=== PATIENT | male | born 1955 ===

== ENCOUNTER 2017-03-26 14:10 | Emergency (ER) | payer MEDICAID ==
[2017-03-26 14:12] VITALS: BMI 26.6
[2017-03-26] MEDS ORDERED: Naproxen 550 mg Tab PO STA (14:50)
[2017-03-26] MEDS ORDERED: Naproxen 550 mg Tab PO ONE (15:16)
--- NOTE | 2017-03-26 15:38 | C.PDOC ---
History Of Present Illness 61 year old male presents to the ED with complaints of a swelling to his right buttock for the last 4 days. Patient reports history of abscess to same location a month ago, was treated with abx from dermatology and it returned. . He denies fever, abd pain, vomiting, or other complaints at this time. Time Seen by Provider: 03/26/17 14:29 Chief Complaint (Nursing): Abnormal Skin Integrity History Per: Patient History/Exam Limitations: no limitations Onset/Duration Of Symptoms: Persistent Current Symptoms Are (Timing): Still Present Location Of Injury: Right: Buttock Quality Of Symptoms: Painful, Swollen Recent travel outside of the [place]: No Additional History Per: Prior Records Past Medical History Reviewed: Historical Data, Nursing Documentation, Vital Signs Vital Signs: Last Vital Signs Temp 97.7 F 03/26/17 15:49 Pulse 76 03/26/17 15:49 Resp 20 03/26/17 15:49 BP 173/93 H 03/26/17 15:49 Pulse Ox 98 03/26/17 20:40 - Medical History PMH: Asthma, HTN, Hypercholesterolemia Comment Only: Back Problems (Herniated disc) Surgical History: Cholecystectomy - [facility] Procedures ALCOHOL DETOXIFICATION (06/26/13) CLOSED ENDOSCOPIC BIOPSY OF LARGE INTESTINE (08/30/13) NAIL REMOVAL (02/02/13) Family History: States: Unknown Family Hx - Social History Hx Tobacco Use: Yes Hx Alcohol Use: Yes (former drinker) Hx Substance Use: No - Immunization History Hx Tetanus Toxoid Vaccination: Yes Hx Influenza Vaccination: Yes Hx Pneumococcal Vaccination: Yes Review Of Systems Constitutional: Negative for: Fever, Chills Cardiovascular: Negative for: Chest Pain Respiratory: Negative for: Shortness of Breath Gastrointestinal: Negative for: Nausea Skin: Positive for: Other (Abscess to the right buttock ) Physical Exam - Physical Exam Appears: Non-toxic, No Acute Distress Skin: Warm, Dry, Other (2.5 cm area of fluctuance, erythema, and tenderness with surrounding erythema to right buttock) Head: Atraumatic Eye(s): bilateral: Normal Inspection, EOMI Nose: Normal Oral Mucosa: Moist Neck: Normal ROM, Supple Chest: Symmetrical Respiratory: No Accessory Muscle Use Gastrointestinal/Abdominal: Soft, No Tenderness Male Genital: No Testicular Tenderness, No Testicular Swelling Extremity: Normal ROM Neurological/Psych: Oriented x3, Normal Speech, Normal Motor, Normal Sensation ED Course And Treatment O2 Sat by Pulse Oximetry: 98 (room air ) Progress Note: I & D preformed. Case discussed with Dr. Saunders who saw and evaluated the patient, agreed upon plan and discharge. Discussed woun care and re-evaluation in 2 days for packing removal. - Incision & Drainage Of Abscess Anesthesia: Lidocaine 2%, With Epi Used During Procedure: Continuous Pulse Oximetry, Rodding Anode Worker Prep Used: Sterile Water, Betadine Procedure: Incised W/Scalpel Blade#: (11), Drained Pus, Irrigated Cavity W/ Saline, Probed To Break Up Loculations, Packed W/Gauze, Cultures Obtained And Sent To Lab Disposition - Disposition Disposition: HOME/ ROUTINE Disposition Time: 15:33 Condition: STABLE Additional Instructions: Wound check in 2 days. Return to ER if symptoms persist or worsen. Prescriptions: Clindamycin [Cleocin] 300 mg PO Q6 #28 cap Instructions: Abscess Incision and Drainage (ED) Forms: [employer] (Kinyarwanda) Print Language: SOUTH SUDANESE - Clinical Impression Clinical Impression: Abscess - Scribe Statement The provider has reviewed the documentation as recorded by the Scribpriti Crenshaw All medical record entries made by the Trellibpriti were at my direction and personally dictated by me. I have reviewed the chart and agree that the record accurately reflects my personal performance of the history, physical exam, medical decision making, and the department course for this patient. I have also personally directed, reviewed, and agree with the discharge instructions and disposition.
[2017-03-26 15:50] VITALS: BP 173/93; PULSE 76; RESP 20; TEMP 97.7
[2017-03-26 18:08] VITALS: O2SAT 98
== END 2017-03-26 15:59 | disposition home or self-care (01) ==
LOC: C.ER 14:10
DX: L02.31 Cutaneous abscess of buttock (principal)

== ENCOUNTER 2017-03-28 12:26 | Emergency (ER) | payer MEDICAID ==
[2017-03-28 12:26] VITALS: BMI 26.6
--- NOTE | 2017-03-28 13:42 | C.PDOC ---
History Of Present Illness The patient is a 61yo male, presents to the ED for wound check s/p I&D of an abscess present on his right buttock 2 days ago. Pt reports the packing from his wound fell out on its own when he was changing the bandage. Pt denies any fever, chills, drainage or severe pain. Reports he is feeling better compared to prior the I&D. Pt offers no additional medical complaints. Time Seen by Provider: 03/28/17 12:35 Chief Complaint (Nursing): Wound Check History Per: Patient History/Exam Limitations: no limitations Onset/Duration Of Symptoms: Days Ago (2) Location Of Injury: Right: Buttock Quality Of Symptoms: denies: Painful, Swollen, Draining Past Medical History Reviewed: Historical Data, Nursing Documentation, Vital Signs Vital Signs: Last Vital Signs Temp 97.6 F 03/28/17 13:45 Pulse 68 03/28/17 13:45 Resp 20 03/28/17 13:45 BP 165/84 H 03/28/17 13:45 Pulse Ox 98 03/28/17 14:20 - Medical History PMH: Asthma, HTN, Hypercholesterolemia Comment Only: Back Problems (Herniated disc) Surgical History: Cholecystectomy - [facility] Procedures ALCOHOL DETOXIFICATION (06/26/13) CLOSED ENDOSCOPIC BIOPSY OF LARGE INTESTINE (08/30/13) NAIL REMOVAL (02/02/13) Family History: States: Unknown Family Hx - Social History Hx Tobacco Use: Yes Hx Alcohol Use: Yes (former drinker) Hx Substance Use: No - Immunization History Hx Tetanus Toxoid Vaccination: Yes Hx Influenza Vaccination: Yes Hx Pneumococcal Vaccination: Yes Review Of Systems Constitutional: Negative for: Fever, Chills Musculoskeletal: Positive for: Other (wound on right buttock s/p I&D of abscess) Physical Exam - Physical Exam Appears: Well, No Acute Distress Skin: Normal Color Extremity: Normal ROM, Other (0.5 cm incision site with scant purulent drainage on right buttock. Approximately 2cm diameter area of surrounding induration, no tenderness or warmth. ) ED Course And Treatment O2 Sat by Pulse Oximetry: 98 (RA) Pulse Ox Interpretation: Normal Medical Decision Making Medical Decision Making: Time: 1240 Impression: 61yo male presents for re-evaluation s/p I&D 2 days ago Plan: -- Wound culture checked and clindamycin not sensitive to the bacteria. Patient to be discharged home with tetracycline. 417 pm discussed with pharmacist form pt's pharmacy' tetracycline not covered by patient's insurance; rx changed to doxycycline 100 mg po bid x 7 days. Disposition Counseled Patient/Family Regarding: Diagnosis, Need For Followup, Rx Given - Disposition Referrals: Minor Mancilla MD [Staff Provider] - Disposition: HOME/ ROUTINE Disposition Time: 13:39 Condition: STABLE Additional Instructions: Stop taking Clindamycin; start new antibiotic, tetracycline. Follow up with Dr Mancilla in a few days. Let warm water run over right buttick in shower, wash well wtih soap and water. You may apply warm compresses to that area if needed. Return to ER for nay worsening symptoms. Prescriptions: Tetracycline [Tetracycline Cap] 250 mg PO QID #28 cap Instructions: Abscess (GEN) Forms: [employer] (Tristanian) Print Language: IRISH - Clinical Impression Clinical Impression: Wound check, abscess - Scribe Statement The provider has reviewed the documentation as recorded by the Jeff Olson Provider Attestation: All medical record entries made by the eJff were at my direction and personally dictated by me. I have reviewed the chart and agree that the record accurately reflects my personal performance of the history, physical exam, medical decision making, and the department course for this patient. I have also personally directed, reviewed, and agree with the discharge instructions and disposition.
[2017-03-28 13:45] VITALS: BP 165/84; PULSE 68; RESP 20; TEMP 97.6
[2017-03-28 14:15] VITALS: O2SAT 98
== END 2017-03-28 13:47 | disposition home or self-care (01) ==
LOC: C.ER 12:26
DX: Z48.00 Encounter for change or removal of nonsurgical wound dressing (principal)

== ENCOUNTER 2017-04-22 13:37 | Emergency (ER) | payer MEDICAID ==
[2017-04-22 13:41] VITALS: BMI 37.0
[2017-04-22 13:42] VITALS: PULSE 75; RESP 18; O2SAT 98
--- NOTE | 2017-04-22 14:26 | RAD ---
HISTORY: SOB COMPARISON: Chest x-ray performed 12/16/14 TECHNIQUE: Chest PA and lateral FINDINGS: Examination limited by habitus. LUNGS: No focal consolidation. Please note that chest x-ray has limited sensitivity for the detection of pulmonary masses. PLEURA: No significant pleural effusion identified. No definite pneumothorax . CARDIOVASCULAR: Heart size appears within normal limits. Ectatic aorta. Atherosclerotic calcifications. OSSEOUS STRUCTURES: Degenerative changes. VISUALIZED UPPER ABDOMEN: Unremarkable. OTHER FINDINGS: None. IMPRESSION: No focal consolidation, significant pleural effusion, or definite pneumothorax identified.
[2017-04-22 14:59] LABS: BASO % 0.3 % (0.0-2.0); EOS # 0.5 K/uL (0.0-0.7); EOS % 5.4 % (0.0-4.0); HEMATOCRIT 36.6 % (35.0-51.0); LYMPH # 3.5 K/uL (1.0-4.3); LYMPH % 40.9 % (20.0-40.0); MEAN CORPUSCULAR HGB CONC 34.6 g/dL (33.0-37.0); MEAN PLATELET VOLUME 8.6 fL (7.2-11.7); MONO # 1.2 K/uL (0.0-0.8); MONO % 14.6 % (0.0-10.0); RED CELL DISTRIBUTION WIDTH 13.6 % (11.5-14.5); WHITE BLOOD COUNT 8.5 K/uL (4.8-10.8)
[2017-04-22 15:06] LABS: MEAN CELL VOLUME 98.5 fL (80.0-94.0)
[2017-04-22 15:07] LABS: CHLORIDE 107 mmol/L (98-107)
[2017-04-22 15:08] LABS: POTASSIUM 3.7 mmol/L (3.6-5.2); SODIUM 143 mmol/L (132-148)
--- NOTE | 2017-04-22 15:08 | C.PDOC ---
History Of Present Illness 61 y/o male presents to Emergency Department for evaluation of bilateral leg swelling and chronic back pain. Notes he has history of kidney stones and states he recently had bilateral stones removed at [facility] in [place] but does not recall surgeon's name. Denies any urinary symptoms, n/v/d, abdominal pain, fever, or sensory changes. Time Seen by Provider: 04/22/17 13:46 Chief Complaint (Nursing): Lower Extremity Problem/Injury History Per: Patient History/Exam Limitations: no limitations Onset/Duration Of Symptoms: Days Current Symptoms Are (Timing): Still Present Recent travel outside of the [place]: No Additional History Per: Patient Past Medical History Reviewed: Historical Data, Nursing Documentation, Vital Signs Vital Signs: Last Vital Signs Temp 98.2 F 04/22/17 16:24 Pulse 75 04/22/17 16:24 Resp 18 04/22/17 16:24 BP 152/90 H 04/22/17 16:24 Pulse Ox 98 04/22/17 16:24 - Medical History PMH: Asthma, Back Problems (Herniated disc), HTN, Hypercholesterolemia Surgical History: Cholecystectomy - [facility] Procedures ALCOHOL DETOXIFICATION (06/26/13) CLOSED ENDOSCOPIC BIOPSY OF LARGE INTESTINE (08/30/13) NAIL REMOVAL (02/02/13) Family History: States: Unknown Family Hx - Social History Hx Tobacco Use: Yes Hx Alcohol Use: Yes (former drinker) Hx Substance Use: No - Immunization History Hx Tetanus Toxoid Vaccination: Yes Hx Influenza Vaccination: Yes Hx Pneumococcal Vaccination: Yes Review Of Systems Except As Marked, All Systems Reviewed And Found Negative. Constitutional: Negative for: Fever, Chills Gastrointestinal: Negative for: Nausea, Vomiting, Abdominal Pain Genitourinary: Negative for: Dysuria, Frequency, Incontinence, Hematuria Musculoskeletal: Positive for: Back Pain. Negative for: Leg Pain Skin: Positive for: Other (bilateral leg swelling) Neurological: Negative for: Weakness, Numbness Physical Exam - Physical Exam Appears: Non-toxic, No Acute Distress Skin: Normal Color, Warm, Dry Head: Atraumatic, Normacephalic Eye(s): bilateral: Normal Inspection Chest: Symmetrical Cardiovascular: Rhythm Regular, No Murmur Respiratory: Normal Breath Sounds, No Rales, No Rhonchi, No Wheezing Gastrointestinal/Abdominal: Soft, No Tenderness Back: Normal Inspection, No CVA Tenderness, No Vertebral Tenderness, Paraspinal Tenderness Extremity: Normal ROM, No Tenderness, Pedal Edema (trace edema bilaterally), No Calf Tenderness, Capillary Refill (<2 sec.), No Deformity Extremity: Bilateral: Atraumatic, Normal Color And Temperature, Normal ROM Pulses: Left Dorsalis Pedis: Normal, Right Dorsalis Pedis: Normal Neurological/Psych: Oriented x3, Normal Speech Gait: Steady ED Course And Treatment - Laboratory Results Result Diagrams: 04/22/17 14:56 04/22/17 14:56 Lab Interpretation: Normal ECG: Interpreted By Me ECG Rhythm: Sinus Rhythm ECG Interpretation: Normal Rate From EC O2 Sat by Pulse Oximetry: 98 (on RA) Pulse Ox Interpretation: Normal - Radiology CXR: Interpreted by Me CXR Interpretation: Yes: No Acute Disease Progress Note: Blood work, EKG, CXR, venous duplex scan of bilateral lower extremities ordered and reviewed. Pt was given Toradol. On re-evaluation, patient is resting comfortably, no acute distress. Bilateral LE doppler: (-) DVT as per refrigerator repair technician. Treated with macrobid 100 mg PO. On re-evaluation abdomen soft non-tender Reassessment Condition: Improved Medical Decision Making Medical Decision Making: Patient concerned that he has swelling in both legs Venous doppler US bilateral LE: (-) DVT Disposition - Disposition Referrals: Kyle Mancilla MD [Medical Doctor] - Disposition: HOME/ ROUTINE Disposition Time: 17:00 Condition: GOOD Additional Instructions: Return to ED if any increase symptoms Prescriptions: Nitrofurantoin Macrocrystals [Macrobid] 1 cap PO BID #14 cap Instructions: Urinary Tract Infection in Men (DC), Leg Edema (ED), Back Pain ( ED) Forms: [employer] [employer] (Lithuanian) - POA Present On Arrival: None - Clinical Impression Clinical Impression: Leg swelling, Back pain, UTI (urinary tract infection) - PA / CONTACT LENS CURVE GRINDER / Resident Statement MD/DO has reviewed & agrees with the documentation as recorded. - Scribe Statement The provider has reviewed the documentation as recorded by the Jeff Tam All medical record entries made by the Scribe were at my direction and personally dictated by me. I have reviewed the chart and agree that the record accurately reflects my personal performance of the history, physical exam, medical decision making, and the department course for this patient. I have also personally directed, reviewed, and agree with the discharge instructions and disposition.
[2017-04-22 15:10] LABS: ALKALINE PHOSPHATASE 91 U/L (38-126); AST/SGOT 29 U/L (17-59); BILIRUBIN,TOTAL 0.7 mg/dL (0.2-1.3); CARBON DIOXIDE 27 mmol/L (22-30); GFR AFRICAN-AMERICAN > 60; TOTAL PROTEIN 6.5 g/dL (6.3-8.3)
[2017-04-22 15:11] LABS: ALT/SGPT 27 U/L (21-72); BLOOD UREA NITROGEN 22 mg/dL (9-20); CALCIUM 8.7 mg/dl (8.6-10.4); GLUCOSE,RANDOM 98 mg/dL (75-110)
[2017-04-22 15:24] LABS: RBC URINE 1663 /hpf (0-3); URINE BACTERIA FEW (<OCC); URINE BILIRUBIN NEGATIVE (NEGATIVE); URINE BLOOD 3+ (NEGATIVE); URINE COLOR Yellow (YELLOW); URINE GLUCOSE (UA) NORMAL (Normal); URINE KETONE NEGATIVE (NEGATIVE); URINE LEUKOCYTE ESTERASE 1+ Leu/uL (Negative); URINE PROTEIN 1+ mg/dL (NEGATIVE)
[2017-04-22 15:25] LABS: WBC URINE 15 /hpf (0-5)
[2017-04-22 16:24] VITALS: BP 152/90; TEMP 98.2
--- NOTE | 2017-04-23 10:46 | VASCLAB ---
PROCEDURE: Lower Extremity Venous Duplex Exam. HISTORY: Edema PRIORS: None. TECHNIQUE: Bilateral common femoral, femoral, popliteal and posterior tibial, peroneal and great saphenous veins were evaluated. Flow was assessed with color Doppler, compressibility, assessment of phasic flow and augmentation response. Report prepared by MEGAN Meeks FINDINGS: RIGHT: 1. Common Femoral Vein: 1.1. Compressibility - Fully compressible: Thrombus - None : Flow - Phasic: Augmentation -Normal: Reflux - None. 2. Femoral Vein: 2.1. Compressibility - Fully compressible: Thrombus - None : Flow - Phasic: Augmentation -Normal: Reflux - None. 3. Popliteal Vein: 3.1. Compressibility - Fully compressible: Thrombus - None : Flow - Phasic: Augmentation -Normal: Reflux - None. 4. Posterior Tibial Vein: 4.1. Compressibility - Fully compressible: Thrombus - None: Flow - Phasic: Augmentation -Normal: Reflux - None. 5. Peroneal Vein: 5.1. Compressibility - Fully compressible: Thrombus - None: Flow - Phasic: Augmentation -Normal: Reflux - None. 6. Great Saphenous Vein: 6.1. Compressibility - Fully compressible: Thrombus - None: Flow - Phasic: Augmentation - Normal: Reflux - None. LEFT: 1. Common Femoral Vein: 1.1. Compressibility - Fully compressible: Thrombus - None: Flow - Phasic: Augmentation -Normal: Reflux - None. 2. Femoral Vein: 2.1. Compressibility - Fully compressible: Thrombus - None: Flow - Phasic: Augmentation -Normal: Reflux - None. 3. Popliteal Vein: 3.1. Compressibility - Fully compressible: Thrombus - None : Flow - Phasic: Augmentation -Normal: Reflux - None. 4. Posterior Tibial Vein: 4.1. Compressibility - Fully compressible: Thrombus - None: Flow - Phasic: Augmentation -Normal: Reflux - None. 5. Peroneal Vein: 5.1. Compressibility - Fully compressible: Thrombus - None: Flow - Phasic: Augmentation -Normal: Reflux - None. 6. Great Saphenous Vein: 6.1. Compressibility - Fully compressible: Thrombus - None: Flow - Phasic: Augmentation - Normal: Reflux - None. OTHER FINDINGS: Right: None significant. Left: None significant. IMPRESSION: Right: No evidence of deep or superficial vein thrombosis of the right lower extremity. Normal valve function noted of the right side. Left: No evidence of deep or superficial vein thrombosis of the left lower extremity. Normal valve function noted of the left side.
--- NOTE | 2017-04-23 17:14 | CARD ---
APPROVED REPORT EKG Measurement Heart [id number] <Conclusion> Normal sinus rhythm Normal ECG
== END 2017-04-22 16:25 | disposition home or self-care (01) ==
LOC: C.ER 13:37
DX: N39.0 Urinary tract infection, site not specified (principal); M79.89 Other specified soft tissue disorders; M54.9 Dorsalgia, unspecified
CPT/HCPCS: 71020; 80053; 81001; 83880; 85025; 93005; 93970; 96374; 99285; J1885

== ENCOUNTER 2017-06-04 18:33 | Inpatient (IN) | payer MEDICAID ==
[2017-06-04 18:33] VITALS: BMI 37.0
--- NOTE | 2017-06-04 19:26 | C.PDOC ---
History Of Present Illness 61 year old male, whose past medical history includes asthma and social history includes smoking, presents to the ED for evaluation of subjective fever, shortness of breath and cough which began around 5 days ago. Patient is s/p 1500cc of normal saline. Patient denies chest pain, leg swelling or history of CHF. PMD KERON RIOS Time Seen by Provider: 06/04/17 19:18 Chief Complaint (Nursing): Weakness/Neurological Deficit History Per: Patient History/Exam Limitations: no limitations Onset/Duration Of Symptoms: Days (5) Current Symptoms Are (Timing): Still Present Additional History Per: Patient Past Medical History Reviewed: Historical Data, Nursing Documentation, Vital Signs Vital Signs: Last Vital Signs Temp 97.8 F 06/04/17 22:09 Pulse 101 H 06/04/17 22:09 Resp 30 H 06/04/17 22:09 BP 106/55 L 06/04/17 22:09 Pulse Ox 98 06/04/17 22:16 - Medical History PMH: Asthma, HTN, Hypercholesterolemia Comment Only: Back Problems (Herniated disc) Surgical History: Cholecystectomy - [facility] Procedures ALCOHOL DETOXIFICATION (06/26/13) CLOSED ENDOSCOPIC BIOPSY OF LARGE INTESTINE (08/30/13) NAIL REMOVAL (02/02/13) Family History: States: Unknown Family Hx - Social History Hx Tobacco Use: Yes Hx Alcohol Use: Yes (former drinker) Hx Substance Use: No - Immunization History Hx Tetanus Toxoid Vaccination: Yes Hx Influenza Vaccination: Yes Hx Pneumococcal Vaccination: Yes Review Of Systems Constitutional: Positive for: Fever Cardiovascular: Negative for: Chest Pain Respiratory: Positive for: Cough, Shortness of Breath Musculoskeletal: Negative for: Other (leg swelling ) Physical Exam - Physical Exam Appears: No Acute Distress, Other (mild toxicity SBP 70) Skin: Normal Color, Warm, Dry Head: Atraumatic, Normacephalic Eye(s): bilateral: Normal Inspection Oral Mucosa: Moist Neck: Supple Chest: Symmetrical, No Deformity, No Tenderness Cardiovascular: Rhythm Regular, No Murmur Respiratory: No Rales, Rhonchi (bilaterally ), No Wheezing, Other (tachypneic, speaking in full sentences) Extremity: Normal ROM, Capillary Refill (less than 2 seconds ) Neurological/Psych: Oriented x3, Normal Speech, Normal Cognition Gait: Steady ED Course And Treatment - Laboratory Results Result Diagrams: 06/04/17 19:34 06/04/17 19:34 ECG: Interpreted By Me ECG Rhythm: Sinus Rhythm ECG Interpretation: Normal Rate From EC O2 Sat by Pulse Oximetry: 98 Pulse Ox Interpretation: Normal Progress Note: labs, EKG, CXR ordered and reviewed. Maxipime IV and IV Fluids administered. Progress - Re-Evaluation Re-evaluation Note: 06/04/17 19:57 IVF IN PROGRESS 107/68 06/04/17 20:20 APPEARS COMFORTABLE NAD. CODE SEPSIS ACTIVATED. NO UO SINCE INITIAL EVAL. CONT IVF 06/04/17 20:45 ICU CONSULT PENDING 06/04/17 20:53 D/W DR VALDEZ C/F ICU. AWARE OF ER FINDINGS, WILL CONSULT. 06/04/17 21:20 d/w dr RIOS C/F PMD WILL ADMIT 06/04/17 22:16 CO SOB, WHEEZING. VSS. B/L EXP WHEEZE NO RALES. 06/04/17 22:18 ACCEPTED FOR ICU - Data Reviewed Data Reviewed: Lab, Diagnostic imaging, EKG, Old records - Critical Care Citical Care: Excluding Proc Time Critical Care Time: 120 minutes - Continuity of Care Discussed patient case with:: Patient, Family-HIPPA compliant, On-call PMD-pt unassigned Discussed pt. case with [employer] product consultant/specialty: Pulmonary/Crit. Care Disposition Counseled Patient/Family Regarding: Studies Performed, Diagnosis - Disposition Disposition: HOSPITALIZED Disposition Time: 21:20 Condition: SERIOUS Forms: [facility] (Brazilian) - POA Present On Arrival: None Core Measure Indicators: Code Sepsis - Clinical Impression Clinical Impression: Sepsis due to urinary tract infection, Hypotension, Acute renal insufficiency, Hypokalemia - Scribe Statement The provider has reviewed the documentation as recorded by the Scribe (Joy Tam) Provider Attestation: All medical record entries made by the Scribe were at my direction and personally dictated by me. I have reviewed the chart and agree that the record accurately reflects my personal performance of the history, physical exam, medical decision making, and the department course for this patient. I have also personally directed, reviewed, and agree with the discharge instructions and disposition. Decision To Admit - Pt Status Changed To: Hospital Disposition Of: Inpatient - Admit Certification Admit to Inpatient:: After my assessment, the patient will require hospitalization for at least two midnights. This is because of the severity of symptoms shown, intensity of services needed, and/or the medical risk in this patient being treated as an outpatient. - InPatient: Physician Admission Certification: I certify that this patient requires 2 or more midnights of care for the following reason:: SEE NOTE - . Bed Request Type: ICU Admitting Physician: Minor Rios Patient Diagnosis: Sepsis due to urinary tract infection, Hypotension, Acute renal insufficiency, Hypokalemia
[2017-06-04] MEDS ORDERED: Cefepime IV 2 gm in Dextrose 2 GM/100 ML BAG IVPB STA (19:28)
[2017-06-04 19:40] LABS: EOS # 0.1 K/uL (0.0-0.7); EOS % 0.4 % (0.0-4.0); HEMATOCRIT 29.8 % (35.0-51.0); LYMPH # 0.4 K/uL (1.0-4.3); LYMPH % 1.8 % (20.0-40.0); MEAN CELL VOLUME 97.6 fL (80.0-94.0); MEAN CORPUSCULAR HEMOGLOBIN 33.2 pg (27.0-31.0); MEAN PLATELET VOLUME 9.2 fL (7.2-11.7); MONO # 0.2 K/uL (0.0-0.8); MONO % 0.7 % (0.0-10.0); PLATELET COUNT 123 K/uL (130-400); RED CELL DISTRIBUTION WIDTH 14.3 % (11.5-14.5)
[2017-06-04 19:44] LABS: WHITE BLOOD COUNT 21.2 K/uL (4.8-10.8)
[2017-06-04 19:49] LABS: CHLORIDE 99 mmol/L (98-107); INR 1.7; POTASSIUM 2.8 mmol/L (3.6-5.2); SODIUM 131 mmol/L (132-148)
[2017-06-04 19:49] LABS: ABG ALLEN TEST POS; DRAW SITE RRA
[2017-06-04 19:51] LABS: ALB/GLOB RATIO 0.6 (1.0-2.1); ALKALINE PHOSPHATASE 180 U/L (38-126); AST/SGOT 49 U/L (17-59); BILIRUBIN,TOTAL 3.7 mg/dL (0.2-1.3); CARBON DIOXIDE 19 mmol/L (22-30); GFR AFRICAN-AMERICAN 39
[2017-06-04 19:52] LABS: ALT/SGPT 30 U/L (21-72); BLOOD UREA NITROGEN 28 mg/dL (9-20); CALCIUM 7.5 mg/dl (8.6-10.4); GLUCOSE,RANDOM 89 mg/dL (75-110); MAGNESIUM 1.7 mg/dL (1.6-2.3)
[2017-06-04] MEDS ORDERED: Potassium Chloride 20 mEq/15 ml LIQ UD PO STA (20:09)
[2017-06-04 20:14] LABS: NEUTROPHIL 55 % (50-75); TOTAL CELLS COUNTED 100
[2017-06-04] MEDS ORDERED: Potassium Chloride 20 mEq/15 ml LIQ UD ONE (20:18)
[2017-06-04 21:04] LABS: RBC URINE 17 /hpf (0-3); URINE BACTERIA MOD (<OCC); URINE BILIRUBIN NEGATIVE (NEGATIVE); URINE BLOOD 2+ (NEGATIVE); URINE COLOR Amber (YELLOW); URINE GLUCOSE (UA) NORMAL (Normal); URINE KETONE NEGATIVE (NEGATIVE); URINE PROTEIN 2+ mg/dL (NEGATIVE); WBC CLUMPS MANY /hpf; WBC URINE 3035 /hpf (0-5)
[2017-06-04 21:17] LABS: URINE LEUKOCYTE ESTERASE 3+ Leu/uL (Negative)
[2017-06-04] MEDS ORDERED: Albuterol-Ipratrop 3 mg / 0.5 (3 ml) UD ONE ×2 (22:12→22:26)
[2017-06-04 22:13] LABS: VENOUS BLOOD GAS BASE EXCESS -9.9 mmol/L (0.0-2.0); VENOUS BLOOD GAS PCO2 35 mmHg (40-60); VENOUS BLOOD PH 7.27 (7.32-7.43)
[2017-06-04] MEDS ORDERED: Potassium Phosphate 15 MMOLE in Sodium Chloride 0.9% 250 ML IVPB ONE (22:19)
[2017-06-04] MEDS: Albuterol 0.083% Inhal Sol (2.5 mg/3 mL) UD INH SCH (22:33)
[2017-06-04] MEDS ORDERED: Potassium Phosphate 15 MMOLE in Dextrose 5% In Water 250 ML IVPB ONE (23:00)
[2017-06-04] MEDS ORDERED: Lactated Ringer's 1,000 ML IV ONE (23:24)
--- NOTE | 2017-06-04 23:43 | CP.PCM.CON ---
History of Present Illness - History of Present Illness History of Present Illness: 61 M with h/l HTN, asthma, ureteric calculi with h/o lithotripsy, BPH, tobacco abuse, ex alcohol abuse, chronic low back pain came to ER with c/o being sick x1 wk with fever, weakness, dizzy today, progressively getting worse. In ER was found hypotensive, needed about 5 lit of ivf, low in electrolytes K, mg, phos, JD noticed with creat 2.1, initial CXR fine, maintained spo2, hr in 100s, BP 100/60 range, c/o some chronic low back pain. Patient did c/o worsening asthma, fonud to be wheezing but maintaining spo2 in 97 on 2 lit nc. PMH as above PSH litho tirpsy Allergy moxifoxacin noticed in chart, but patient denied any allergies Meds noticed coreg,flomax, neb, chlolesterol meds Family history not contributory Social smokes 1PPD, drinks small amount few days a wk 1-2 drinks, denied any drugs Review of Systems - Review of Systems All systems: reviewed and no additional remarkable complaints except (HPI) Past Patient History - Infectious Disease Hx of Infectious Diseases: None - Past Social History Smoking Status: Heavy Smoker > 10 Cigarettes Daily Alcohol: < 2 Drinks/Day Drugs: Denies Home Situation {Lives}: With Family - CARDIAC Hx Hypercholesterolemia: Yes Hx Hypertension: Yes - PULMONARY Hx Asthma: Yes - NEUROLOGICAL HX Cerebrovascular Accident: No - ENDOCRINE/METABOLIC Hx Endocrine Disorders: Yes Hx Diabetes Mellitus Type 1: Yes - HEMATOLOGICAL/ONCOLOGICAL Hx Cancer: No - MUSCULOSKELETAL/RHEUMATOLOGICAL Hx Musculoskeletal Disorders: Yes Hx Herniated Disk: Yes - PSYCHIATRIC Hx Substance Use: No - SURGICAL HISTORY Hx Cholecystectomy: Yes - ANESTHESIA Hx Anesthesia: Yes Hx Anesthesia Reactions: No Meds Allergies/Adverse Reactions: Allergies Allergy/AdvReac Type Severity Reaction Status Date / Time moxifloxacin HCl Allergy Intermediate RASH Verified 06/04/17 18:50 [From Avelox] - Medications Medications: Current Medications Heparin Sodium (Porcine) (Heparin) 5,000 units SC Q8 PAM Potassium Phosphate 15 mmole/ (Dextrose) 255 mls @ 42.5 mls/hr IVPB ONCE ONE Stop: 06/05/17 04:59 Last Admin: 06/04/17 23:00 Dose: 42.5 mls/hr Lactated Ringer's (Lactated Ringer's) 1,000 mls @ 1,000 mls/hr IV .Q1H ONE Stop: 06/05/17 00:23 Last Admin: 06/04/17 23:26 Dose: 1,000 mls/hr Meropenem 1 gm/ Sodium (Chloride) 100 mls @ 200 mls/hr IVPB Q12H PAM Pantoprazole Sodium (Protonix Ec Tab) 40 mg PO DAILY PAM Physical Exam - Additional Findings Additional findings: * HEENT VALERIE * Neck supple * Chest Wheezing exp, diffuse * PA soft, nt bs present, no CVA tenderness * Ext no edema * [employer] awake oriented x3, moving all ext * skin normal turgor euvoliemic after 4 lit of fluid. Results - Vital Signs Recent Vital Signs: Last Vital Signs Temp 97 F L 06/04/17 23:24 Pulse 99 H 06/04/17 23:24 Resp 20 06/04/17 23:24 BP 91/49 L 06/04/17 23:24 Pulse Ox 95 06/04/17 23:24 - Labs Result Diagrams: 06/04/17 19:34 06/04/17 19:34 Labs: Laboratory Results - last 24 hr 06/04/17 06/04/17 06/04/17 19:26 19:34 19:34 WBC 21.2 H D RBC 3.05 L Hgb 10.1 L D Hct 29.8 L MCV 97.6 H MCH 33.2 H MCHC 34.0 RDW 14.3 Plt Count 123 L MPV 9.2 Neut % (Auto) 97.1 H Lymph % (Auto) 1.8 L [place] % (Auto) 0.7 Eos % (Auto) 0.4 Baso % (Auto) 0.0 Neut # 20.6 H Lymph # 0.4 L [place] # 0.2 Eos # 0.1 Baso # 0.0 Neutrophils % (Manual) 55 Band Neutrophils % 43 H* Lymphocytes % (Manual) 1 L Monocytes % (Manual) 1 Platelet Estimate Slightly decreased L Hypochromasia (manual) Slight Poikilocytosis (manual Slight Anisocytosis (manual) Slight Microcytosis (manual) Slight PT 19.8 H INR 1.7 APTT 30 Puncture Site pCO2 pO2 HCO3 ABG pH ABG Total CO2 ABG O2 Saturation ABG Base Excess Tenzin Test ABG Potassium VBG pH VBG pCO2 VBG HCO3 VBG Total CO2 VBG O2 Sat (Calc) VBG Base Excess VBG Potassium Glucose Lactate Liter Flow Blood Gas Comments Crit Value Called To Crit Value Called By Crit Value Read Back Blood Gas Notified Time Sodium Potassium Chloride Carbon Dioxide Anion Gap BUN Creatinine Est GFR ( Amer) Est GFR (Non-Af Amer) POC Glucose (mg/dL) 95 Random Glucose Calcium Phosphorus Magnesium Total Bilirubin AST ALT Alkaline Phosphatase Troponin I NT-Pro-B Natriuret Pep Total Protein Albumin Globulin Albumin/Globulin Ratio Arterial Blood Potassium Venous Blood Potassium Urine Color Urine Clarity Urine pH Ur Specific [place] Urine Protein Urine Glucose (UA) Urine Ketones Urine Blood Urine Nitrate Urine Bilirubin Urine Urobilinogen Ur Leukocyte Esterase Urine WBC (Auto) Urine RBC (Auto) Urine WBC Clumps (Auto) Ur Squamous Epith Cells Urine Bacteria Influenza Typ A,B (EIA) 06/04/17 06/04/17 06/04/17 19:34 19:40 20:54 WBC RBC Hgb Hct MCV MCH MCHC RDW Plt Count MPV Neut % (Auto) Lymph % (Auto) [place] % (Auto) Eos % (Auto) Baso % (Auto) Neut # Lymph # [place] # Eos # Baso # Neutrophils % (Manual) Band Neutrophils % Lymphocytes % (Manual) Monocytes % (Manual) Platelet Estimate Hypochromasia (manual) Poikilocytosis (manual Anisocytosis (manual) Microcytosis (manual) PT INR APTT Puncture Site Rra pCO2 33 L pO2 42 L* HCO3 19.7 L ABG pH 7.36 ABG Total CO2 19.6 L ABG O2 Saturation 82.5 L ABG Base Excess -5.9 L Tenzin Test Pos ABG Potassium 2.4 L* VBG pH VBG pCO2 VBG HCO3 VBG Total CO2 VBG O2 Sat (Calc) VBG Base Excess VBG Potassium Glucose 81 Lactate 2.8 H Liter Flow 2.0 Blood Gas Comments Mixed abg Crit Value Called To Dr britton Crit Value Called By Juanito bolivar Crit Value Read Back Y Blood Gas Notified Time 1950 Sodium 131 L 138.0 Potassium 2.8 L Chloride 99 109.0 H Carbon Dioxide 19 L Anion Gap 16 BUN 28 H Creatinine 2.1 H Est GFR ( Amer) 39 Est GFR (Non-Af Amer) 32 POC Glucose (mg/dL) Random Glucose 89 Calcium 7.5 L Phosphorus 1.0 L* Magnesium 1.7 Total Bilirubin 3.7 H AST 49 ALT 30 Alkaline Phosphatase 180 H D Troponin I < 0.0120 NT-Pro-B Natriuret Pep 352 Total Protein 6.0 L Albumin 2.3 L D Globulin 3.7 Albumin/Globulin Ratio 0.6 L Arterial Blood Potassium 2.4 L* Venous Blood Potassium Urine Color [place] Urine Clarity Turbid Urine pH 5.0 Ur Specific [place] 1.016 Urine Protein 2+ H Urine Glucose (UA) Normal Urine Ketones Negative Urine Blood 2+ H Urine Nitrate Negative Urine Bilirubin Negative Urine Urobilinogen 4.0 Ur Leukocyte Esterase 3+ H Urine WBC (Auto) 3035 H Urine RBC (Auto) 17 H Urine WBC Clumps (Auto) Many H Ur Squamous Epith Cells 4 Urine Bacteria Mod H Influenza Typ A,B (EIA) 06/04/17 06/04/17 22:10 Unknown WBC RBC Hgb Hct MCV MCH MCHC RDW Plt Count MPV Neut % (Auto) Lymph % (Auto) [place] % (Auto) Eos % (Auto) Baso % (Auto) Neut # Lymph # [place] # Eos # Baso # Neutrophils % (Manual) Band Neutrophils % Lymphocytes % (Manual) Monocytes % (Manual) Platelet Estimate Hypochromasia (manual) Poikilocytosis (manual Anisocytosis (manual) Microcytosis (manual) PT INR APTT Puncture Site pCO2 pO2 49 HCO3 ABG pH ABG Total CO2 ABG O2 Saturation ABG Base Excess Tenzin Test ABG Potassium VBG pH 7.27 L VBG pCO2 35 L VBG HCO3 16.7 VBG Total CO2 17.2 L VBG O2 Sat (Calc) 86.8 H VBG Base Excess -9.9 L VBG Potassium 3.1 L Glucose 73 L Lactate 2.4 H Liter Flow Blood Gas Comments Crit Value Called To Crit Value Called By Crit Value Read Back Blood Gas Notified Time Sodium 141.0 Potassium Chloride 116.0 H Carbon Dioxide Anion Gap BUN Creatinine Est GFR ( Amer) Est GFR (Non-Af Amer) POC Glucose (mg/dL) Random Glucose Calcium Phosphorus Magnesium Total Bilirubin AST ALT Alkaline Phosphatase Troponin I NT-Pro-B Natriuret Pep Total Protein Albumin Globulin Albumin/Globulin Ratio Arterial Blood Potassium Venous Blood Potassium 3.1 L Urine Color Urine Clarity Urine pH Ur Specific [place] Urine Protein Urine Glucose (UA) Urine Ketones Urine Blood Urine Nitrate Urine Bilirubin Urine Urobilinogen Ur Leukocyte Esterase Urine WBC (Auto) Urine RBC (Auto) Urine WBC Clumps (Auto) Ur Squamous Epith Cells Urine Bacteria Influenza Typ A,B (EIA) Negative for flu a/b Assessment & Plan - Assessment and Plan (Free Text) Assessment: * Sepsis, early shock, source unclear suspected urine/Calculi * H/o ureteric caluli * BPH * HTN history * Tobacco abuse counselled * Plan: * Meropenem added due to shock * CT chest abd pelvis to look for surce, urine * Louie * GI/DVT prophylaxis * Echo * Nebs, inhaled steroids * Vasopressor, central line if persistent hypotension, possibility of steroids * See orders for detail.
[2017-06-05] MEDS: Meropenem 1 GM in Sodium Chloride 0.9% 100 ML IVPB SCH ×2 (00:20→10:51)
--- NOTE | 2017-06-05 01:02 | CT ---
EXAM: CT Abdomen and Pelvis Without Intravenous Contrast CLINICAL HISTORY: 61 years old, male; Pain; Abdominal pain; Chest pain; Additional info: Sepsis, hypotension TECHNIQUE: Axial computed tomography images of the abdomen and pelvis without intravenous contrast. All CT scans at this facility use one or more dose reduction techniques, viz.: automated exposure control; ma/kV adjustment per patient size (including targeted exams where dose is matched to indication; i.e. head); or iterative reconstruction technique. Coronal and sagittal reformatted images were created and reviewed. COMPARISON: No relevant prior studies available. FINDINGS: ABDOMEN: Liver: No acute findings Gallbladder and bile ducts: The gallbladder is surgically absent. No intra-extrahepatic biliary ductal dilation. Pancreas: Limited evaluation secondary to the lack of intravenous contrast. Spleen: No acute findings. Adrenals: No acute findings. Kidneys and ureters: Moderate right-sided hydroureteronephrosis extending to the proximal right ureter where a 9 mm stone is identified. The left kidney and ureter are unremarkable. PELVIS: Bladder: The bladder is decompressed, and otherwise unremarkable. Reproductive: No acute findings. Appendix: The appendix is of normal-caliber (series 6, image 134). ABDOMEN and PELVIS: Stomach and bowel: Diffuse mural thickening within the colon, a nonspecific finding. Colonic diverticulosis, without inflammation. Peritoneum: No acute findings. Lymph nodes: Limited evaluation without intravenous contrast. Vasculature: No aortic aneurysm. Calcified atherosclerotic disease. Bones: No acute fracture. IMPRESSION: Moderate right-sided hydroureteronephrosis secondary to a 9 mm stone in the proximal right ureter. Multiple nonacute findings, as detailed above. EXAM: CT Chest Without Intravenous Contrast CLINICAL HISTORY: 61 years old, male; Pain; Abdominal pain; Chest pain; Additional info: Sepsis, hypotension TECHNIQUE: Axial computed tomography images of the chest without intravenous contrast. All CT scans at this facility use one or more dose reduction techniques, viz.: automated exposure control; ma/kV adjustment per patient size (including targeted exams where dose is matched to indication; i.e. head); or iterative reconstruction technique. Coronal and sagittal reformatted images were created and reviewed. COMPARISON: No relevant prior studies available. FINDINGS: Lungs: No mass. No consolidation. Bibasilar atelectasis. Pleural spaces: No significant effusion. No pneumothorax. Heart: No cardiomegaly. No significant pericardial effusion. Vasculature: No aortic aneurysm. Calcified atherosclerotic disease. Lymph nodes: Moderate mediastinal lymphadenopathy. The largest lymph node is within the right paratracheal position measuring 15 mm in short axis dimension. Bones: No acute fracture. Decreased attenuation within the left lobe of the thyroid gland. IMPRESSION: Bibasilar atelectasis with mediastinal lymphadenopathy.
[2017-06-05] MEDS ORDERED: Lactated Ringer's 1,000 ML IV ONE (02:34)
[2017-06-05] MEDS: Sodium Chloride 0.9% 1,000 ML IV SCH ×3 (04:06→19:01)
--- NOTE | 2017-06-05 08:03 | RAD ---
HISTORY: Sepsis Patient COMPARISON: No prior. FINDINGS: LUNGS: Diminished history effort however there is no acute infiltrate appreciated bilaterally. PLEURA: No significant pleural effusion identified, no pneumothorax apparent. CARDIOVASCULAR: Likely technical magnification of the cardiac silhouette. No pulmonary derangement identified. OSSEOUS STRUCTURES: No significant abnormalities. VISUALIZED UPPER ABDOMEN: Normal. OTHER FINDINGS: None. IMPRESSION: No acute infiltrate bilaterally. Diminished history volume.
[2017-06-05 08:24] LABS: POTASSIUM 4.3 mmol/L (3.6-5.2)
[2017-06-05 08:28] LABS: BILIRUBIN,TOTAL 4.2 mg/dL (0.2-1.3)
[2017-06-05 08:29] LABS: ALB/GLOB RATIO 0.6 (1.0-2.1); TOTAL PROTEIN 5.8 g/dL (6.3-8.3)
[2017-06-05 08:30] LABS: CALCIUM 6.9 mg/dl (8.6-10.4); MAGNESIUM 1.4 mg/dL (1.6-2.3); PHOSPHOROUS 4.5 mg/dL (2.5-4.5)
[2017-06-05] MEDS: Budesonide 0.5 mg/2 ml Inhal Susp UD INH SCH ×2 (08:36→18:44)
[2017-06-05] MEDS: Albuterol-Ipratrop 3 mg / 0.5 (3 ml) UD INH SCH ×4 (08:36→18:44)
[2017-06-05] MEDS ORDERED: Midazolam 2 MG/2 ML VIAL ONE (10:40)
[2017-06-05] MEDS ORDERED: Propofol 10 mg/ml Inj (20 ML) ONE (10:41)
[2017-06-05] MEDS ORDERED: Phenylephrine 10 mg/ml Inj ONE (10:43)
[2017-06-05] MEDS: Pantoprazole 40 mg EC Tab PO SCH ×2 (10:52→16:11)
--- NOTE | 2017-06-05 11:07 | RAD ---
PROCEDURE: CHEST RADIOGRAPH, 1 VIEW HISTORY: new [facility] COMPARISON: Portable chest 06/04/2017. FINDINGS: Interval left central venous line in place by an apparent internal jugular approach with tip terminating at the superior vena cava. LUNGS: Clear. PLEURA: No pneumothorax or pleural fluid seen. CARDIOVASCULAR: Prominent cardiac silhouette is again appreciated with accentuated pulmonary vascular suspicious for CHF. Clinically correlate further. OSSEOUS STRUCTURES: No significant abnormalities. VISUALIZED UPPER ABDOMEN: Normal. OTHER FINDINGS: None. IMPRESSION: Findings suspicious for early CHF. No acute infiltrate bilaterally or pleural effusion. Patient rotated toward the right limiting interpretation. Further clinical correlation is advised.
--- NOTE | 2017-06-05 11:57 | CARD ---
APPROVED REPORT EKG Measurement Heart [id number] <Conclusion> Normal sinus rhythm Septal infarct, age undetermined Abnormal ECG
--- NOTE | 2017-06-05 12:43 | CP.CCUPN ---
<Neri Serna E - Last Filed: 06/05/17 19:03> CCU Subjective - Physician Review Subjective (Free Text): Patient was seen and examined at bedside s/p Cytoscopy with R stent insertion. Patient reports that he is doing well, tolerating tolerating. Patient denies chest pain, SOB, palpitations, fever, chills, nausea and vomiting but admits to back pain, that is chronic. CCU Objective - Vital Signs / Intake & Output Vital Signs (Last 4 hours): Vital Signs Temp Pulse Resp BP Pulse Ox 06/05/17 12:00 96 H 20 144/70 99 06/05/17 11:00 98.2 F 95 H 20 148/80 98 06/05/17 10:00 98.1 F 90 20 152/64 H 98 Intake and Output (Last 8hrs): Intake & Output 06/04/17 06/05/17 06/05/17 22:59 06:59 14:59 Intake Total 2791.5 1100 Output Total 600 800 Balance 2191.5 300 Weight 190 lb 262 lb 5.601 oz Intake: Intake, IV Amount 2311.5 1100 Left Proximal Port 450 Internal Jugular Left Wrist 2099 450 Right Hand 212.5 200 Oral 480 Output: Urine 600 800 Urethral (Louie) 500 800 Urine, Voided 100 Other: # Bowel Movements 1 1 - Physical Exam Head: Positive for: Atraumatic, Normocephalic Conjunctiva: Positive for: Normal Mouth: Positive for: Moist Mucous Membranes Respiratory/Chest: Positive for: Good Air Exchange. Negative for: Respiratory Distress, Accessory Muscle Use Cardiovascular: Positive for: Regular Rate and Rhythm, Normal S1, S2 Abdomen: Positive for: Normal Bowel Sounds. Negative for: Tenderness, Peritoneal Signs Upper Extremity: Positive for: Normal Inspection. Negative for: Edema Lower Extremity: Positive for: Normal Inspection. Negative for: Edema Neurological: Positive for: GCS=15, Speech Normal Skin: Positive for: Normal Color Psychiatric: Positive for: Alert, Oriented x 3 - Medications Active Medications: Active Medications Generic Name Dose Route Start Last Admin Trade Name Freq PRN Reason Stop Dose Admin Albuterol/Ipratropium 3 ml 06/05/17 02:00 06/05/17 08:36 Duoneb 3 Mg/0.5 Mg (3 Ml) Ud INH 3 ml RQ6 PAM Administration Budesonide 0.5 mg 06/05/17 08:00 06/05/17 08:36 Pulmicort Respules INH 0.5 mg RQ12 PAM Administration Heparin Sodium (Porcine) 5,000 units 06/05/17 06:00 06/05/17 06:37 Heparin SC 5,000 units Q8 PAM Administration Meropenem 1 gm/ Sodium 100 mls @ 200 mls/hr 06/04/17 23:30 06/05/17 10:51 Chloride IVPB 200 mls/hr Q12H PAM Administration Sodium Chloride 1,000 mls @ 150 mls/hr 06/05/17 04:00 06/05/17 10:50 Sodium Chloride 0.9% IV Not Given .[id number] PAM Pantoprazole Sodium 40 mg 06/05/17 10:00 06/05/17 10:52 Protonix Ec Tab PO Not Given DAILY PAM - Patient Studies Lab Studies: Microbiology Studies 06/04/17 Unknown Urine Culture - Preliminary Urine Gram Negative Gabino Lab Studies 06/05/17 06/05/17 06/04/17 Range/Units 07:41 06:50 Unknown WBC (4.8-10.8) K/uL RBC (4.40-5.90) Mil/uL Hgb (12.0-18.0) g/dL Hct (35.0-51.0) % MCV (80.0-94.0) fL MCH (27.0-31.0) pg MCHC (33.0-37.0) g/dL RDW (11.5-14.5) % Plt Count (130-400) K/uL MPV (7.2-11.7) fL Neut % (Auto) (50.0-75.0) % Lymph % (Auto) (20.0-40.0) % [place] % (Auto) (0.0-10.0) % Eos % (Auto) (0.0-4.0) % Baso % (Auto) (0.0-2.0) % Neut # (1.8-7.0) K/uL Lymph # (1.0-4.3) K/uL [place] # (0.0-0.8) K/uL Eos # (0.0-0.7) K/uL Baso # (0.0-0.2) K/uL Neutrophils % (Manual) (50-75) % Band Neutrophils % (0-2) % Lymphocytes % (Manual) (20-40) % Monocytes % (Manual) (0-10) % Platelet Estimate (NORMAL) Hypochromasia (manual) Poikilocytosis (manual Anisocytosis (manual) Microcytosis (manual) PT (9.7-12.2) SECONDS INR APTT (21-34) SECONDS Puncture Site pCO2 (35-45) mm/Hg pO2 (80-100) mm/Hg HCO3 (21-28) mmol/L ABG pH (7.35-7.45) ABG Total CO2 (22-28) mmol/L ABG O2 Saturation (95-98) % ABG Base Excess (-2.0-3.0) mmol/L Tenz[place] Test ABG Potassium (3.6-5.2) mmol/L VBG pH (7.32-7.43) VBG pCO2 (40-60) mmHg VBG HCO3 mmol/L VBG Total CO2 (22-28) mmol/L VBG O2 Sat (Calc) (40-65) % VBG Base Excess (0.0-2.0) mmol/L VBG Potassium (3.6-5.2) mmol/L Glucose (75-110) mg/dl Lactate (0.7-2.1) mmol/L Liter Flow Blood Gas Comments Crit Value Called To Crit Value Called By Crit Value Read Back Blood Gas Notified Time Sodium 132 (132-148) mmol/L Potassium 4.3 (3.6-5.2) mmol/L Chloride 104 (98-107) mmol/L Carbon Dioxide 20 L (22-30) mmol/L Anion Gap 12 (10-20) BUN 26 H (9-20) mg/dL Creatinine 1.8 H (0.8-1.5) mg/dL Est GFR ( Amer) 47 Est GFR (Non-Af Amer) 39 POC Glucose (mg/dL) (65-110) mg/dL Random Glucose 90 (75-110) mg/dL Calcium 6.9 L (8.6-10.4) mg/dl Phosphorus 4.5 (2.5-4.5) mg/dL Magnesium 1.4 L (1.6-2.3) mg/dL Total Bilirubin 4.2 H (0.2-1.3) mg/dL AST 74 H D (17-59) U/L ALT 39 (21-72) U/L Alkaline Phosphatase 125 (38-126) U/L Troponin I (0.00-0.120) ng/mL NT-Pro-B Natriuret Pep (0-900) pg/mL Total Protein 5.8 L (6.3-8.3) g/dL Albumin 2.2 L (3.5-5.0) g/dL Globulin 3.6 (2.2-3.9) gm/dL Albumin/Globulin Ratio 0.6 L (1.0-2.1) Procalcitonin 32.79 H (0.19-0.49) NG/ML Arterial Blood Potassium (3.6-5.2) mmol/L Venous Blood Potassium (3.6-5.2) mmol/L Urine Color (YELLOW) Urine Clarity (Clear) Urine pH (5.0-8.0) Ur Specific [place] (1.003-1.030) Urine Protein (NEGATIVE) mg/dL Urine Glucose (UA) (Normal) mg/dL Urine Ketones (NEGATIVE) mg/dL Urine Blood (NEGATIVE) Urine Nitrate (NEGATIVE) Urine Bilirubin (NEGATIVE) Urine Urobilinogen (0.2-1.0) mg/dL Ur Leukocyte Esterase (Negative) Juan/uL Urine WBC (Auto) (0-5) /hpf Urine RBC (Auto) (0-3) /hpf Urine WBC Clumps (Auto) (NONE) /hpf Ur Squamous Epith Cells (0-5) /hpf Urine Bacteria (<OCC) Influenza Typ A,B (EIA) Negative for flu a/b (NEGATIVE) 06/04/17 06/04/17 06/04/17 Range/Units 22:10 20:54 19:40 WBC (4.8-10.8) K/uL RBC (4.40-5.90) Mil/uL Hgb (12.0-18.0) g/dL Hct (35.0-51.0) % MCV (80.0-94.0) fL MCH (27.0-31.0) pg MCHC (33.0-37.0) g/dL RDW (11.5-14.5) % Plt Count (130-400) K/uL MPV (7.2-11.7) fL Neut % (Auto) (50.0-75.0) % Lymph % (Auto) (20.0-40.0) % [place] % (Auto) (0.0-10.0) % Eos % (Auto) (0.0-4.0) % Baso % (Auto) (0.0-2.0) % Neut # (1.8-7.0) K/uL Lymph # (1.0-4.3) K/uL [place] # (0.0-0.8) K/uL Eos # (0.0-0.7) K/uL Baso # (0.0-0.2) K/uL Neutrophils % (Manual) (50-75) % Band Neutrophils % (0-2) % Lymphocytes % (Manual) (20-40) % Monocytes % (Manual) (0-10) % Platelet Estimate (NORMAL) Hypochromasia (manual) Poikilocytosis (manual Anisocytosis (manual) Microcytosis (manual) PT (9.7-12.2) SECONDS INR APTT (21-34) SECONDS Puncture Site Rra pCO2 33 L (35-45) mm/Hg pO2 49 42 L* (80-100) mm/Hg HCO3 19.7 L (21-28) mmol/L ABG pH 7.36 (7.35-7.45) ABG Total CO2 19.6 L (22-28) mmol/L ABG O2 Saturation 82.5 L (95-98) % ABG Base Excess -5.9 L (-2.0-3.0) mmol/L Tenzin Test Pos ABG Potassium 2.4 L* (3.6-5.2) mmol/L VBG pH 7.27 L (7.32-7.43) VBG pCO2 35 L (40-60) mmHg VBG HCO3 16.7 mmol/L VBG Total CO2 17.2 L (22-28) mmol/L VBG O2 Sat (Calc) 86.8 H (40-65) % VBG Base Excess -9.9 L (0.0-2.0) mmol/L VBG Potassium 3.1 L (3.6-5.2) mmol/L Glucose 73 L 81 (75-110) mg/dl Lactate 2.4 H 2.8 H (0.7-2.1) mmol/L Liter Flow 2.0 Blood Gas Comments Mixed abg Crit Value Called To Dr britton Crit Value Called By Juanito bolivar Crit Value Read Back Y Blood Gas Notified Time 1949 Sodium 141.0 138.0 (132-148) mmol/L Potassium (3.6-5.2) mmol/L Chloride 116.0 H 109.0 H (98-107) mmol/L Carbon Dioxide (22-30) mmol/L Anion Gap (10-20) BUN (9-20) mg/dL Creatinine (0.8-1.5) mg/dL Est GFR ( Amer) Est GFR (Non-Af Amer) POC Glucose (mg/dL) (65-110) mg/dL Random Glucose (75-110) mg/dL Calcium (8.6-10.4) mg/dl Phosphorus (2.5-4.5) mg/dL Magnesium (1.6-2.3) mg/dL Total Bilirubin (0.2-1.3) mg/dL AST (17-59) U/L ALT (21-72) U/L Alkaline Phosphatase (38-126) U/L Troponin I (0.00-0.120) ng/mL NT-Pro-B Natriuret Pep (0-900) pg/mL Total Protein (6.3-8.3) g/dL Albumin (3.5-5.0) g/dL Globulin (2.2-3.9) gm/dL Albumin/Globulin Ratio (1.0-2.1) Procalcitonin (0.19-0.49) NG/ML Arterial Blood Potassium 2.4 L* (3.6-5.2) mmol/L Venous Blood Potassium 3.1 L (3.6-5.2) mmol/L Urine Color [place] (YELLOW) Urine Clarity Turbid (Clear) Urine pH 5.0 (5.0-8.0) Ur Specific [place] 1.016 (1.003-1.030) Urine Protein 2+ H (NEGATIVE) mg/dL Urine Glucose (UA) Normal (Normal) mg/dL Urine Ketones Negative (NEGATIVE) mg/dL Urine Blood 2+ H (NEGATIVE) Urine Nitrate Negative (NEGATIVE) Urine Bilirubin Negative (NEGATIVE) Urine Urobilinogen 4.0 (0.2-1.0) mg/dL Ur Leukocyte Esterase 3+ H (Negative) Juan/uL Urine WBC (Auto) 3035 H (0-5) /hpf Urine RBC (Auto) 17 H (0-3) /hpf Urine WBC Clumps (Auto) Many H (NONE) /hpf Ur Squamous Epith Cells 4 (0-5) /hpf Urine Bacteria Mod H (<OCC) Influenza Typ A,B (EIA) (NEGATIVE) 06/04/17 06/04/17 06/04/17 Range/Units 19:34 19:34 19:34 WBC 21.2 H D (4.8-10.8) K/uL RBC 3.05 L (4.40-5.90) Mil/uL Hgb 10.1 L D (12.0-18.0) g/dL Hct 29.8 L (35.0-51.0) % MCV 97.6 H (80.0-94.0) fL MCH 33.2 H (27.0-31.0) pg MCHC 34.0 (33.0-37.0) g/dL RDW 14.3 (11.5-14.5) % Plt Count 123 L (130-400) K/uL MPV 9.2 (7.2-11.7) fL Neut % (Auto) 97.1 H (50.0-75.0) % Lymph % (Auto) 1.8 L (20.0-40.0) % [place] % (Auto) 0.7 (0.0-10.0) % Eos % (Auto) 0.4 (0.0-4.0) % Baso % (Auto) 0.0 (0.0-2.0) % Neut # 20.6 H (1.8-7.0) K/uL Lymph # 0.4 L (1.0-4.3) K/uL [place] # 0.2 (0.0-0.8) K/uL Eos # 0.1 (0.0-0.7) K/uL Baso # 0.0 (0.0-0.2) K/uL Neutrophils % (Manual) 55 (50-75) % Band Neutrophils % 43 H* (0-2) % Lymphocytes % (Manual) 1 L (20-40) % Monocytes % (Manual) 1 (0-10) % Platelet Estimate Slightly decreased L (NORMAL) Hypochromasia (manual) Slight Poikilocytosis (manual Slight Anisocytosis (manual) Slight Microcytosis (manual) Slight PT 19.8 H (9.7-12.2) SECONDS INR 1.7 APTT 30 (21-34) SECONDS Puncture Site pCO2 (35-45) mm/Hg pO2 (80-100) mm/Hg HCO3 (21-28) mmol/L ABG pH (7.35-7.45) ABG Total CO2 (22-28) mmol/L ABG O2 Saturation (95-98) % ABG Base Excess (-2.0-3.0) mmol/L Tenz[place] Test ABG Potassium (3.6-5.2) mmol/L VBG pH (7.32-7.43) VBG pCO2 (40-60) mmHg VBG HCO3 mmol/L VBG Total CO2 (22-28) mmol/L VBG O2 Sat (Calc) (40-65) % VBG Base Excess (0.0-2.0) mmol/L VBG Potassium (3.6-5.2) mmol/L Glucose (75-110) mg/dl Lactate (0.7-2.1) mmol/L Liter Flow Blood Gas Comments Crit Value Called To Crit Value Called By Crit Value Read Back Blood Gas Notified Time Sodium 131 L (132-148) mmol/L Potassium 2.8 L (3.6-5.2) mmol/L Chloride 99 (98-107) mmol/L Carbon Dioxide 19 L (22-30) mmol/L Anion Gap 16 (10-20) BUN 28 H (9-20) mg/dL Creatinine 2.1 H (0.8-1.5) mg/dL Est GFR ( Amer) 39 Est GFR (Non-Af Amer) 32 POC Glucose (mg/dL) (65-110) mg/dL Random Glucose 89 (75-110) mg/dL Calcium 7.5 L (8.6-10.4) mg/dl Phosphorus 1.0 L* (2.5-4.5) mg/dL Magnesium 1.7 (1.6-2.3) mg/dL Total Bilirubin 3.7 H (0.2-1.3) mg/dL AST 49 (17-59) U/L ALT 30 (21-72) U/L Alkaline Phosphatase 180 H D (38-126) U/L Troponin I < 0.0120 (0.00-0.120) ng/mL NT-Pro-B Natriuret Pep 352 (0-900) pg/mL Total Protein 6.0 L (6.3-8.3) g/dL Albumin 2.3 L D (3.5-5.0) g/dL Globulin 3.7 (2.2-3.9) gm/dL Albumin/Globulin Ratio 0.6 L (1.0-2.1) Procalcitonin (0.19-0.49) NG/ML Arterial Blood Potassium (3.6-5.2) mmol/L Venous Blood Potassium (3.6-5.2) mmol/L Urine Color (YELLOW) Urine Clarity (Clear) Urine pH (5.0-8.0) Ur Specific [place] (1.003-1.030) Urine Protein (NEGATIVE) mg/dL Urine Glucose (UA) (Normal) mg/dL Urine Ketones (NEGATIVE) mg/dL Urine Blood (NEGATIVE) Urine Nitrate (NEGATIVE) Urine Bilirubin (NEGATIVE) Urine Urobilinogen (0.2-1.0) mg/dL Ur Leukocyte Esterase (Negative) Juan/uL Urine WBC (Auto) (0-5) /hpf Urine RBC (Auto) (0-3) /hpf Urine WBC Clumps (Auto) (NONE) /hpf Ur Squamous Epith Cells (0-5) /hpf Urine Bacteria (<OCC) Influenza Typ A,B (EIA) (NEGATIVE) 06/04/17 Range/Units 19:26 WBC (4.8-10.8) K/uL RBC (4.40-5.90) Mil/uL Hgb (12.0-18.0) g/dL Hct (35.0-51.0) % MCV (80.0-94.0) fL MCH (27.0-31.0) pg MCHC (33.0-37.0) g/dL RDW (11.5-14.5) % Plt Count (130-400) K/uL MPV (7.2-11.7) fL Neut % (Auto) (50.0-75.0) % Lymph % (Auto) (20.0-40.0) % [place] % (Auto) (0.0-10.0) % Eos % (Auto) (0.0-4.0) % Baso % (Auto) (0.0-2.0) % Neut # (1.8-7.0) K/uL Lymph # (1.0-4.3) K/uL [place] # (0.0-0.8) K/uL Eos # (0.0-0.7) K/uL Baso # (0.0-0.2) K/uL Neutrophils % (Manual) (50-75) % Band Neutrophils % (0-2) % Lymphocytes % (Manual) (20-40) % Monocytes % (Manual) (0-10) % Platelet Estimate (NORMAL) Hypochromasia (manual) Poikilocytosis (manual Anisocytosis (manual) Microcytosis (manual) PT (9.7-12.2) SECONDS INR APTT (21-34) SECONDS Puncture Site pCO2 (35-45) mm/Hg pO2 (80-100) mm/Hg HCO3 (21-28) mmol/L ABG pH (7.35-7.45) ABG Total CO2 (22-28) mmol/L ABG O2 Saturation (95-98) % ABG Base Excess (-2.0-3.0) mmol/L Tenz[place] Test ABG Potassium (3.6-5.2) mmol/L VBG pH (7.32-7.43) VBG pCO2 (40-60) mmHg VBG HCO3 mmol/L VBG Total CO2 (22-28) mmol/L VBG O2 Sat (Calc) (40-65) % VBG Base Excess (0.0-2.0) mmol/L VBG Potassium (3.6-5.2) mmol/L Glucose (75-110) mg/dl Lactate (0.7-2.1) mmol/L Liter Flow Blood Gas Comments Crit Value Called To Crit Value Called By Crit Value Read Back Blood Gas Notified Time Sodium (132-148) mmol/L Potassium (3.6-5.2) mmol/L Chloride (98-107) mmol/L Carbon Dioxide (22-30) mmol/L Anion Gap (10-20) BUN (9-20) mg/dL Creatinine (0.8-1.5) mg/dL Est GFR ( Amer) Est GFR (Non-Af Amer) POC Glucose (mg/dL) 95 (65-110) mg/dL Random Glucose (75-110) mg/dL Calcium (8.6-10.4) mg/dl Phosphorus (2.5-4.5) mg/dL Magnesium (1.6-2.3) mg/dL Total Bilirubin (0.2-1.3) mg/dL AST (17-59) U/L ALT (21-72) U/L Alkaline Phosphatase (38-126) U/L Troponin I (0.00-0.120) ng/mL NT-Pro-B Natriuret Pep (0-900) pg/mL Total Protein (6.3-8.3) g/dL Albumin (3.5-5.0) g/dL Globulin (2.2-3.9) gm/dL Albumin/Globulin Ratio (1.0-2.1) Procalcitonin (0.19-0.49) NG/ML Arterial Blood Potassium (3.6-5.2) mmol/L Venous Blood Potassium (3.6-5.2) mmol/L Urine Color (YELLOW) Urine Clarity (Clear) Urine pH (5.0-8.0) Ur Specific [place] (1.003-1.030) Urine Protein (NEGATIVE) mg/dL Urine Glucose (UA) (Normal) mg/dL Urine Ketones (NEGATIVE) mg/dL Urine Blood (NEGATIVE) Urine Nitrate (NEGATIVE) Urine Bilirubin (NEGATIVE) Urine Urobilinogen (0.2-1.0) mg/dL Ur Leukocyte Esterase (Negative) Juan/uL Urine WBC (Auto) (0-5) /hpf Urine RBC (Auto) (0-3) /hpf Urine WBC Clumps (Auto) (NONE) /hpf Ur Squamous Epith Cells (0-5) /hpf Urine Bacteria (<OCC) Influenza Typ A,B (EIA) (NEGATIVE) Laboratory Results - last 24 hr 06/04/17 06/04/17 06/04/17 19:26 19:34 19:34 WBC 21.2 H D RBC 3.05 L Hgb 10.1 L D Hct 29.8 L MCV 97.6 H MCH 33.2 H MCHC 34.0 RDW 14.3 Plt Count 123 L MPV 9.2 Neut % (Auto) 97.1 H Lymph % (Auto) 1.8 L [place] % (Auto) 0.7 Eos % (Auto) 0.4 Baso % (Auto) 0.0 Neut # 20.6 H Lymph # 0.4 L [place] # 0.2 Eos # 0.1 Baso # 0.0 Neutrophils % (Manual) 55 Band Neutrophils % 43 H* Lymphocytes % (Manual) 1 L Monocytes % (Manual) 1 Platelet Estimate Slightly decreased L Hypochromasia (manual) Slight Poikilocytosis (manual Slight Anisocytosis (manual) Slight Microcytosis (manual) Slight PT 19.8 H INR 1.7 APTT 30 Puncture Site pCO2 pO2 HCO3 ABG pH ABG Total CO2 ABG O2 Saturation ABG Base Excess Tenzin Test ABG Potassium VBG pH VBG pCO2 VBG HCO3 VBG Total CO2 VBG O2 Sat (Calc) VBG Base Excess VBG Potassium Glucose Lactate Liter Flow Blood Gas Comments Crit Value Called To Crit Value Called By Crit Value Read Back Blood Gas Notified Time Sodium Potassium Chloride Carbon Dioxide Anion Gap BUN Creatinine Est GFR ( Amer) Est GFR (Non-Af Amer) POC Glucose (mg/dL) 95 Random Glucose Calcium Phosphorus Magnesium Total Bilirubin AST ALT Alkaline Phosphatase Troponin I NT-Pro-B Natriuret Pep Total Protein Albumin Globulin Albumin/Globulin Ratio Procalcitonin Arterial Blood Potassium Venous Blood Potassium Urine Color Urine Clarity Urine pH Ur Specific [place] Urine Protein Urine Glucose (UA) Urine Ketones Urine Blood Urine Nitrate Urine Bilirubin Urine Urobilinogen Ur Leukocyte Esterase Urine WBC (Auto) Urine RBC (Auto) Urine WBC Clumps (Auto) Ur Squamous Epith Cells Urine Bacteria Influenza Typ A,B (EIA) 06/04/17 06/04/17 06/04/17 19:34 19:40 20:54 WBC RBC Hgb Hct MCV MCH MCHC RDW Plt Count MPV Neut % (Auto) Lymph % (Auto) [place] % (Auto) Eos % (Auto) Baso % (Auto) Neut # Lymph # [place] # Eos # Baso # Neutrophils % (Manual) Band Neutrophils % Lymphocytes % (Manual) Monocytes % (Manual) Platelet Estimate Hypochromasia (manual) Poikilocytosis (manual Anisocytosis (manual) Microcytosis (manual) PT INR APTT Puncture Site Rra pCO2 33 L pO2 42 L* HCO3 19.7 L ABG pH 7.36 ABG Total CO2 19.6 L ABG O2 Saturation 82.5 L ABG Base Excess -5.9 L Tenz[place] Test Pos ABG Potassium 2.4 L* VBG pH VBG pCO2 VBG HCO3 VBG Total CO2 VBG O2 Sat (Calc) VBG Base Excess VBG Potassium Glucose 81 Lactate 2.8 H Liter Flow 2.0 Blood Gas Comments Mixed abg Crit Value Called To Dr britton Crit Value Called By Juanito bolivar Crit Value Read Back Y Blood Gas Notified Time 1950 Sodium 131 L 138.0 Potassium 2.8 L Chloride 99 109.0 H Carbon Dioxide 19 L Anion Gap 16 BUN 28 H Creatinine 2.1 H Est GFR ( Amer) 39 Est GFR (Non-Af Amer) 32 POC Glucose (mg/dL) Random Glucose 89 Calcium 7.5 L Phosphorus 1.0 L* Magnesium 1.7 Total Bilirubin 3.7 H AST 49 ALT 30 Alkaline Phosphatase 180 H D Troponin I < 0.0120 NT-Pro-B Natriuret Pep 352 Total Protein 6.0 L Albumin 2.3 L D Globulin 3.7 Albumin/Globulin Ratio 0.6 L Procalcitonin Arterial Blood Potassium 2.4 L* Venous Blood Potassium Urine Color [place] Urine Clarity Turbid Urine pH 5.0 Ur Specific [place] 1.016 Urine Protein 2+ H Urine Glucose (UA) Normal Urine Ketones Negative Urine Blood 2+ H Urine Nitrate Negative Urine Bilirubin Negative Urine Urobilinogen 4.0 Ur Leukocyte Esterase 3+ H Urine WBC (Auto) 3035 H Urine RBC (Auto) 17 H Urine WBC Clumps (Auto) Many H Ur Squamous Epith Cells 4 Urine Bacteria Mod H Influenza Typ A,B (EIA) 06/04/17 06/04/17 06/05/17 22:10 Unknown 06:50 WBC RBC Hgb Hct MCV MCH MCHC RDW Plt Count MPV Neut % (Auto) Lymph % (Auto) [place] % (Auto) Eos % (Auto) Baso % (Auto) Neut # Lymph # [place] # Eos # Baso # Neutrophils % (Manual) Band Neutrophils % Lymphocytes % (Manual) Monocytes % (Manual) Platelet Estimate Hypochromasia (manual) Poikilocytosis (manual Anisocytosis (manual) Microcytosis (manual) PT INR APTT Puncture Site pCO2 pO2 49 HCO3 ABG pH ABG Total CO2 ABG O2 Saturation ABG Base Excess Tenz[place] Test ABG Potassium VBG pH 7.27 L VBG pCO2 35 L VBG HCO3 16.7 VBG Total CO2 17.2 L VBG O2 Sat (Calc) 86.8 H VBG Base Excess -9.9 L VBG Potassium 3.1 L Glucose 73 L Lactate 2.4 H Liter Flow Blood Gas Comments Crit Value Called To Crit Value Called By Crit Value Read Back Blood Gas Notified Time Sodium 141.0 Potassium Chloride 116.0 H Carbon Dioxide Anion Gap BUN Creatinine Est GFR ( Amer) Est GFR (Non-Af Amer) POC Glucose (mg/dL) Random Glucose Calcium Phosphorus Magnesium Total Bilirubin AST ALT Alkaline Phosphatase Troponin I NT-Pro-B Natriuret Pep Total Protein Albumin Globulin Albumin/Globulin Ratio Procalcitonin 32.79 H Arterial Blood Potassium Venous Blood Potassium 3.1 L Urine Color Urine Clarity Urine pH Ur Specific [place] Urine Protein Urine Glucose (UA) Urine Ketones Urine Blood Urine Nitrate Urine Bilirubin Urine Urobilinogen Ur Leukocyte Esterase Urine WBC (Auto) Urine RBC (Auto) Urine WBC Clumps (Auto) Ur Squamous Epith Cells Urine Bacteria Influenza Typ A,B (EIA) Negative for flu a/b 06/05/17 07:41 WBC RBC Hgb Hct MCV MCH MCHC RDW Plt Count MPV Neut % (Auto) Lymph % (Auto) [place] % (Auto) Eos % (Auto) Baso % (Auto) Neut # Lymph # [place] # Eos # Baso # Neutrophils % (Manual) Band Neutrophils % Lymphocytes % (Manual) Monocytes % (Manual) Platelet Estimate Hypochromasia (manual) Poikilocytosis (manual Anisocytosis (manual) Microcytosis (manual) PT INR APTT Puncture Site pCO2 pO2 HCO3 ABG pH ABG Total CO2 ABG O2 Saturation ABG Base Excess T[place] Test ABG Potassium VBG pH VBG pCO2 VBG HCO3 VBG Total CO2 VBG O2 Sat (Calc) VBG Base Excess VBG Potassium Glucose Lactate Liter Flow Blood Gas Comments Crit Value Called To Crit Value Called By Crit Value Read Back Blood Gas Notified Time Sodium 132 Potassium 4.3 Chloride 104 Carbon Dioxide 20 L Anion Gap 12 BUN 26 H Creatinine 1.8 H Est GFR ( Amer) 47 Est GFR (Non-Af Amer) 39 POC Glucose (mg/dL) Random Glucose 90 Calcium 6.9 L Phosphorus 4.5 Magnesium 1.4 L Total Bilirubin 4.2 H AST 74 H D ALT 39 Alkaline Phosphatase 125 Troponin I NT-Pro-B Natriuret Pep Total Protein 5.8 L Albumin 2.2 L Globulin 3.6 Albumin/Globulin Ratio 0.6 L Procalcitonin Arterial Blood Potassium Venous Blood Potassium Urine Color Urine Clarity Urine pH Ur Specific Golden Urine Protein Urine Glucose (UA) Urine Ketones Urine Blood Urine Nitrate Urine Bilirubin Urine Urobilinogen Ur Leukocyte Esterase Urine WBC (Auto) Urine RBC (Auto) Urine WBC Clumps (Auto) Ur Squamous Epith Cells Urine Bacteria Influenza Typ A,B (EIA) EKG/Cardiology Studies: Cardiology / EKG Studies 06/04/17 19:28 ELECTROCARDIOGRAM Stat Comment: Mode Of Transportation: Reason For Exam: Sepsis Patient Review of Systems - Constitutional Constitutional: absent: Fever, Chills, Weakness - EENT Eyes: absent: Blurred Vision, Change in Vision Ears: absent: Dizziness - Cardiovascular Cardiovascular: absent: Chest Pain, Lightheadedness, Palpitations - Respiratory Respiratory: Cough. absent: As Per HPI, Dyspnea, Dyspnea on Exertion - Gastrointestinal Gastrointestinal: absent: Abdominal Pain, Cramping, Nausea, Vomiting - Musculoskeletal Musculoskeletal: Back Pain - Neurological Neurological: absent: Dizziness, Headaches, Paresthesias - Psychiatric Psychiatric: Anxiety - Endocrine Endocrine: absent: Fatigue, Palpitations Critical Care Progress Note - Ventilator Checklist Head of Bed 30 Degrees: No Daily Sedation Vacation: No Daily Assessment of Readiness to Wean: No Daily Spontaneous Breathing Trial: No PUD Prophalyxis: Yes DVT Prophylaxis: Yes Assessment/Plan - Assessment and Plan (Free Text) Assessment: Patient is a 61 year old male with past medical history of HTN, asthma, ureteric calculi with h/o lithotripsy, BPH, tobacco abuse, ex alcohol abuse, chronic low back pain, who presented to the ED with fever, weakness, dizzy. Patient was found to be hypotensive and was given 5 liter IVF. Patient was found to be in early septic shock on admission, TLC was placed in anticipation for the need of vasopressors. Patient was admitted to the ICU. Today: Plan: Cytoscopy and Right stent insertion by Dr. Herman Plan: Neuro: Alert, awake and oriented. Cardio: Hx of HTN Pulm: Hx of Asthma Medication and management: * Pulmicort 0.5 mg INH RQ12H * Duonebs 3ml INH RQ6H GI: No acute issues Endo: No acute issues Renal: JD Management: * NS @ 150MLS/HR : Ureter calculi, Hx of ureter calculi and BPH Urologist, Dr. Herman---> Help appreciated CT chest/abdomen/pelvis (06/04/17): Moderate right-sided hydroureteronephrosis secondary to a 9 mm stone in the proximal right ureter. Management: * s/p cytoscopy and right ureter stent placement pod #0 ID: Sepsis; UTI leukocytosis and bandemia Urine culture: Gram negative gabino Management: * Meropenem 1gm IVPB Q12H * NS @ 150MLS/HR Prophylaxis measures: DVT: Heparin 5,000 units SC Q8H GI: Protonix 40mg PO daily <Armen Min - Last Filed: 06/05/17 20:48> CCU Objective - Vital Signs / Intake & Output Vital Signs (Last 4 hours): Vital Signs Temp Pulse Resp BP Pulse Ox 06/05/17 19:00 98 F 99 H 20 129/60 99 06/05/17 18:00 95 H 22 124/69 99 06/05/17 17:00 98.6 F 89 21 107/62 97 Intake and Output (Last 8hrs): Intake & Output 06/05/17 06/05/17 06/05/17 06:59 14:59 22:59 Intake Total 2791.5 1500 750 Output Total 600 1450 980 Balance 2191.5 50 -230 Weight 262 lb 5.601 oz Intake: IV 50 Intake, IV Amount 2311.5 1450 750 Left Proximal Port 750 750 Internal Jugular Left Wrist 2099 450 Right Hand 212.5 250 Oral 480 Output: Urine 600 1450 980 Urethral (Louie) 500 1450 980 Urine, Voided 100 Other: # Bowel Movements 1 1 - Medications Active Medications: Active Medications Generic Name Dose Route Start Last Admin Trade Name Freq PRN Reason Stop Dose Admin Albuterol/Ipratropium 3 ml 06/05/17 02:00 06/05/17 18:44 Duoneb 3 Mg/0.5 Mg (3 Ml) Ud INH 3 ml RQ6 PAM Administration Budesonide 0.5 mg 06/05/17 08:00 06/05/17 18:44 Pulmicort Respules INH 0.5 mg RQ12 PAM Administration Heparin Sodium (Porcine) 5,000 units 06/05/17 06:00 06/05/17 14:00 Heparin SC 5,000 units Q8 PAM Administration Meropenem 1 gm/ Sodium 100 mls @ 200 mls/hr 06/04/17 23:30 06/05/17 10:51 Chloride IVPB 200 mls/hr Q12H PAM Administration Sodium Chloride 1,000 mls @ 150 mls/hr 06/05/17 04:00 06/05/17 19:01 Sodium Chloride 0.9% IV 150 mls/hr .Q6H40M PAM Administration Pantoprazole Sodium 40 mg 06/05/17 10:00 06/05/17 16:11 Protonix Ec Tab PO 40 mg DAILY PAM Administration - Patient Studies Lab Studies: Microbiology Studies 06/04/17 Unknown Urine Culture - Preliminary Urine Gram Negative [place] Lab Studies 06/05/17 06/05/17 06/04/17 Range/Units 07:41 06:50 22:10 pO2 49 (30-55) mm/Hg VBG pH 7.27 L (7.32-7.43) VBG pCO2 35 L (40-60) mmHg VBG HCO3 16.7 mmol/L VBG Total CO2 17.2 L (22-28) mmol/L VBG O2 Sat (Calc) 86.8 H (40-65) % VBG Base Excess -9.9 L (0.0-2.0) mmol/L VBG Potassium 3.1 L (3.6-5.2) mmol/L Sodium 132 141.0 (132-148) mmol/l Chloride 104 116.0 H (98-107) mmol/L Glucose 73 L (75-110) mg/dl Lactate 2.4 H (0.7-2.1) mmol/L Potassium 4.3 (3.6-5.2) mmol/L Carbon Dioxide 20 L (22-30) mmol/L Anion Gap 12 (10-20) BUN 26 H (9-20) mg/dL Creatinine 1.8 H (0.8-1.5) mg/dL Est GFR ( Amer) 47 Est GFR (Non-Af Amer) 39 Random Glucose 90 (75-110) mg/dL Calcium 6.9 L (8.6-10.4) mg/dl Phosphorus 4.5 (2.5-4.5) mg/dL Magnesium 1.4 L (1.6-2.3) mg/dL Total Bilirubin 4.2 H (0.2-1.3) mg/dL AST 74 H D (17-59) U/L ALT 39 (21-72) U/L Alkaline Phosphatase 125 (38-126) U/L Total Protein 5.8 L (6.3-8.3) g/dL Albumin 2.2 L (3.5-5.0) g/dL Globulin 3.6 (2.2-3.9) gm/dL Albumin/Globulin Ratio 0.6 L (1.0-2.1) Procalcitonin 32.79 H (0.19-0.49) NG/ML Venous Blood Potassium 3.1 L (3.6-5.2) mmol/L Urine Color (YELLOW) Urine Clarity (Clear) Urine pH (5.0-8.0) Ur Specific Golden (1.003-1.030) Urine Protein (NEGATIVE) mg/dL Urine Glucose (UA) (Normal) mg/dL Urine Ketones (NEGATIVE) mg/dL Urine Blood (NEGATIVE) Urine Nitrate (NEGATIVE) Urine Bilirubin (NEGATIVE) Urine Urobilinogen (0.2-1.0) mg/dL Ur Leukocyte Esterase (Negative) Juan/uL Urine WBC (Auto) (0-5) /hpf Urine RBC (Auto) (0-3) /hpf Urine WBC Clumps (Auto) (NONE) /hpf Ur Squamous Epith Cells (0-5) /hpf Urine Bacteria (<OCC) 06/04/17 Range/Units 20:54 pO2 (30-55) mm/Hg VBG pH (7.32-7.43) VBG pCO2 (40-60) mmHg VBG HCO3 mmol/L VBG Total CO2 (22-28) mmol/L VBG O2 Sat (Calc) (40-65) % VBG Base Excess (0.0-2.0) mmol/L VBG Potassium (3.6-5.2) mmol/L Sodium (132-148) mmol/l Chloride (98-107) mmol/L Glucose (75-110) mg/dl Lactate (0.7-2.1) mmol/L Potassium (3.6-5.2) mmol/L Carbon Dioxide (22-30) mmol/L Anion Gap (10-20) BUN (9-20) mg/dL Creatinine (0.8-1.5) mg/dL Est GFR ( Amer) Est GFR (Non-Af Amer) Random Glucose (75-110) mg/dL Calcium (8.6-10.4) mg/dl Phosphorus (2.5-4.5) mg/dL Magnesium (1.6-2.3) mg/dL Total Bilirubin (0.2-1.3) mg/dL AST (17-59) U/L ALT (21-72) U/L Alkaline Phosphatase (38-126) U/L Total Protein (6.3-8.3) g/dL Albumin (3.5-5.0) g/dL Globulin (2.2-3.9) gm/dL Albumin/Globulin Ratio (1.0-2.1) Procalcitonin (0.19-0.49) NG/ML Venous Blood Potassium (3.6-5.2) mmol/L Urine Color Santa (YELLOW) Urine Clarity Turbid (Clear) Urine pH 5.0 (5.0-8.0) Ur Specific Golden 1.016 (1.003-1.030) Urine Protein 2+ H (NEGATIVE) mg/dL Urine Glucose (UA) Normal (Normal) mg/dL Urine Ketones Negative (NEGATIVE) mg/dL Urine Blood 2+ H (NEGATIVE) Urine Nitrate Negative (NEGATIVE) Urine Bilirubin Negative (NEGATIVE) Urine Urobilinogen 4.0 (0.2-1.0) mg/dL Ur Leukocyte Esterase 3+ H (Negative) Juan/uL Urine WBC (Auto) 3035 H (0-5) /hpf Urine RBC (Auto) 17 H (0-3) /hpf Urine WBC Clumps (Auto) Many H (NONE) /hpf Ur Squamous Epith Cells 4 (0-5) /hpf Urine Bacteria Mod H (<OCC) Laboratory Results - last 24 hr 06/04/17 06/04/17 06/05/17 20:54 22:10 06:50 pO2 49 VBG pH 7.27 L VBG pCO2 35 L VBG HCO3 16.7 VBG Total CO2 17.2 L VBG O2 Sat (Calc) 86.8 H VBG Base Excess -9.9 L VBG Potassium 3.1 L Sodium 141.0 Chloride 116.0 H Glucose 73 L Lactate 2.4 H Potassium Carbon Dioxide Anion Gap BUN Creatinine Est GFR ( Amer) Est GFR (Non-Af Amer) Random Glucose Calcium Phosphorus Magnesium Total Bilirubin AST ALT Alkaline Phosphatase Total Protein Albumin Globulin Albumin/Globulin Ratio Procalcitonin 32.79 H Venous Blood Potassium 3.1 L Urine Color Santa Urine Clarity Turbid Urine pH 5.0 Ur Specific Golden 1.016 Urine Protein 2+ H Urine Glucose (UA) Normal Urine Ketones Negative Urine Blood 2+ H Urine Nitrate Negative Urine Bilirubin Negative Urine Urobilinogen 4.0 Ur Leukocyte Esterase 3+ H Urine WBC (Auto) 3035 H Urine RBC (Auto) 17 H Urine WBC Clumps (Auto) Many H Ur Squamous Epith Cells 4 Urine Bacteria Mod H 06/05/17 07:41 pO2 VBG pH VBG pCO2 VBG HCO3 VBG Total CO2 VBG O2 Sat (Calc) VBG Base Excess VBG Potassium Sodium 132 Chloride 104 Glucose Lactate Potassium 4.3 Carbon Dioxide 20 L Anion Gap 12 BUN 26 H Creatinine 1.8 H Est GFR ( Amer) 47 Est GFR (Non-Af Amer) 39 Random Glucose 90 Calcium 6.9 L Phosphorus 4.5 Magnesium 1.4 L Total Bilirubin 4.2 H AST 74 H D ALT 39 Alkaline Phosphatase 125 Total Protein 5.8 L Albumin 2.2 L Globulin 3.6 Albumin/Globulin Ratio 0.6 L Procalcitonin Venous Blood Potassium Urine Color Urine Clarity Urine pH Ur Specific Golden Urine Protein Urine Glucose (UA) Urine Ketones Urine Blood Urine Nitrate Urine Bilirubin Urine Urobilinogen Ur Leukocyte Esterase Urine WBC (Auto) Urine RBC (Auto) Urine WBC Clumps (Auto) Ur Squamous Epith Cells Urine Bacteria Critical Care Progress Note - Nutrition Nutrition: Nutrition Category Date Time Status Regular Diet [DIET] Diets 06/05/17 Lunch Active Attending/Attestation - Attestation I have personally seen and examined this patient.: Yes I have fully participated in the care of the patient.: Yes I have reviewed all pertinent clinical information: Yes Notes (Text): 06/05/17 20:47 I have seen and examined the patient. Medical records, lab studies, and imaging were reviewed by me and a management plan was formulated on multidisciplinary rounds with resident Dr. Serna. I agree with their above documented assessment and plan. Patient underwent ureteral stent placement, with relief of obstruction. Sepsis improving, blood pressure improving. Continue current abx regimen. Critical Care Time 35 minutes. Multi-disciplinary rounds were performed with house staff, nursing, speech therapy, respiratory therapy, pharmacy and nutrition with integrated input from the primary team/attending and other consulting services. The documented time is cumulative and includes review of patient data/exams/labs/chart review and examination of the patient on rounds and throughout the day; time is exclusive of any procedures or teaching time.
[2017-06-05] MEDS ORDERED: Iohexol 240 (50 ml) ONE (13:43)
[2017-06-05] MEDS ORDERED: Lidocaine 2% Jelly (Uro-Jet) ONE (13:43)
--- NOTE | 2017-06-05 14:26 | RAD ---
PROCEDURE: Intraoperative Fluoroscopy. HISTORY: RIGHT KIDNEY STONE FINDINGS: Fluoroscopic assistance was provided for right nephroureteral stent insertion. Please refer to the operative report from
[2017-06-05] MEDS: Oxycodone/Acetaminophen 5/325 mg Tab PO PRN (20:59)
[2017-06-06] MEDS: Sodium Chloride 0.9% 1,000 ML IV SCH ×4 (01:00→21:00)
[2017-06-06] MEDS: Albuterol-Ipratrop 3 mg / 0.5 (3 ml) UD INH SCH ×4 (01:15→19:38)
[2017-06-06] MEDS: Oxycodone/Acetaminophen 5/325 mg Tab PO PRN ×3 (03:52→21:38)
[2017-06-06 06:37] LABS: BASO # 0.1 K/uL (0.0-0.2); BASO % 0.2 % (0.0-2.0); EOS # 0.3 K/uL (0.0-0.7); EOS % 1.1 % (0.0-4.0); HEMATOCRIT 31.1 % (35.0-51.0); LYMPH # 2.3 K/uL (1.0-4.3); LYMPH % 7.7 % (20.0-40.0); MEAN CELL VOLUME 99.2 fL (80.0-94.0); MEAN CORPUSCULAR HEMOGLOBIN 33.2 pg (27.0-31.0); MEAN CORPUSCULAR HGB CONC 33.4 g/dL (33.0-37.0); MEAN PLATELET VOLUME 9.2 fL (7.2-11.7); MONO # 1.4 K/uL (0.0-0.8); MONO % 4.8 % (0.0-10.0); PLATELET COUNT 127 K/uL (130-400); RED CELL DISTRIBUTION WIDTH 15.4 % (11.5-14.5); WHITE BLOOD COUNT 29.9 K/uL (4.8-10.8)
[2017-06-06 06:51] LABS: CHLORIDE 107 mmol/L (98-107); POTASSIUM 3.9 mmol/L (3.6-5.2); SODIUM 136 mmol/L (132-148)
[2017-06-06 06:53] LABS: ALB/GLOB RATIO 0.6 (1.0-2.1); AST/SGOT 63 U/L (17-59); BILIRUBIN,TOTAL 4.4 mg/dL (0.2-1.3); CARBON DIOXIDE 21 mmol/L (22-30); GFR AFRICAN-AMERICAN > 60; TOTAL PROTEIN 6.6 g/dL (6.3-8.3)
[2017-06-06 06:54] LABS: ALKALINE PHOSPHATASE 153 U/L (38-126); ALT/SGPT 47 U/L (21-72); BLOOD UREA NITROGEN 25 mg/dL (9-20); CALCIUM 7.6 mg/dl (8.6-10.4); GLUCOSE,RANDOM 78 mg/dL (75-110); MAGNESIUM 1.7 mg/dL (1.6-2.3); PHOSPHOROUS 4.5 mg/dL (2.5-4.5)
[2017-06-06] MEDS: Budesonide 0.5 mg/2 ml Inhal Susp UD INH SCH ×2 (07:43→19:37)
[2017-06-06 09:15] LABS: EOSINOPHIL 2 % (0-4); NEUTROPHIL 67 % (50-75); TOTAL CELLS COUNTED 100
[2017-06-06 09:17] LABS: LARGE PLATELETS PRESENT
[2017-06-06] MEDS: Pantoprazole 40 mg EC Tab PO SCH (09:31)
[2017-06-06] MEDS: Meropenem 1 GM in Sodium Chloride 0.9% 100 ML IVPB SCH ×2 (11:20)
[2017-06-06 12:47] LABS: ARTERIAL BLOOD HGB O2 SAT 92.6 % (95.0-98.0); CARBOXYHEMOGLOBIN 2.4 % (0.5-1.5); DRAW SITE L/B; HHB 4.3 % (0.0-5.0); METHEMOGLOBIN 0.6 % (0.0-3.0)
--- NOTE | 2017-06-06 19:43 | PCM.PROC ---
Procedures Attestation:: I certify that I have explained the specified Operation(s) or Procedure(s), risks, benefits and reasonable alternatives to the Patient and/or other person responsible. The opportunity was given to ask questions and all questions answered - Central Line Placement Left Internal Jugular Aseptic technique was employed throughout the procedure: Hand Hygiene done prior to procedure, Full sterile barriers (mask, hair cover, sterile gown, sterile gloves), Full body sterile drape, Chloraprep Antiseptic: 30 second prep for IJ or SC sites CVP Time Out Performed: Yes Pt. Placed on Pulse Ox Monitor: Yes Central Line Prep: Chlorhexidine-Alcohol Combination Local Anesthesia Used: Lidocaine 1% (2.5 ml) Ultrasound Used for Placement: Yes Central Line Lumen Inserted: triple Central Line Length: 16 cm Post Procedure: Sutured in Place, Good Blood Return, All Ports Aspirated, Flushed, Capped, Sterile Dressing Applied Secured by: Suture Post procedure dressing: Clear vapor permeable, Chlorhexidine disc (Biopatch) Post Procedure X-Ray: Yes Patient Tolerated Procedure: Well Immediate Complications: None Additional Comments: Consent taken from patient and daughter present, on CXR tip of the line noticed in SVC, procedure as patient was in shock form sepsis form obstructing right ureteric calculus.
--- NOTE | 2017-06-06 20:35 | CARD ---
APPROVED REPORT EXAM: Two-dimensional and M-mode echocardiogram with Doppler and color Doppler. Other Information Quality : Rhythm : NSR INDICATION TDS, ALCOHOL INTOXICATION, SEPSIS HYPOTENSION, WHEEZING, HYPOKALEMIA, ABCESS M-Mode DIMENSIONS RVDd1.56 (2.1-3.2cm)Left Atrium (MM)5.12 (2.5-4.0cm) IVSd0.86 (0.7-1.1cm)Aortic Root3.12 (2.2-3.7cm) LVDd5.97 (4.0-5.6cm)Aortic Cusp Exc.1.34 (1.5-2.0cm) PWd1.13 (0.7-1.1cm)FS (%) 41 % LVDs3.51 (2.0-3.8cm)LVEF (%)71 (>50%) Mitral Valve MV E Xwabqrdk12.4cm/sMV A Whoxsehb999.0cm/sE/A ratio0.8 TDI E/Lateral E'0.0E/Medial E'0.0 Tricuspid Valve TR Peak Swvvmwna246kb/sTR Peak Gr.[id number] <Conclusion> SUBOPTIMAL STUDY VLAVES ARE NOT WELL VISUALIZED , OBTAIN DAVID IF CLINICALLY REQUIRED NORMAL LV EF
[2017-06-07] MEDS: Oxycodone/Acetaminophen 5/325 mg Tab PO PRN ×3 (01:38→21:24)
[2017-06-07] MEDS: Sodium Chloride 0.9% 1,000 ML IV SCH ×4 (02:00→22:37)
[2017-06-07] MEDS: Albuterol-Ipratrop 3 mg / 0.5 (3 ml) UD INH SCH ×4 (02:39→19:19)
[2017-06-07 07:00] LABS: BASO # 0.1 K/uL (0.0-0.2); BASO % 0.8 % (0.0-2.0); EOS # 0.4 K/uL (0.0-0.7); EOS % 2.3 % (0.0-4.0); HEMATOCRIT 31.6 % (35.0-51.0); LYMPH # 2.4 K/uL (1.0-4.3); LYMPH % 14.1 % (20.0-40.0); MEAN CELL VOLUME 99.7 fL (80.0-94.0); MEAN CORPUSCULAR HEMOGLOBIN 33.2 pg (27.0-31.0); MEAN CORPUSCULAR HGB CONC 33.3 g/dL (33.0-37.0); MONO # 1.3 K/uL (0.0-0.8); MONO % 7.5 % (0.0-10.0); NRBC % 0.1 % (0.0-2.0); RED CELL DISTRIBUTION WIDTH 15.8 % (11.5-14.5)
[2017-06-07 07:10] LABS: CHLORIDE 108 mmol/L (98-107); POTASSIUM 4.3 mmol/L (3.6-5.2); SODIUM 135 mmol/L (132-148)
[2017-06-07 07:12] LABS: CARBON DIOXIDE 20 mmol/L (22-30); GFR AFRICAN-AMERICAN > 60
[2017-06-07 07:13] LABS: ALB/GLOB RATIO 0.5 (1.0-2.1); ALKALINE PHOSPHATASE 161 U/L (38-126); ALT/SGPT 44 U/L (21-72); AST/SGOT 59 U/L (17-59); BLOOD UREA NITROGEN 23 mg/dL (9-20); CALCIUM 8.4 mg/dl (8.6-10.4); GLUCOSE,RANDOM 66 mg/dL (75-110); PHOSPHOROUS 4.4 mg/dL (2.5-4.5); TOTAL PROTEIN 6.6 g/dL (6.3-8.3)
[2017-06-07 07:14] LABS: MAGNESIUM 1.7 mg/dL (1.6-2.3)
[2017-06-07] MEDS: Budesonide 0.5 mg/2 ml Inhal Susp UD INH SCH ×2 (09:04→19:19)
[2017-06-07] MEDS: Meropenem 1 GM in Sodium Chloride 0.9% 100 ML IVPB SCH ×3 (10:41→22:31)
[2017-06-07] MEDS: Pantoprazole 40 mg EC Tab PO SCH (10:44)
[2017-06-08] MEDS: Albuterol-Ipratrop 3 mg / 0.5 (3 ml) UD INH SCH ×4 (01:56→19:33)
[2017-06-08] MEDS: Oxycodone/Acetaminophen 5/325 mg Tab PO PRN (02:38)
[2017-06-08] MEDS: Budesonide 0.5 mg/2 ml Inhal Susp UD INH SCH ×2 (08:23→19:33)
[2017-06-08 08:41] VITALS: RESP 20
--- NOTE | 2017-06-08 08:58 | HP ---
HISTORY OF PRESENT ILLNESS: Mr. Harley is a 61-year-old male admitted to the hospital with weakness, fatigue, tiredness, fever, renal obstruction. Patient came to the ER, ____ advised admission. PHYSICAL EXAMINATION: GENERAL: The patient is awake, alert and oriented. VITAL SIGNS: Temperature 98, pulse 97. HEENT: Within normal limits. NECK: Supple. CHEST: Symmetrical. HEART: Regular. ABDOMEN: Soft. EXTREMITIES: No edema. IMPRESSION AND PLAN: The patient with urosepsis, urinary obstruction. The patient on bed rest, supportive care and antibiotic. Urology consult. Minor Mancilla MD
[2017-06-08 11:06] LABS: BASO # 0.1 K/uL (0.0-0.2); EOS # 0.3 K/uL (0.0-0.7); EOS % 2.7 % (0.0-4.0); HEMATOCRIT 32.1 % (35.0-51.0); LYMPH # 2.1 K/uL (1.0-4.3); LYMPH % 19.7 % (20.0-40.0); MEAN CELL VOLUME 98.4 fL (80.0-94.0); MEAN CORPUSCULAR HEMOGLOBIN 33.9 pg (27.0-31.0); MEAN CORPUSCULAR HGB CONC 34.5 g/dL (33.0-37.0); MEAN PLATELET VOLUME 9.3 fL (7.2-11.7); MONO # 1.1 K/uL (0.0-0.8); MONO % 10.2 % (0.0-10.0); RED CELL DISTRIBUTION WIDTH 15.6 % (11.5-14.5); WHITE BLOOD COUNT 10.5 K/uL (4.8-10.8)
[2017-06-08 11:14] LABS: CHLORIDE 106 mmol/L (98-107); POTASSIUM 4.2 mmol/L (3.6-5.2); SODIUM 136 mmol/L (132-148)
[2017-06-08 11:16] LABS: GFR AFRICAN-AMERICAN > 60
[2017-06-08 11:17] LABS: ALB/GLOB RATIO 0.7 (1.0-2.1); ALKALINE PHOSPHATASE 210 U/L (38-126); ALT/SGPT 39 U/L (21-72); AST/SGOT 67 U/L (17-59); BILIRUBIN,TOTAL 3.6 mg/dL (0.2-1.3); BLOOD UREA NITROGEN 19 mg/dL (9-20); CALCIUM 8.4 mg/dl (8.6-10.4); CARBON DIOXIDE 23 mmol/L (22-30); GLUCOSE,RANDOM 84 mg/dL (75-110); MAGNESIUM 1.5 mg/dL (1.6-2.3); TOTAL PROTEIN 6.4 g/dL (6.3-8.3)
--- NOTE | 2017-06-08 11:20 | CP.PCM.CON ---
History of Present Illness - History of Present Illness History of Present Illness: 1 M with h/l HTN, asthma, ureteric calculi with h/o lithotripsy, BPH, tobacco abuse, ex alcohol abuse, chronic low back pain came to ER with c/o being sick x1 wk with fever, weakness, dizzy today, progressively getting worse. In ER was found hypotensive, needed about 5 lit of ivf, low in electrolytes K, mg, phos, JD noticed with creat 2.1, initial CXR fine, maintained spo2, hr in 100s, BP 100/60 range, c/o some chronic low back pain. Patient did c/o worsening asthma, fonud to be wheezing but maintaining spo2 in 97 on 2 lit nc. S/P cysto and stent Growing enterobacter in urine PMH as above PSH litho tirpsy Allergy moxifoxacin noticed in chart, but patient denied any allergies Meds noticed coreg,flomax, neb, chlolesterol meds Family history not contributory Social smokes 1PPD, drinks small amount few days a wk 1-2 drinks, denied any drugs Review of Systems - Review of Systems All systems: reviewed and no additional remarkable complaints except - Constitutional Constitutional: As Per HPI - EENT Eyes: absent: As Per HPI, Blind Spots, Blurred Vision, Change in Vision, Decreased Night Vision, Diplopia, Discharge, Dry Eye, Exophthalmos, Floaters, Irritation, Itchy Eyes, Loss of Peripheral Vision, Pain, Photophobia, Requires Corrective Lenses, Sees Flashes, Spots in Vision, Tunnel Vision, Other Visual Disturbances, Loss of Vision, Other Ears: absent: As Per HPI, Decreased Hearing, Ear Discharge, Ear Pain, Tinnitus, Abnormal Hearing, Disequilibrium, Dizziness, Other Nose/Mouth/Throat: absent: As Per HPI, Epistaxis, Nasal Congestion, Nasal Discharge, Nasal Obstruction, Nasal Trauma, Nose Pain, Post Nasal Drip, Sinus Pain, Sinus Pressure, Bleeding Gums, Change in Voice, Dental Pain, Dry Mouth, Dysphagia, Halitosis, Hoarsness, Lip Swelling, Mouth Lesions, Mouth Pain, Odynophagia, Sore Throat, Throat Swelling, Tongue Swelling, Facial Pain, Neck Pain, Neck Mass, Other - Cardiovascular Cardiovascular: absent: As Per HPI, Acrocyanosis, Chest Pain, Chest Pain at Rest , Chest Pain with Activity, Claudication, Diaphoresis, Dyspnea, Dyspnea on Exertion, Edema, Irregular Heart Rhythm, Pain Radiating to Arm/Neck/Jaw, Leg Edema, Leg Ulcers, Lightheadedness, Orthopnea, Palpitations, Paroxysmal Nocturnal Dyspnea, Pedal Edema, Radiating Pain, Rapid Heart Rate, Slow Heart Rate, Syncope, Other - Respiratory Respiratory: absent: As Per HPI, Cough, Dyspnea, Hemoptysis, Dyspnea on Exertion , Wheezing, Snoring, Stridor, Pain on Inspiration, Chest Congestion, Excessive Mucous Production, Change in Mucous Color, Pain with Coughing, Other - Gastrointestinal Gastrointestinal: absent: As Per HPI, Abdominal Pain, Belching, Bloating, Change in Bowel Habits, Change in Stool Character, Coffee Ground Emesis, Constipation, Cramping, Diarrhea, Dyspepsia, Dysphagia, Early Satiety, Excessive Flatus, Fecal Incontinence, Heartburn, Hematemesis, Hematochezia, Loose Stools, Melena, Nausea, Odynophagia, Temesmus, Vomiting, Other - Genitourinary Genitourinary: As Per HPI - Musculoskeletal Musculoskeletal: absent: As Per HPI, Abnormal Gait, Arthralgias, Atrophy, Back Pain, Deformity, Joint Swelling, Limited Range of Motion, Loss of Height, Muscle Cramps, Muscle Weakness, Myalgias, Neck Pain, Numbness, Radiating Pain into Limb, Stiffness, Tingling, Other - Integumentary Integumentary: absent: As Per HPI, Acne, Alopecia, Bleeding Lesions, Change in Hair, Change in Nails, Change in Pigmentation, Changing Lesions, Dry Skin, Erythema, Furuncle, Hirsutism, Lesions, New Lesions, Non-Healing Lesions, Photosensitivity, Pruritus, Rash, Skin Pain, Skin Ulcer, Sores, Striae, Swelling , Unusual Bruising, Wounds, Jaundice, Other - Neurological Neurological: absent: As Per HPI, Abnormal Gait, Abnormal Hearing, Abnormal Movements, Abnormal Speech, Behavioral Changes, Burning Sensations, Confusion, Convulsions, Disequilibrium, Dizziness, Numbness, Focal Weakness, Frequent Falls , Headaches, Lack of Coordination, Loss of Vision, Memory Loss, Paresthesias, Radicular Pain, Restless Legs, Sensory Deficit, Syncope, Tingling, Tremor, Vertigo, Weakness, Other Visual Disturbances, Other - Psychiatric Psychiatric: absent: As Per HPI, Abnormal Sleep Pattern, Anhedonia, Anxiety, Auditory Hallucinations, Behavioral Changes, Change in Appetite, Change in Libido, Confusion, Depression, Difficulty Concentrating, Hallucinations, Homicidal Ideation, Hopelessness, Irritability, Memory Loss, Mood Swings, Panic Attacks, Paranoia, Suicidal Ideation, Visual Hallucinations, Tactile Hallucinations, Other - Endocrine Endocrine: absent: As Per HPI, Change in Body Appearance, Change in Libido, Cold Intolorance, Deepening of Voice, Excessive Sweating, Fatigue, Flushing, Heat Intolorance, Increase in Ring/Shoe/Hat Size, Palpitations, Polydipsia, Polyphagia, Polyuria, Other Past Patient History - Infectious Disease Hx of Infectious Diseases: None - Past Medical History & Family History Past Medical History?: Yes - Past Social History Smoking Status: Heavy Smoker > 10 Cigarettes Daily Alcohol: < 2 Drinks/Day Drugs: Denies Home Situation {Lives}: With Family - CARDIAC Hx Hypercholesterolemia: Yes Hx Hypertension: Yes - PULMONARY Hx Asthma: Yes - NEUROLOGICAL HX Cerebrovascular Accident: No - HEENT Hx HEENT Problems: No - RENAL Hx Chronic Kidney Disease: No Hx Kidney Stones: Yes - ENDOCRINE/METABOLIC Hx Diabetes Mellitus Type 1: Yes - HEMATOLOGICAL/ONCOLOGICAL Hx Cancer: No - INTEGUMENTARY Hx Dermatological Problems: No Other/Comment: buttock abcess - MUSCULOSKELETAL/RHEUMATOLOGICAL Hx Musculoskeletal Disorders: Yes Hx Herniated Disk: Yes - GASTROINTESTINAL HX Swallowing Problems: No - GENITOURINARY/GYNECOLOGICAL Hx Prostate Problems: Yes - PSYCHIATRIC Hx Substance Use: No - SURGICAL HISTORY Hx Cholecystectomy: Yes - ANESTHESIA Hx Anesthesia: Yes Hx Anesthesia Reactions: No Meds Allergies/Adverse Reactions: Allergies Allergy/AdvReac Type Severity Reaction Status Date / Time moxifloxacin HCl Allergy Intermediate RASH Verified 06/04/17 18:50 [From Avelox] - Medications Medications: Current Medications Albuterol/Ipratropium (Duoneb 3 Mg/0.5 Mg (3 Ml) Ud) 3 ml INH RQ6 PAM Last Admin: 06/08/17 08:23 Dose: 3 ml Budesonide (Pulmicort Respules) 0.5 mg INH RQ12 PAM Last Admin: 06/08/17 08:23 Dose: 0.5 mg Heparin Sodium (Porcine) (Heparin) 5,000 units SC Q8 PAM Last Admin: 06/08/17 07:03 Dose: 5,000 units Meropenem 1 gm/ Sodium (Chloride) 100 mls @ 200 mls/hr IVPB Q12H PAM Last Admin: 06/07/17 22:31 Dose: 200 mls/hr Oxycodone/Acetaminophen (Percocet 5/325 Mg Tab) 1 tab PO Q4H PRN PRN Reason: Pain, moderate (4-7) Stop: 06/08/17 20:46 Last Admin: 06/08/17 02:38 Dose: 1 tab Pantoprazole Sodium (Protonix Ec Tab) 40 mg PO DAILY [facility] Last Admin: 06/07/17 10:44 Dose: 40 mg Physical Exam - Constitutional Appears: Non-toxic, Chronically Ill - Head Exam Head Exam: ATRAUMATIC, NORMAL INSPECTION, NORMOCEPHALIC - Eye Exam Eye Exam: PERRL. absent: Scleral icterus - ENT Exam ENT Exam: Mucous Membranes Dry, Normal External Ear Exam - Neck Exam Neck exam: Negative for: Lymphadenopathy, Thyromegaly - Respiratory Exam Respiratory Exam: Decreased Breath Sounds, Rhonchi - Cardiovascular Exam Cardiovascular Exam: REGULAR RHYTHM, +S1, +S2 - GI/Abdominal Exam GI & Abdominal Exam: Diminished Bowel Sounds, Soft. absent: Tenderness - Rectal Exam Rectal Exam: Deferred - Exam Exam: NORMAL INSPECTION - Extremities Exam Extremities exam: Positive for: pedal edema, pedal pulses present. Negative for : calf tenderness, tenderness - Back Exam Back exam: absent: CVA tenderness (L), CVA tenderness (R), paraspinal tenderness - Neurological Exam Neurological exam: Alert, CN II-XII Intact, Oriented x3, Reflexes Normal - Psychiatric Exam Psychiatric exam: Depressed - Skin Skin Exam: Dry Results - Vital Signs Recent Vital Signs: Last Vital Signs Temp 98.3 F 06/08/17 08:39 Pulse 78 06/08/17 08:39 Resp 20 06/08/17 08:39 BP 163/90 H 06/08/17 08:39 Pulse Ox 100 06/08/17 08:39 - Labs Result Diagrams: 06/08/17 10:53 06/07/17 06:57 Labs: Laboratory Results - last 24 hr 06/08/17 10:53 WBC 10.5 RBC 3.26 L Hgb 11.1 L Hct 32.1 L MCV 98.4 H MCH 33.9 H MCHC 34.5 RDW 15.6 H Plt Count 141 MPV 9.3 Neut % (Auto) 66.4 Lymph % (Auto) 19.7 L Sully % (Auto) 10.2 H Eos % (Auto) 2.7 Baso % (Auto) 1.0 Neut # 6.9 Lymph # 2.1 Sully # 1.1 H Eos # 0.3 Baso # 0.1 Assessment & Plan (1) Acute renal insufficiency Status: Acute (2) Hypokalemia Status: Acute (3) Hypotension Status: Acute (4) Sepsis due to urinary tract infection Status: Acute - Assessment and Plan (Free Text) Assessment: ? allergy to Cipro will restart Merrem ask lab for Tygacil sens
[2017-06-08] MEDS: Pantoprazole 40 mg EC Tab PO SCH (11:24)
[2017-06-08] MEDS ORDERED: Gentamicin 160 MG in Sodium Chloride 0.9% 100 ML IVPB ONE (12:30)
--- NOTE | 2017-06-08 12:46 | PCM.URO ---
Urology Progress Note - General General: Tolerating Diet - Subjective Abdominal Pain: No Flank Pain: No Hematuria: No Chest Pain: No Fever & Chills: No - Objective Lab Results Last 24 Hours: Laboratory Results - last 24 hr 06/08/17 06/08/17 10:53 10:53 WBC 10.5 RBC 3.26 L Hgb 11.1 L Hct 32.1 L MCV 98.4 H MCH 33.9 H MCHC 34.5 RDW 15.6 H Plt Count 141 MPV 9.3 Neut % (Auto) 66.4 Lymph % (Auto) 19.7 L [place] % (Auto) 10.2 H Eos % (Auto) 2.7 Baso % (Auto) 1.0 Neut # 6.9 Lymph # 2.1 [place] # 1.1 H Eos # 0.3 Baso # 0.1 Sodium 136 Potassium 4.2 Chloride 106 Carbon Dioxide 23 Anion Gap 12 BUN 19 Creatinine 1.1 Est GFR ( Amer) > 60 Est GFR (Non-Af Amer) > 60 Random Glucose 84 Calcium 8.4 L Phosphorus 3.0 Magnesium 1.5 L Total Bilirubin 3.6 H AST 67 H ALT 39 Alkaline Phosphatase 210 H D Total Protein 6.4 Albumin 2.7 L Globulin 3.7 Albumin/Globulin Ratio 0.7 L Intake & Output: Intake & Output 06/07/17 06/08/17 06/08/17 18:59 06:59 18:59 Intake Total 2300 1560 Output Total 1600 1400 Balance 700 160 Intake: Intake, IV Amount 1800 1200 Right Hand 1800 1200 Oral 500 360 Output: Urine 1600 1400 Urethral (Louie) 1600 1400 Stool 0 Other: # Bowel Movements 1 Vital Signs: Vital Signs - 24 hr 06/07/17 06/07/17 06/07/17 13:40 13:46 13:50 Temperature Pulse Rate 84 94 H 81 Respiratory 12 12 14 Rate Blood Pressure 140/81 O2 Sat by Pulse 100 100 99 Oximetry 06/07/17 06/07/17 06/07/17 14:00 14:02 14:10 Temperature Pulse Rate 80 104 H 83 Respiratory 14 13 11 L Rate Blood Pressure 142/90 O2 Sat by Pulse 98 91 L 100 Oximetry 06/07/17 06/07/17 06/07/17 14:17 14:20 14:30 Temperature Pulse Rate 77 79 84 Respiratory 11 L 12 18 Rate Blood Pressure 132/80 O2 Sat by Pulse 100 100 100 Oximetry 06/07/17 06/07/17 06/07/17 14:31 14:40 14:46 Temperature Pulse Rate 84 85 86 Respiratory 13 13 13 Rate Blood Pressure 127/76 115/69 O2 Sat by Pulse 100 100 100 Oximetry 06/07/17 06/07/17 06/07/17 14:50 15:00 15:02 Temperature Pulse Rate 88 85 89 Respiratory 12 12 13 Rate Blood Pressure 129/90 O2 Sat by Pulse 100 100 100 Oximetry 06/07/17 06/07/17 06/07/17 15:10 15:20 15:30 Temperature Pulse Rate 93 H 82 88 Respiratory 11 L 17 20 Rate Blood Pressure O2 Sat by Pulse 97 99 Oximetry 06/07/17 06/07/17 06/07/17 15:32 15:40 15:46 Temperature Pulse Rate 91 H 84 80 Respiratory 16 13 13 Rate Blood Pressure 144/87 149/87 O2 Sat by Pulse 98 100 98 Oximetry 06/07/17 06/07/17 06/07/17 15:50 16:00 16:01 Temperature 97.6 F Pulse Rate 89 87 75 Respiratory 16 15 12 Rate Blood Pressure 141/81 O2 Sat by Pulse 98 99 100 Oximetry 06/07/17 06/07/17 06/07/17 16:10 16:16 16:20 Temperature Pulse Rate 83 84 84 Respiratory 14 11 L 13 Rate Blood Pressure 161/83 H O2 Sat by Pulse 100 100 99 Oximetry 06/07/17 06/07/17 06/07/17 16:30 16:31 16:40 Temperature Pulse Rate 83 86 83 Respiratory 13 15 9 L Rate Blood Pressure 154/82 H O2 Sat by Pulse 100 99 98 Oximetry 06/07/17 06/07/17 06/07/17 16:46 16:50 17:00 Temperature Pulse Rate 92 H 92 H 88 Respiratory 14 18 13 Rate Blood Pressure 156/81 H O2 Sat by Pulse 98 98 99 Oximetry 06/07/17 06/07/17 06/07/17 17:01 17:10 17:16 Temperature Pulse Rate 89 86 88 Respiratory 15 15 12 Rate Blood Pressure 174/134 H 168/98 H O2 Sat by Pulse 99 98 97 Oximetry 06/07/17 06/07/17 06/07/17 17:17 17:50 18:00 Temperature Pulse Rate 89 89 Respiratory 13 Rate Blood Pressure O2 Sat by Pulse 98 98 Oximetry 06/07/17 06/07/17 06/07/17 18:01 18:10 18:16 Temperature Pulse Rate 85 79 85 Respiratory 15 17 14 Rate Blood Pressure 158/86 H 166/79 H O2 Sat by Pulse 96 100 100 Oximetry 06/07/17 06/07/17 06/07/17 18:20 18:30 18:31 Temperature Pulse Rate 92 H 90 86 Respiratory 18 18 16 Rate Blood Pressure 176/97 H O2 Sat by Pulse 100 100 100 Oximetry 06/07/17 06/07/17 06/07/17 18:40 18:46 18:50 Temperature Pulse Rate 83 89 87 Respiratory 16 20 15 Rate Blood Pressure 172/91 H O2 Sat by Pulse 100 100 100 Oximetry 06/07/17 06/07/17 06/07/17 18:51 19:00 19:01 Temperature Pulse Rate 83 90 91 H Respiratory 16 23 14 Rate Blood Pressure 176/91 H 158/83 H O2 Sat by Pulse 100 98 100 Oximetry 06/07/17 06/07/17 06/07/17 19:10 19:17 19:20 Temperature Pulse Rate 87 88 96 H Respiratory 18 12 14 Rate Blood Pressure 138/71 O2 Sat by Pulse 100 100 100 Oximetry 06/07/17 06/07/17 06/07/17 19:30 19:31 19:40 Temperature Pulse Rate 93 H 94 H 85 Respiratory 12 13 15 Rate Blood Pressure 137/69 O2 Sat by Pulse 100 100 99 Oximetry 06/07/17 06/07/17 06/07/17 19:46 19:50 20:00 Temperature 98.2 F Pulse Rate 94 H 83 84 Respiratory 14 13 15 Rate Blood Pressure 139/75 O2 Sat by Pulse 99 99 99 Oximetry 06/07/17 06/07/17 06/07/17 20:01 20:10 20:17 Temperature Pulse Rate 84 78 85 Respiratory 18 17 19 Rate Blood Pressure 139/76 170/81 H O2 Sat by Pulse 100 98 95 Oximetry 06/07/17 06/07/17 06/07/17 20:20 20:29 20:30 Temperature Pulse Rate 83 85 86 Respiratory 18 12 15 Rate Blood Pressure 172/142 H O2 Sat by Pulse 96 95 98 Oximetry 06/07/17 06/07/17 06/07/17 20:32 20:40 20:47 Temperature Pulse Rate 81 80 89 Respiratory 18 12 14 Rate Blood Pressure 168/89 H 190/68 H O2 Sat by Pulse 98 96 96 Oximetry 06/07/17 06/07/17 06/07/17 20:50 21:00 21:10 Temperature Pulse Rate 99 H 88 93 H Respiratory Rate Blood Pressure O2 Sat by Pulse 96 99 99 Oximetry 06/07/17 06/07/17 06/08/17 21:20 23:58 08:39 Temperature 99 F 98.3 F Pulse Rate 92 H 80 78 Respiratory 16 20 Rate Blood Pressure 124/67 163/90 H O2 Sat by Pulse 98 100 100 Oximetry - Physical Exam Abdominal Exam: Soft, Non-Tender. absent: Non-Distended Back: No CVA Tenderness Genitalia: Without Inflammation Urinary Catheter Draining Well: Yes Urine Color: Yellow - Male Phallus: Normal Scrotum: Normal - Plan Catheter Care: Yes Intake & Output: Yes Additional Information: Imp: stabe p cysto, stent insertion. P: Antibiotic rx. Add flomax. Trial of voiding t/f - Date & Time of Note Date: 06/08/17 Time: 12:46
--- NOTE | 2017-06-08 13:52 | OP ---
UROLOGY OPERATIVE REPORT PROCEDURE DATE: 06/05/2017 PREOPERATIVE DIAGNOSES: Voiding dysfunction, renal colic, sepsis, hydronephrosis, obstructing renal stone, hematuria and possible urinary retention. POSTOPERATIVE DIAGNOSES: Voiding dysfunction, renal colic, sepsis, hydronephrosis, obstructing renal stone, hematuria, possible urinary retention and hydronephrotic right kidney with obstruction from a right ureteral stone. PROCEDURE: Cystoscopy, retrograde pyelogram, and insertion of a right double J stent. COMPLICATIONS: There were no complications. BLOOD LOSS: Less than 10 mL. At the termination of the procedure, there was a double J stent. INDICATIONS FOR PROCEDURE: : See the history and physical and consultation, but in brief, this is a very pleasant gentleman who I know quite well. I had treated previously for stone disease, I have to check all my reports. We had treated him initially at [facility]. This was all left sided. He is now here for the right side. He presents with sepsis. He is in the Intensive Care Unit for management of his blood pressure. We discussed various options with the patient and the family and with the various physicians. The patient is in the ICU. We discussed with the market intelligence consultant as well as discussed with the Interventional Radiologist. Our recommendation was the above procedure. We will do some discussion about the percutaneous nephrostomy tube insertion, but after discussing options, risks, benefits of each procedure, he is now here for the above procedure. After discussing options, our recommendation is for a right double-J stent insertion, if this is unsuccessful, then we will consider percutaneous nephrostomy tube drainage. DESCRIPTION OF PROCEDURE: After obtaining informed consent, the patient was placed on the table, routine monitors were placed. The patient was brought to the OR, placed on the table carefully, monitors were very closely monitored given his ICU status. Our team transferred the patient from the stretcher to the bed, gently carefully. Monitors were placed, time-out was called. We confirmed the patient positioning. The patient is already on antibiotics. We now began the procedure as follows. The patient was in lithotomy position, positioning, time-out etc. Boat Puller film was performed. We introduced the cystoscope via the urethra. Anterior urethra, no strictures is visually occlusive. It is about 3 cm in length. Ureter was identified. Pictures were taken and saved. Retrograde pyelogram was then performed,quickly gently. Once we outlined the contrast to the kidney, we then inserted a central wire up to the kidney and then we inserted the double-J stent. The entire procedure was done with the camera and fluoroscopy imaging. We then inserted a Louie catheter via the urethra. Rectal exam shows a normal prostate, not boggy. Overall, the patient tolerated without complication. ADDENDUM: The patient tolerated this procedure well. We will continue ICU monitoring, but we will leave the obstruction. We will see how the patient does clinically. Further plans to follow. ADDENDUM #2: I had a chance to speak to his daughter, who has apparently her own house issues. I spoke to her before the procedure and I spoke to her after the procedure just to advise her all our intraoperative findings. Adams Herman MD
[2017-06-08] MEDS: Meropenem 1 GM in Sodium Chloride 0.9% 100 ML IVPB SCH ×2 (14:33→21:23)
--- NOTE | 2017-06-08 15:27 | CP.PCM.PN ---
Subjective - Date & Time of Evaluation Date of Evaluation: 06/08/17 Time of Evaluation: 15:20 - Subjective Subjective: Progress note. Service for Dr. Mancilla Pt seen and examined at bedside. No acute distress. Feeling much better. No fevers, chills, vomiting, diarrhea. ID consulted. Objective - Vital Signs/Intake and Output Vital Signs (last 24 hours): Temp Pulse Resp BP Pulse Ox 98.3 F 78 20 163/90 H 100 06/08/17 08:39 06/08/17 08:39 06/08/17 08:39 06/08/17 08:39 06/08/17 08:39 Intake and Output: 06/08/17 06/08/17 06:59 18:59 Intake Total 1560 Output Total 1400 Balance 160 - Medications Medications: Current Medications Albuterol/Ipratropium (Duoneb 3 Mg/0.5 Mg (3 Ml) Ud) 3 ml INH RQ6 [facility] Last Admin: 06/08/17 14:17 Dose: Not Given Budesonide (Pulmicort Respules) 0.5 mg INH RQ12 PAM Last Admin: 06/08/17 08:23 Dose: 0.5 mg Heparin Sodium (Porcine) (Heparin) 5,000 units SC Q8 [facility] Last Admin: 06/08/17 14:33 Dose: 5,000 units Meropenem 1 gm/ Sodium (Chloride) 100 mls @ 100 mls/hr IVPB Q8 [facility] Last Admin: 06/08/17 14:33 Dose: 100 mls/hr Oxycodone/Acetaminophen (Percocet 5/325 Mg Tab) 1 tab PO Q4H PRN PRN Reason: Pain, moderate (4-7) Stop: 06/08/17 20:46 Last Admin: 06/08/17 02:38 Dose: 1 tab Pantoprazole Sodium (Protonix Ec Tab) 40 mg PO DAILY [facility] Last Admin: 06/08/17 11:24 Dose: 40 mg Tamsulosin HCl (Flomax) 0.4 mg PO DAILY [facility] Last Admin: 06/08/17 14:32 Dose: 0.4 mg - Labs Labs: 06/08/17 10:53 06/08/17 10:53 PT 19.8 SECONDS (9.7-12.2) H 06/04/17 19:34 INR 1.7 06/04/17 19:34 APTT 30 SECONDS (21-34) 06/04/17 19:34 - Constitutional Appears: Non-toxic, No Acute Distress - Head Exam Head Exam: ATRAUMATIC, NORMAL INSPECTION, NORMOCEPHALIC - Eye Exam Eye Exam: EOMI - ENT Exam ENT Exam: Mucous Membranes Moist - Neck Exam Neck Exam: Full ROM - Respiratory Exam Respiratory Exam: NORMAL BREATHING PATTERN. absent: Respiratory Distress - Cardiovascular Exam Cardiovascular Exam: +S1, +S2 - GI/Abdominal Exam GI & Abdominal Exam: Soft, Normal Bowel Sounds. absent: Tenderness - Extremities Exam Extremities Exam: Full ROM, Normal Inspection - Neurological Exam Neurological Exam: Alert, Awake, Oriented x3 - Psychiatric Exam Psychiatric exam: Normal Affect, Normal Mood - Skin Skin Exam: Dry, Intact, Normal Color, Warm Assessment and Plan - Assessment and Plan (Free Text) Assessment: This is a 61 yo male with past medical hx of htn and asthma and BPH presenting with fever, weakness, dizziness 1. Urosepsis -s/p cystoscopy with stent -hydronephrosis improving -Virgil consulted. recs appreciated. -ID consulted. -on IV meropenem -urine growing enterobacter -percocet for pain -improving 2. hx of asthma -continue duonebs -continue pulmicort 3. hx of BPH -continue to monitor 4. hx of HTN -continue to monitor -echo shows normal EF of 71 percent 5 GI/DVT ppx -heparin 5000 q 8 -protonix [address] Mancilla
--- NOTE | 2017-06-08 16:02 | CON ---
UROLOGY CONSULTATION DATE: 06/05/2017 REASON FOR CONSULTATION: For management of urolithiasis. HISTORY OF PRESENT ILLNESS: Mr. Anurag Harley is a very pleasant gentleman who in retrospect I know. I recently received the phone call at about 2:[address] Montoya. Regarding recommendations to discuss with the patient options. The patient is in the ICU with difficulty managing his blood pressure. We discussed options by phone and the emergency of the situation. The patient was then subsequently resuscitated with fluids and ICU monitoring. He is not on any form of pressors and was started on antibiotic therapy. I had seen the patient for treatment of left-sided stones. The patient now presented with right ureteral stone with right hydronephrosis with an obstructing right side. The patient has also been apparently by his history not been feeling well for the last few days. Prior to presentation, not been eating well and feeling well. Now the patient is in the ICU. He currently have an indwelling Louie catheter. Says his urinary habits have not been much different. He is in baseline, irritative and obstructive complaints. After reviewing the CT scan, see below, the patient is seem to have hydronephrosis and see our recommendations and plans below. PAST MEDICAL AND SURGICAL HISTORY: Listed on the chart. The patient is under the care of Dr. Montoya currently. His medical doctor outpatient is Dr. Minor Mancilla. MEDICATIONS: See chart. Significantly, the patient is now on meropenem. SOCIAL HISTORY: Essentially otherwise unremarkable. No other history, but I have seen the patient previously. REVIEW OF SYSTEMS: As mentioned again, I had previously seen the patient quite sometime ago for treatment of stones. I have not seen him quite distant. PHYSICAL EXAMINATION GENERAL: Well developed, well nourished male. He is in some distress here. In the ICU, the monitoring are noted. VITAL SIGNS: Noted. The remainder of physical exam is difficult to evaluate secondary to body habitus. True CVA tenderness and she has Louie catheter indwelling. Rectal exam is deferred for now. LABORATORY DATA: See chart. White count, BUN and creatinine, etc. CT scan of the chest was reviewed. DIAGNOSES: Urolithiasis, hematuria, hydronephrosis, urosepsis, right ureteral stone with right hydronephrosis. At this point, we discussed options. I discussed them previously with Dr. Montoya. I also discussed them with the International Accountant today. I also discussed with Dr. Wakefield, Interventional Radiologist. I discussed with the daughter. I discussed risks, benefits, treatment and alternatives including percutaneous nephrostomy tube drainage including ureteral stenting and his recommendation is that the patient has stenting. We have tried to make arrangements as quickly as possible. As I spoke to the daughter again, canceling the office just to get here and explained that this is a lot most important, the patient now been resuscitated adequately. His blood pressure is back up and he is doing much better and he is currently off antibiotics. PLAN: 1. The patient in the OR now for cystoscopy and stent insertion. 2. Continue antibiotic prophylaxis. 3. Consider Infectious Disease consultation. 4. We will discuss further treatment of the stone once the patient no longer accept this, whether we do ESWL or ureteroscopy, laser lithotripsy. We discussed all his options (also further stone management will make a difference). Thank you for the urology consultation. Adams Herman MD
[2017-06-09] MEDS: Albuterol-Ipratrop 3 mg / 0.5 (3 ml) UD INH SCH ×4 (01:58→19:39)
[2017-06-09] MEDS: Meropenem 1 GM in Sodium Chloride 0.9% 100 ML IVPB SCH ×3 (05:45→22:18)
[2017-06-09] MEDS: Budesonide 0.5 mg/2 ml Inhal Susp UD INH SCH ×2 (08:06→19:39)
[2017-06-09] MEDS: Pantoprazole 40 mg EC Tab PO SCH (09:43)
--- NOTE | 2017-06-09 10:18 | CP.PCM.PN ---
Subjective - Date & Time of Evaluation Date of Evaluation: 06/09/17 Time of Evaluation: 07:45 - Subjective Subjective: PGY 2 Med Note- Dr. Mancilla's service Pt seen and examined in no acute distress. Patient was completely naked sitting at the edge of the bed. When asked why he was naked, patient said that he was having discomfort with his lua catheter interfering with his clothes. Patient wants lua removed. Patient lucid and able to answer questions. He denied chest pain, dyspnea, nausea, vomiting , subjective fevers or chills at this time. Objective - Vital Signs/Intake and Output Vital Signs (last 24 hours): Temp Pulse Resp BP Pulse Ox 97.8 F 86 20 174/83 H 97 06/09/17 08:00 06/09/17 08:00 06/09/17 08:00 06/09/17 08:00 06/09/17 08:00 Intake and Output: 06/09/17 06/09/17 06:59 18:59 Intake Total 890 Output Total 6100 Balance -5210 - Medications Medications: Current Medications Albuterol/Ipratropium (Duoneb 3 Mg/0.5 Mg (3 Ml) Ud) 3 ml INH RQ6 [facility] Last Admin: 06/09/17 08:06 Dose: 3 ml Amlodipine Besylate (Norvasc) 5 mg PO DAILY [facility]AM Last Admin: 06/09/17 09:43 Dose: 5 mg Budesonide (Pulmicort Respules) 0.5 mg INH RQ12 [facility] Last Admin: 06/09/17 08:06 Dose: 0.5 mg Heparin Sodium (Porcine) (Heparin) 5,000 units SC Q8 [facility] Last Admin: 06/09/17 05:43 Dose: 5,000 units Meropenem 1 gm/ Sodium (Chloride) 100 mls @ 100 mls/hr IVPB Q8 [facility] Last Admin: 06/09/17 05:45 Dose: 100 mls/hr Pantoprazole Sodium (Protonix Ec Tab) 40 mg PO DAILY [facility]AM Last Admin: 06/09/17 09:43 Dose: 40 mg Tamsulosin HCl (Flomax) 0.4 mg PO DAILY [facility]AM Last Admin: 06/09/17 09:43 Dose: 0.4 mg - Labs Labs: 06/08/17 10:53 06/08/17 10:53 PT 19.8 SECONDS (9.7-12.2) H 06/04/17 19:34 INR 1.7 06/04/17 19:34 APTT 30 SECONDS (21-34) 06/04/17 19:34 - Constitutional Appears: Non-toxic, No Acute Distress - Head Exam Head Exam: ATRAUMATIC - Eye Exam Eye Exam: EOMI, Normal appearance - ENT Exam ENT Exam: Mucous Membranes Moist - Neck Exam Neck Exam: Full ROM - Respiratory Exam Respiratory Exam: NORMAL BREATHING PATTERN. absent: Wheezes - Cardiovascular Exam Cardiovascular Exam: +S1, +S2 - GI/Abdominal Exam GI & Abdominal Exam: Soft, Normal Bowel Sounds - Exam Additional comments: lua in place - Extremities Exam Extremities Exam: Full ROM - Back Exam Back Exam: Full ROM - Skin Skin Exam: Normal Color, Warm Assessment and Plan - Assessment and Plan (Free Text) Assessment: Urosepsis -s/p cystoscopy with stent -hydronephrosis improving -Virgil consulted. Recommendations appreciated. Will need to discuss whether lua can be removed. reached out. Will have to contact again. -ID consulted. -on IV meropenem -percocet for pain -improving Hx of asthma -continue duonebs -continue pulmicort -on nc Hx of BPH -On Flomax daily -Continue to monitor Transaminitis -Mildly elevated. -Avoid tylenol or any other medications that may raise LFTs -Cont to monitor Hx of HTN -Echo shows normal EF of 71 percent. Refer to complete report -Continue to monitor Hypomagnesemia -Repleted. Cont to monitor GI/DVT ppx -Heparin 5000U q8 -Protonix 40 daily Discussed with attending. Management and planning per Dr. Mancilla
[2017-06-09] MEDS ORDERED: Magnesium Sulfate 1 gm in D5W 1 GM/100 ML BAG IVPB ONE (10:25)
[2017-06-09 10:47] LABS: BASO # 0.1 K/uL (0.0-0.2); BASO % 0.7 % (0.0-2.0); EOS # 0.2 K/uL (0.0-0.7); EOS % 2.2 % (0.0-4.0); HEMATOCRIT 31.5 % (35.0-51.0); LYMPH # 1.9 K/uL (1.0-4.3); LYMPH % 22.9 % (20.0-40.0); MEAN CORPUSCULAR HEMOGLOBIN 33.4 pg (27.0-31.0); MEAN CORPUSCULAR HGB CONC 34.7 g/dL (33.0-37.0); MEAN PLATELET VOLUME 9.1 fL (7.2-11.7); MONO % 11.5 % (0.0-10.0); NRBC % 0.1 % (0.0-2.0); RED CELL DISTRIBUTION WIDTH 15.1 % (11.5-14.5); WHITE BLOOD COUNT 8.3 K/uL (4.8-10.8)
[2017-06-09 10:55] LABS: CHLORIDE 101 mmol/L (98-107)
[2017-06-09 10:56] LABS: MEAN CELL VOLUME 96.4 fL (80.0-94.0); POTASSIUM 3.5 mmol/L (3.6-5.2); SODIUM 136 mmol/L (132-148)
[2017-06-09 10:58] LABS: ALB/GLOB RATIO 0.6 (1.0-2.1); ALKALINE PHOSPHATASE 194 U/L (38-126); ALT/SGPT 41 U/L (21-72); AST/SGOT 65 U/L (17-59); BILIRUBIN,TOTAL 3.5 mg/dL (0.2-1.3); BLOOD UREA NITROGEN 16 mg/dL (9-20); CARBON DIOXIDE 28 mmol/L (22-30); GFR AFRICAN-AMERICAN > 60
[2017-06-09 10:59] LABS: CALCIUM 8.6 mg/dl (8.6-10.4); GLUCOSE,RANDOM 120 mg/dL (75-110)
--- NOTE | 2017-06-09 11:37 | CP.PCM.PN ---
Subjective - Date & Time of Evaluation Date of Evaluation: 06/09/17 Time of Evaluation: 08:00 - Subjective Subjective: afeb wbc trending down no good PO alternative cont IV rx Objective - Vital Signs/Intake and Output Vital Signs (last 24 hours): Temp Pulse Resp BP Pulse Ox 97.8 F 86 20 174/83 H 97 06/09/17 08:00 06/09/17 08:00 06/09/17 08:00 06/09/17 08:00 06/09/17 08:00 Intake and Output: 06/09/17 06/09/17 06:59 18:59 Intake Total 890 Output Total 6100 Balance -5210 - Medications Medications: Current Medications Albuterol/Ipratropium (Duoneb 3 Mg/0.5 Mg (3 Ml) Ud) 3 ml INH RQ6 PAM Last Admin: 06/09/17 08:06 Dose: 3 ml Amlodipine Besylate (Norvasc) 5 mg PO DAILY [facility] Last Admin: 06/09/17 09:43 Dose: 5 mg Budesonide (Pulmicort Respules) 0.5 mg INH RQ12 PAM Last Admin: 06/09/17 08:06 Dose: 0.5 mg Heparin Sodium (Porcine) (Heparin) 5,000 units SC Q8 PAM Last Admin: 06/09/17 05:43 Dose: 5,000 units Meropenem 1 gm/ Sodium (Chloride) 100 mls @ 100 mls/hr IVPB Q8 PAM Last Admin: 06/09/17 05:45 Dose: 100 mls/hr Pantoprazole Sodium (Protonix Ec Tab) 40 mg PO DAILY [facility] Last Admin: 06/09/17 09:43 Dose: 40 mg Tamsulosin HCl (Flomax) 0.4 mg PO DAILY [facility]AM Last Admin: 06/09/17 09:43 Dose: 0.4 mg - Labs Labs: 06/09/17 10:35 06/09/17 10:35 PT 19.8 SECONDS (9.7-12.2) H 06/04/17 19:34 INR 1.7 06/04/17 19:34 APTT 30 SECONDS (21-34) 06/04/17 19:34 - Constitutional Appears: Chronically Ill - Head Exam Head Exam: NORMOCEPHALIC - Eye Exam Eye Exam: PERRL - ENT Exam ENT Exam: Mucous Membranes Dry - Neck Exam Neck Exam: absent: Lymphadenopathy - Respiratory Exam Respiratory Exam: Decreased Breath Sounds - Cardiovascular Exam Cardiovascular Exam: REGULAR RHYTHM - GI/Abdominal Exam GI & Abdominal Exam: Distended, Soft - Rectal Exam Rectal Exam: Deferred - Exam Exam: NORMAL INSPECTION - Extremities Exam Extremities Exam: absent: Pedal Edema - Back Exam Back Exam: absent: CVA tenderness (L), CVA tenderness (R) Assessment and Plan (1) Acute renal insufficiency Status: Acute (2) Hypokalemia Status: Acute (3) Hypotension Status: Acute (4) Sepsis due to urinary tract infection Status: Acute
--- NOTE | 2017-06-09 15:04 | PCM.URO ---
Urology Progress Note - Objective Lab Results Last 24 Hours: Laboratory Results - last 24 hr 06/09/17 06/09/17 10:35 10:35 WBC 8.3 RBC 3.27 L Hgb 10.9 L Hct 31.5 L MCV 96.4 H D MCH 33.4 H MCHC 34.7 RDW 15.1 H Plt Count 145 MPV 9.1 Neut % (Auto) 62.7 Lymph % (Auto) 22.9 [place] % (Auto) 11.5 H Eos % (Auto) 2.2 Baso % (Auto) 0.7 Neut # 5.2 Lymph # 1.9 [place] # 1.0 H Eos # 0.2 Baso # 0.1 Sodium 136 Potassium 3.5 L Chloride 101 Carbon Dioxide 28 Anion Gap 11 BUN 16 Creatinine 0.9 Est GFR ( Amer) > 60 Est GFR (Non-Af Amer) > 60 Random Glucose 120 H Calcium 8.6 Total Bilirubin 3.5 H AST 65 H ALT 41 Alkaline Phosphatase 194 H Total Protein 7.0 Albumin 2.5 L Globulin 4.5 H Albumin/Globulin Ratio 0.6 L Intake & Output: Intake & Output 06/08/17 06/09/17 06/09/17 18:59 06:59 18:59 Intake Total 600 890 700 Output Total 1800 6100 3200 Balance -2068 -0822 -2500 Intake: Intake, IV Amount 200 350 200 Right Hand 200 350 200 Oral 400 540 500 Output: Urine 1800 6100 3200 Urethral (Louie) 1800 6100 3200 Other: # Bowel Movements 0 1 2 Vital Signs: Vital Signs - 24 hr 06/08/17 06/08/17 06/08/17 16:40 22:26 23:22 Temperature 98.2 F Pulse Rate 84 81 Respiratory 20 Rate Blood Pressure 184/91 H 139/69 O2 Sat by Pulse 95 Oximetry 06/09/17 08:00 Temperature 97.8 F Pulse Rate 86 Respiratory 20 Rate Blood Pressure 174/83 H O2 Sat by Pulse 97 Oximetry
[2017-06-10] MEDS: Albuterol-Ipratrop 3 mg / 0.5 (3 ml) UD INH SCH ×4 (01:19→20:06)
[2017-06-10] MEDS: Meropenem 1 GM in Sodium Chloride 0.9% 100 ML IVPB SCH ×3 (05:21→22:00)
[2017-06-10 07:20] LABS: BASO # 0.1 K/uL (0.0-0.2); BASO % 0.6 % (0.0-2.0); EOS # 0.2 K/uL (0.0-0.7); EOS % 2.1 % (0.0-4.0); HEMATOCRIT 28.5 % (35.0-51.0); LYMPH # 2.6 K/uL (1.0-4.3); LYMPH % 24.3 % (20.0-40.0); MEAN CELL VOLUME 95.7 fL (80.0-94.0); MEAN CORPUSCULAR HEMOGLOBIN 33.8 pg (27.0-31.0); MEAN CORPUSCULAR HGB CONC 35.3 g/dL (33.0-37.0); MONO # 1.2 K/uL (0.0-0.8); MONO % 11.5 % (0.0-10.0); RED CELL DISTRIBUTION WIDTH 15.1 % (11.5-14.5); WHITE BLOOD COUNT 10.5 K/uL (4.8-10.8)
[2017-06-10] MEDS: Budesonide 0.5 mg/2 ml Inhal Susp UD INH SCH ×2 (07:29→20:06)
[2017-06-10 07:58] LABS: CHLORIDE 100 mmol/L (98-107)
[2017-06-10 07:59] LABS: POTASSIUM 3.2 mmol/L (3.6-5.2); SODIUM 136 mmol/L (132-148)
[2017-06-10 08:01] LABS: ALB/GLOB RATIO 0.5 (1.0-2.1); ALKALINE PHOSPHATASE 204 U/L (38-126); ALT/SGPT 40 U/L (21-72); AST/SGOT 74 U/L (17-59); BILIRUBIN,TOTAL 2.7 mg/dL (0.2-1.3); BLOOD UREA NITROGEN 14 mg/dL (9-20); CARBON DIOXIDE 29 mmol/L (22-30); GFR AFRICAN-AMERICAN > 60; TOTAL PROTEIN 6.7 g/dL (6.3-8.3)
[2017-06-10 08:02] LABS: CALCIUM 8.4 mg/dl (8.6-10.4); GLUCOSE,RANDOM 83 mg/dL (75-110); MAGNESIUM 1.4 mg/dL (1.6-2.3); PHOSPHOROUS 2.6 mg/dL (2.5-4.5)
[2017-06-10] MEDS: Pantoprazole 40 mg EC Tab PO SCH (09:48)
[2017-06-10] MEDS ORDERED: Potassium Chloride 20 mEq/15 ml LIQ UD PO ONE (11:15)
[2017-06-10] MEDS: Magnesium Sulfate 1 gm in D5W 1 GM/100 ML BAG IVPB SCH ×2 (11:17→12:15)
--- NOTE | 2017-06-10 13:15 | PN ---
DATE: 06/09/2017 See history and physical, consultation, and operative reports all previously dictated. SUBJECTIVE: The patient is now recovering well. He is currently resting with his daughter. He is requesting his Louie catheter to be removed. See the plans below. PAST MEDICAL AND SURGICAL HISTORY: No other changes. PHYSICAL EXAMINATION GENERAL: He is a well-developed, well-nourished male. He is awake, alert and oriented. GENITOURINARY: The Louie catheter is in place and draining clear urine. DIAGNOSES: Urolithiasis and sepsis, now getting resolved. Hydronephrosis, hematuria and voiding dysfunction. PLAN: The plan is as follows; from Urology standpoint, the patient is cleared for discharge. We are going to remove the Louie catheter now. Maintain the Flomax. Antibiotics will be as per ID. When he is cleared for surgery, we are going to plan for a shockwave lithotripsy for his stone or cystoscopy, ureteroscopy, laser lithotripsy. This will be done all as an outpatient. From Urology standpoint, he is cleared. Then, further plans to follow. No further treatments to clear medically and infectious disease islas. Further plans will follow. Discharge plans as per Dr. Mancilla. The patient is requesting with his daughter here about discharge in terms of taking care of his sickly . So, I will make further plans as follows and the timing of such, but explained in great detail that he has a stent in place and needs followup and we will try to do most of all work as outpatient, come and go same day surgery. Adams Herman MD
--- NOTE | 2017-06-10 15:55 | CP.PCM.PN ---
Subjective - Date & Time of Evaluation Date of Evaluation: 06/10/17 Time of Evaluation: 09:44 - Subjective Subjective: PGY 2 Med Note- Dr. Mancilla's service Pt seen and examined in no acute distress. Patient states that daughter was present earlier and had her questions addressed by Urologist Dr. Herman. Patient denies chest pain, subjective fevers or chills, nausea, vomiting or palpitations at this time. Objective - Vital Signs/Intake and Output Vital Signs (last 24 hours): Temp Pulse Resp BP Pulse Ox 98.1 F 87 20 162/77 H 96 06/10/17 15:53 06/10/17 15:53 06/10/17 15:53 06/10/17 15:53 06/10/17 15:53 Intake and Output: 06/10/17 06/10/17 06:59 18:59 Intake Total 300 Output Total 500 Balance 300 -500 - Medications Medications: Current Medications Albuterol/Ipratropium (Duoneb 3 Mg/0.5 Mg (3 Ml) Ud) 3 ml INH RQ6 PAM Last Admin: 06/10/17 13:35 Dose: 3 ml Amlodipine Besylate (Norvasc) 5 mg PO DAILY [facility] Last Admin: 06/10/17 09:48 Dose: 5 mg Budesonide (Pulmicort Respules) 0.5 mg INH RQ12 [facility] Last Admin: 06/10/17 07:29 Dose: 0.5 mg Heparin Sodium (Porcine) (Heparin) 5,000 units SC Q8 [facility] Last Admin: 06/10/17 14:06 Dose: 5,000 units Meropenem 1 gm/ Sodium (Chloride) 100 mls @ 100 mls/hr IVPB Q8 [facility] Last Admin: 06/10/17 14:03 Dose: 100 mls/hr Pantoprazole Sodium (Protonix Ec Tab) 40 mg PO DAILY [facility]AM Last Admin: 06/10/17 09:48 Dose: 40 mg Tamsulosin HCl (Flomax) 0.4 mg PO DAILY [facility] Last Admin: 06/10/17 09:48 Dose: 0.4 mg - Labs Labs: 06/10/17 07:06 06/10/17 07:06 PT 19.8 SECONDS (9.7-12.2) H 06/04/17 19:34 INR 1.7 06/04/17 19:34 APTT 30 SECONDS (21-34) 06/04/17 19:34 - Constitutional Appears: Non-toxic, No Acute Distress - Head Exam Head Exam: ATRAUMATIC, NORMAL INSPECTION, NORMOCEPHALIC - Eye Exam Eye Exam: EOMI, Normal appearance - ENT Exam ENT Exam: Mucous Membranes Moist - Neck Exam Neck Exam: Full ROM - Respiratory Exam Respiratory Exam: NORMAL BREATHING PATTERN. absent: Wheezes - Cardiovascular Exam Cardiovascular Exam: +S1, +S2, Murmur - GI/Abdominal Exam GI & Abdominal Exam: Soft, Normal Bowel Sounds - Extremities Exam Extremities Exam: Pedal Edema - Back Exam Back Exam: Full ROM - Neurological Exam Neurological Exam: Alert, Awake, Oriented x3 - Psychiatric Exam Psychiatric exam: Normal Affect, Normal Mood - Skin Skin Exam: Normal Color, Warm Assessment and Plan - Assessment and Plan (Free Text) Assessment: Sepsis secondary to UTI -s/p cystoscopy with stent -hydronephrosis improving -Virgil consulted. Recommendations appreciated. Louie removed. -ID consulted. -on IV meropenem for one more day tmrw. -percocet for pain -improving Hx of asthma -continue duonebs -continue pulmicort -on nc Hx of BPH -On Flomax daily -Continue to monitor Transaminitis -Mildly elevated. Stable -Avoid tylenol or any other medications that may raise LFTs -Cont to monitor Hx of HTN -Echo shows normal EF of 71 percent. Refer to complete report -Continue to monitor Hypomagnesemia -Repleted. Cont to monitor GI/DVT ppx -Heparin 5000U q8 -Protonix 40 daily Dispo: Will likely discharge tomorrow. Discharge instructions per Urology are in the physical chart. Discussed with attending. Management and planning per Dr. Mancilla
--- NOTE | 2017-06-10 17:08 | PCM.URO ---
Urology Progress Note - General General: No Complaints - Subjective Abdominal Pain: No Flank Pain: No Nausea: No Vomiting: No Voiding Well: Yes Hematuria: No Chest Pain: No Fever & Chills: No - Objective Lab Results Last 24 Hours: Laboratory Results - last 24 hr 06/10/17 06/10/17 07:06 07:06 WBC 10.5 RBC 2.98 L Hgb 10.1 L Hct 28.5 L MCV 95.7 H MCH 33.8 H MCHC 35.3 RDW 15.1 H Plt Count 157 MPV 9.0 Neut % (Auto) 61.5 Lymph % (Auto) 24.3 [place] % (Auto) 11.5 H Eos % (Auto) 2.1 Baso % (Auto) 0.6 Neut # 6.5 Lymph # 2.6 [place] # 1.2 H Eos # 0.2 Baso # 0.1 Sodium 136 Potassium 3.2 L Chloride 100 Carbon Dioxide 29 Anion Gap 10 BUN 14 Creatinine 0.8 Est GFR ( Amer) > 60 Est GFR (Non-Af Amer) > 60 Random Glucose 83 Calcium 8.4 L Phosphorus 2.6 Magnesium 1.4 L Total Bilirubin 2.7 H AST 74 H ALT 40 Alkaline Phosphatase 204 H Total Protein 6.7 Albumin 2.3 L Globulin 4.4 H Albumin/Globulin Ratio 0.5 L Intake & Output: Intake & Output 06/09/17 06/10/17 06/10/17 18:59 06:59 18:59 Intake Total 1350 300 660 Output Total 4000 500 Balance -2650 300 160 Intake: Intake, IV Amount 300 100 300 Right Hand 300 100 300 Oral 1050 200 360 Output: Urine 4000 500 Urethral (Louie) 4000 Urine, Voided 500 Other: # Voids Urine, Voided 1 3 # Bowel Movements 0 2 Vital Signs: Vital Signs - 24 hr 06/09/17 06/10/17 06/10/17 22:14 00:00 07:33 Temperature 98.0 F 98.2 F Pulse Rate 83 84 84 Respiratory 20 20 Rate Blood Pressure 143/69 139/69 O2 Sat by Pulse 96 95 Oximetry 06/10/17 06/10/17 12:00 15:53 Temperature 98.1 F Pulse Rate 90 87 Respiratory 20 Rate Blood Pressure 162/77 H O2 Sat by Pulse 95 96 Oximetry - Physical Exam Abdominal Exam: Soft, Non-Tender, Non-Distended Back: No CVA Tenderness Genitalia: Without Inflammation - Plan Additional Information: IMP: progressing well. Stable p catheter removal. Indwelling ureteral stent, to be managed after discharge. Discussed w pt. - Date & Time of Note Date: 06/10/17 Time: 17:08
--- NOTE | 2017-06-10 18:02 | CP.PCM.PN ---
Subjective - Date & Time of Evaluation Date of Evaluation: 06/10/17 Time of Evaluation: 10:00 - Subjective Subjective: stable on iv antibiotics w/o fever or pain stent in situ therefor hi risk for recurrence lua out will need careful follow up Objective - Vital Signs/Intake and Output Vital Signs (last 24 hours): Temp Pulse Resp BP Pulse Ox 98.1 F 87 20 162/77 H 96 06/10/17 15:53 06/10/17 15:53 06/10/17 15:53 06/10/17 15:53 06/10/17 15:53 Intake and Output: 06/10/17 06/10/17 06:59 18:59 Intake Total 300 660 Output Total 500 Balance 300 160 - Medications Medications: Current Medications Albuterol/Ipratropium (Duoneb 3 Mg/0.5 Mg (3 Ml) Ud) 3 ml INH RQ6 PAM Last Admin: 06/10/17 13:35 Dose: 3 ml Amlodipine Besylate (Norvasc) 5 mg PO DAILY [facility] Last Admin: 06/10/17 09:48 Dose: 5 mg Budesonide (Pulmicort Respules) 0.5 mg INH RQ12 PAM Last Admin: 06/10/17 07:29 Dose: 0.5 mg Heparin Sodium (Porcine) (Heparin) 5,000 units SC Q8 [facility] Last Admin: 06/10/17 14:06 Dose: 5,000 units Meropenem 1 gm/ Sodium (Chloride) 100 mls @ 100 mls/hr IVPB Q8 PAM Last Admin: 06/10/17 14:03 Dose: 100 mls/hr Pantoprazole Sodium (Protonix Ec Tab) 40 mg PO DAILY PAM Last Admin: 06/10/17 09:48 Dose: 40 mg Tamsulosin HCl (Flomax) 0.4 mg PO DAILY PAM Last Admin: 06/10/17 09:48 Dose: 0.4 mg - Labs Labs: 06/10/17 07:06 06/10/17 07:06 PT 19.8 SECONDS (9.7-12.2) H 06/04/17 19:34 INR 1.7 06/04/17 19:34 APTT 30 SECONDS (21-34) 06/04/17 19:34 - Constitutional Appears: Non-toxic - Head Exam Head Exam: NORMOCEPHALIC - Eye Exam Eye Exam: PERRL - ENT Exam ENT Exam: Mucous Membranes Dry - Neck Exam Neck Exam: absent: Lymphadenopathy - Respiratory Exam Respiratory Exam: Decreased Breath Sounds - Cardiovascular Exam Cardiovascular Exam: REGULAR RHYTHM - GI/Abdominal Exam GI & Abdominal Exam: Distended, Soft - Rectal Exam Rectal Exam: Deferred - Exam Exam: NORMAL INSPECTION - Extremities Exam Extremities Exam: absent: Pedal Edema - Back Exam Back Exam: absent: CVA tenderness (L), CVA tenderness (R), paraspinal tenderness - Neurological Exam Neurological Exam: Alert, Awake, Oriented x3 - Psychiatric Exam Psychiatric exam: Normal Mood - Skin Skin Exam: Dry Assessment and Plan (1) Acute renal insufficiency Status: Acute (2) Hypokalemia Status: Acute (3) Hypotension Status: Acute (4) Sepsis due to urinary tract infection Status: Acute - Assessment and Plan (Free Text) Assessment: cont iv antibiotics
[2017-06-11] MEDS: Albuterol-Ipratrop 3 mg / 0.5 (3 ml) UD INH SCH ×4 (01:20→19:32)
[2017-06-11] MEDS: Meropenem 1 GM in Sodium Chloride 0.9% 100 ML IVPB SCH (06:15)
[2017-06-11] MEDS: Budesonide 0.5 mg/2 ml Inhal Susp UD INH SCH ×2 (08:29→19:32)
[2017-06-11 09:36] LABS: BASO % 0.3 % (0.0-2.0); EOS # 0.3 K/uL (0.0-0.7); EOS % 3.1 % (0.0-4.0); HEMATOCRIT 31.1 % (35.0-51.0); LYMPH % 28.5 % (20.0-40.0); MEAN CORPUSCULAR HEMOGLOBIN 33.6 pg (27.0-31.0); MEAN CORPUSCULAR HGB CONC 34.7 g/dL (33.0-37.0); MEAN PLATELET VOLUME 9.1 fL (7.2-11.7); MONO % 9.5 % (0.0-10.0); NRBC % 0.2 % (0.0-2.0); RED CELL DISTRIBUTION WIDTH 15.1 % (11.5-14.5); WHITE BLOOD COUNT 10.4 K/uL (4.8-10.8)
[2017-06-11] MEDS: Pantoprazole 40 mg EC Tab PO SCH (09:37)
[2017-06-11 12:16] LABS: CHLORIDE 97 mmol/L (98-107); SODIUM 136 mmol/L (132-148)
[2017-06-11 12:17] LABS: POTASSIUM 3.4 mmol/L (3.6-5.2)
[2017-06-11 12:18] LABS: GFR AFRICAN-AMERICAN > 60
[2017-06-11 12:19] LABS: ALB/GLOB RATIO 0.7 (1.0-2.1); ALKALINE PHOSPHATASE 216 U/L (38-126); ALT/SGPT 44 U/L (21-72); AST/SGOT 85 U/L (17-59); BILIRUBIN,TOTAL 2.4 mg/dL (0.2-1.3); BLOOD UREA NITROGEN 14 mg/dL (9-20); CALCIUM 8.2 mg/dl (8.6-10.4); CARBON DIOXIDE 30 mmol/L (22-30); GLUCOSE,RANDOM 127 mg/dL (75-110); PHOSPHOROUS 2.6 mg/dL (2.5-4.5); TOTAL PROTEIN 6.4 g/dL (6.3-8.3)
[2017-06-11 12:20] LABS: MAGNESIUM 1.6 mg/dL (1.6-2.3)
--- NOTE | 2017-06-11 13:17 | CP.PCM.PN ---
Subjective - Date & Time of Evaluation Date of Evaluation: 06/11/17 Time of Evaluation: 13:15 - Subjective Subjective: Progress note. Attending: Dr. Mancilla Pt seen and examined at bedside. No acute distress. No events overnight. Still getting IV abx, improving. No fevers, chills, vomiting, diarrhea, cp, sob. Objective - Vital Signs/Intake and Output Vital Signs (last 24 hours): Temp Pulse Resp BP Pulse Ox 98.1 F 80 20 147/67 97 06/11/17 07:39 06/11/17 07:39 06/11/17 07:39 06/11/17 07:39 06/11/17 07:39 Intake and Output: 06/11/17 06/11/17 06:59 18:59 Intake Total 850 Output Total 600 Balance 250 - Medications Medications: Current Medications Albuterol/Ipratropium (Duoneb 3 Mg/0.5 Mg (3 Ml) Ud) 3 ml INH RQ6 PAM Last Admin: 06/11/17 08:30 Dose: 3 ml Amlodipine Besylate (Norvasc) 5 mg PO DAILY [facility] Last Admin: 06/11/17 09:37 Dose: 5 mg Budesonide (Pulmicort Respules) 0.5 mg INH RQ12 PAM Last Admin: 06/11/17 08:29 Dose: 0.5 mg Meropenem 1 gm/ Dextrose 100 mls @ 100 mls/hr IVPB Q8 PAM Pantoprazole Sodium (Protonix Ec Tab) 40 mg PO DAILY [facility] Last Admin: 06/11/17 09:37 Dose: 40 mg Potassium Chloride (K-Dur 20 Meq Er Tab) 20 meq PO ONCE ONE Stop: 06/11/17 12:58 Tamsulosin HCl (Flomax) 0.4 mg PO DAILY [facility] Last Admin: 06/11/17 09:37 Dose: 0.4 mg - Labs Labs: 06/11/17 09:30 06/11/17 11:44 PT 19.8 SECONDS (9.7-12.2) H 06/04/17 19:34 INR 1.7 06/04/17 19:34 APTT 30 SECONDS (21-34) 06/04/17 19:34 - Constitutional Appears: Non-toxic, No Acute Distress - Head Exam Head Exam: ATRAUMATIC, NORMAL INSPECTION, NORMOCEPHALIC - Eye Exam Eye Exam: EOMI - ENT Exam ENT Exam: Mucous Membranes Moist - Neck Exam Neck Exam: Normal Inspection - Respiratory Exam Respiratory Exam: NORMAL BREATHING PATTERN. absent: Respiratory Distress - Cardiovascular Exam Cardiovascular Exam: +S1, +S2 - GI/Abdominal Exam GI & Abdominal Exam: Distended. absent: Tenderness - Extremities Exam Extremities Exam: Full ROM, Normal Inspection - Neurological Exam Neurological Exam: Alert, Awake, Oriented x3 - Psychiatric Exam Psychiatric exam: Normal Affect, Normal Mood - Skin Skin Exam: Dry, Intact, Normal Color, Warm Assessment and Plan - Assessment and Plan (Free Text) Assessment: This is a 61 yo male with Sepsis secondary to UTI -s/p cystoscopy with stent -hydronephrosis improving -Virgil consulted. Recommendations appreciated. Louie removed. -ID consulted. -on IV meropenem for one more day tmrw. -percocet for pain -improving Hx of asthma -continue duonebs -continue pulmicort -on nc Hx of BPH -On Flomax daily -Continue to monitor Transaminitis -Mildly elevated. Stable -Avoid tylenol or any other medications that may raise LFTs -Cont to monitor Hx of HTN -Echo shows normal EF of 71 percent. Refer to complete report -Continue to monitor Hypomagnesemia -Repleted. Cont to monitor GI/DVT ppx -Heparin 5000U q8 -Protonix 40 daily Dispo: Will likely discharge tomorrow. Discharge instructions per Urology are in the physical chart. Discussed with attending. Management and planning per Dr. Mancilla
[2017-06-11] MEDS ORDERED: Potassium Chloride 20 mEq ER Tab PO ONE (13:30)
[2017-06-11] MEDS: Meropenem 1 GM in Dextrose 5% In Water 100 ML IVPB SCH ×2 (13:58→22:00)
[2017-06-11 23:32] VITALS: TEMP 98.1
[2017-06-12] MEDS: Albuterol-Ipratrop 3 mg / 0.5 (3 ml) UD INH SCH ×2 (01:30→07:35)
[2017-06-12] MEDS: Meropenem 1 GM in Dextrose 5% In Water 100 ML IVPB SCH (06:18)
[2017-06-12] MEDS: Budesonide 0.5 mg/2 ml Inhal Susp UD INH SCH (07:35)
[2017-06-12 08:43] VITALS: BP 149/89
[2017-06-12] MEDS: Pantoprazole 40 mg EC Tab PO SCH (09:46)
--- NOTE | 2017-06-12 12:03 | CP.PCM.PN ---
Subjective - Date & Time of Evaluation Date of Evaluation: 06/12/17 Time of Evaluation: 12:00 - Subjective Subjective: Progress note. Attending: Dr. Mancilla Pt seen and examined at bedside. No acute distress. No events overnight. Plan for discharge home today. No fevers, chills, vomiting, diarrhea. Objective - Vital Signs/Intake and Output Vital Signs (last 24 hours): Temp Pulse Resp BP Pulse Ox 98.1 F 85 20 149/89 97 06/12/17 08:00 06/12/17 08:00 06/12/17 08:00 06/12/17 08:00 06/12/17 08:00 Intake and Output: 06/12/17 06/12/17 06:59 18:59 Intake Total 800 300 Output Total 650 Balance 800 -350 - Medications Medications: Current Medications Albuterol/Ipratropium (Duoneb 3 Mg/0.5 Mg (3 Ml) Ud) 3 ml INH RQ6 PAM Last Admin: 06/12/17 07:35 Dose: 3 ml Amlodipine Besylate (Norvasc) 5 mg PO DAILY [facility] Last Admin: 06/12/17 09:46 Dose: 5 mg Budesonide (Pulmicort Respules) 0.5 mg INH RQ12 PAM Last Admin: 06/12/17 07:35 Dose: 0.5 mg Meropenem 1 gm/ Sodium (Chloride) 100 mls @ 100 mls/hr IVPB Q8 PAM Pantoprazole Sodium (Protonix Ec Tab) 40 mg PO DAILY [facility] Last Admin: 06/12/17 09:46 Dose: 40 mg Tamsulosin HCl (Flomax) 0.4 mg PO DAILY [facility] Last Admin: 06/12/17 09:46 Dose: 0.4 mg - Labs Labs: 06/11/17 09:30 06/11/17 11:44 PT 19.8 SECONDS (9.7-12.2) H 06/04/17 19:34 INR 1.7 06/04/17 19:34 APTT 30 SECONDS (21-34) 06/04/17 19:34 - Constitutional Appears: Non-toxic, No Acute Distress - Head Exam Head Exam: ATRAUMATIC, NORMAL INSPECTION, NORMOCEPHALIC - Eye Exam Eye Exam: EOMI - ENT Exam ENT Exam: Mucous Membranes Moist - Neck Exam Neck Exam: Full ROM, Normal Inspection - Respiratory Exam Respiratory Exam: NORMAL BREATHING PATTERN. absent: Respiratory Distress - Cardiovascular Exam Cardiovascular Exam: +S1, +S2 - GI/Abdominal Exam GI & Abdominal Exam: Distended - Extremities Exam Extremities Exam: Full ROM, Normal Inspection - Neurological Exam Neurological Exam: Alert, Awake, Oriented x3 - Psychiatric Exam Psychiatric exam: Normal Affect, Normal Mood - Skin Skin Exam: Dry, Intact, Normal Color, Warm Assessment and Plan - Assessment and Plan (Free Text) Assessment: This is a 61 yo male with Sepsis secondary to UTI -s/p cystoscopy with stent -hydronephrosis improving -Virgil consulted. Recommendations appreciated. Louie removed. -ID consulted. -finished course of IV meropenem -percocet for pain -improving Hx of asthma -continue duonebs -continue pulmicort -on nc Hx of BPH -On Flomax daily -Continue to monitor Transaminitis -Mildly elevated. Stable -Avoid tylenol or any other medications that may raise LFTs -Cont to monitor -likely component of fatty liver Hx of HTN -Echo shows normal EF of 71 percent. Refer to complete report -Continue to monitor Hypomagnesemia -Repleted. Cont to monitor GI/DVT ppx -Heparin 5000U q8 -Protonix 40 daily Dispo: Plan for discharge today. No home abx. Discussed with attending. Management and planning per Dr. Mancilla
[2017-06-12] MEDS ORDERED: Meropenem 1 GM in Sodium Chloride 0.9% 100 ML IVPB SCH (14:00)
[2017-06-12 15:47] VITALS: PULSE 75; O2SAT 98
--- NOTE | 2017-06-19 09:34 | DS ---
The patient has chief complaint of nausea, vomiting, and weakness. The patient has suffers gastroparesis, gastritis, and marijuana abuse. The patient needs bedrest, supportive care. Minor Mancilla MD
== END 2017-06-12 13:14 | disposition home or self-care (01) | DRG 901 ==
LOC: C.ER 18:33 → C.9I 22:18 → C.3T 06-07 21:42
PROVIDERS: ADMIT Internal Medicine Pulmonary Disease; ATTEND Internal Medicine Pulmonary Disease
PROC: 0T768DZ Dilation of Right Ureter with Intraluminal Device, Via Natural or Artificial Opening Endoscopic (ICD-10-PCS; principal; 2017-06-05 10:00)
PROC: 02HV33Z Insertion of Infusion Device into Superior Vena Cava, Percutaneous Approach (ICD-10-PCS; 2017-06-06)
PROC: B548ZZA Ultrasonography of Superior Vena Cava, Guidance (ICD-10-PCS; 2017-06-06)
DX: A41.9 Sepsis, unspecified organism (principal); N13.2 Hydronephrosis with renal and ureteral calculous obstruction; K31.84 Gastroparesis; Z68.41 Body mass index [BMI] 40.0-44.9, adult; E11.43 Type 2 diabetes mellitus with diabetic autonomic (poly)neuropathy; E87.6 Hypokalemia; N39.0 Urinary tract infection, site not specified; I10 Essential (primary) hypertension; E83.42 Hypomagnesemia; G89.29 Other chronic pain; J45.909 Unspecified asthma, uncomplicated; N40.0 Benign prostatic hyperplasia without lower urinary tract symptoms; Z79.4 Long term (current) use of insulin; Z87.891 Personal history of nicotine dependence; F12.10 Cannabis abuse, uncomplicated; K29.70 Gastritis, unspecified, without bleeding

== ENCOUNTER 2017-07-17 06:48 | Day surgery (SDC) | payer MEDICAID ==
[2017-07-17 06:48] VITALS: BMI 37.0
--- NOTE | 2017-07-17 07:11 | C.PDOC ---
History Of Present Illness Patient sent in by Dr. Otero due to Right renal stone with pain Chief Complaint (Nursing): Medical Clearance History Per: Patient History/Exam Limitations: no limitations Onset/Duration Of Symptoms: Days Current Symptoms Are (Timing): Still Present Severity: Moderate Pain Scale Rating Of: 6 Location Of Discomfort (Image): 1 - Right flank area pain. Reports Recently: Treated By A Physician Recent travel outside of the [place]: No Additional History Per: Patient Past Medical History Vital Signs: Last Vital Signs Temp 98 F 07/17/17 06:59 Pulse 84 07/17/17 06:59 Resp 14 07/17/17 06:59 BP 163/89 H 07/17/17 06:59 Pulse Ox 96 07/17/17 07:16 - Medical History PMH: Asthma, CHF, HTN, Hypercholesterolemia, Kidney Stones Denies: Chronic Kidney Disease Comment Only: Back Problems (Herniated disc) Surgical History: Cholecystectomy - [facility] Procedures ALCOHOL DETOXIFICATION (06/26/13) CLOSED ENDOSCOPIC BIOPSY OF LARGE INTESTINE (08/30/13) DILATION OF RIGHT URETER WITH INTRALUMINAL DEVICE, ENDO (06/04/17) INSERTION OF INFUSION DEV INTO SUP VENA CAVA, PERC APPROACH (06/04/17) NAIL REMOVAL (02/02/13) ULTRASONOGRAPHY OF SUPERIOR VENA CAVA, GUIDANCE (06/04/17) Family History: States: Unknown Family Hx - Social History Hx Tobacco Use: Yes Hx Alcohol Use: Yes (detox 2012) Hx Substance Use: No - Immunization History Hx Tetanus Toxoid Vaccination: Yes Hx Influenza Vaccination: Yes Hx Pneumococcal Vaccination: Yes Review Of Systems Constitutional: Negative for: Fever, Chills, Sweats Cardiovascular: Negative for: Chest Pain, Palpitations, Orthopnea Respiratory: Negative for: Cough, Shortness of Breath, Hemoptysis, SOB with Excertion Gastrointestinal: Negative for: Nausea, Vomiting, Abdominal Pain, Diarrhea Genitourinary: Positive for: Other (Right flank area pain). Negative for: Dysuria, Frequency, Incontinence, Hematuria Skin: Negative for: Rash Neurological: Negative for: Weakness, Numbness, Incoordination, Change in Speech , Confusion Psych: Negative for: Anxiety, Depression Physical Exam - Physical Exam Appears: Non-toxic Skin: Normal Color Eye(s): bilateral: Normal Inspection, PERRL, EOMI Nose: Normal Throat: Normal Neck: Normal Chest: Symmetrical, No Deformity, No Tenderness Cardiovascular: Rhythm Regular, No Edema Respiratory: Normal Breath Sounds Gastrointestinal/Abdominal: Normal Exam Back: Other (Rifht flank tenderness) Male Genital: Normal Inspection Extremity: Normal ROM Extremity: Bilateral: Atraumatic ED Course And Treatment O2 Sat by Pulse Oximetry: 96 Disposition Discussed With DrJuan: Luigi Herman Doctor Will See Patient In The: Hospital Counseled Patient/Family Regarding: Diagnosis - Disposition Disposition: HOSPITALIZED Disposition Time: 07:16 Condition: STABLE Forms: [facility] (French) - POA Present On Arrival: None - Clinical Impression Clinical Impression: Right kidney stone
[2017-07-17] MEDS ORDERED: Lidocaine 2% Jelly (Uro-Jet) ONE (07:33)
[2017-07-17] MEDS ORDERED: cefTRIAXone IV 1 gm in Dextros 50 ML IVPB ONE (07:33)
[2017-07-17] MEDS ORDERED: Iohexol 240 (50 ml) ONE (07:42)
[2017-07-17 08:01] LABS: BASO # 0.1 K/uL (0.0-0.2); EOS # 0.8 K/uL (0.0-0.7); EOS % 7.8 % (0.0-4.0); HEMATOCRIT 38.9 % (35.0-51.0); LYMPH # 3.7 K/uL (1.0-4.3); LYMPH % 38.3 % (20.0-40.0); MEAN CORPUSCULAR HEMOGLOBIN 33.5 pg (27.0-31.0); MEAN CORPUSCULAR HGB CONC 33.6 g/dL (33.0-37.0); MONO # 0.9 K/uL (0.0-0.8); MONO % 9.5 % (0.0-10.0); NRBC % 0.1 % (0.0-2.0); RED CELL DISTRIBUTION WIDTH 15.1 % (11.5-14.5); WHITE BLOOD COUNT 9.7 K/uL (4.8-10.8)
[2017-07-17 08:03] LABS: INR 1.1; MEAN CELL VOLUME 99.7 fL (80.0-94.0)
[2017-07-17 08:05] LABS: ALKALINE PHOSPHATASE 115 U/L (38-126); ALT/SGPT 33 U/L (21-72); AST/SGOT 30 U/L (17-59); BILIRUBIN,TOTAL 1.1 mg/dL (0.2-1.3); BLOOD UREA NITROGEN 15 mg/dL (9-20); CALCIUM 8.6 mg/dl (8.6-10.4); CARBON DIOXIDE 25 mmol/L (22-30); CHLORIDE 107 mmol/L (98-107); GFR AFRICAN-AMERICAN > 60; GLUCOSE,RANDOM 97 mg/dL (75-110); SODIUM 142 mmol/L (132-148); TOTAL PROTEIN 7.5 g/dL (6.3-8.3)
[2017-07-17 08:15] LABS: RBC URINE 133 /hpf (0-3); URINE BILIRUBIN NEGATIVE (NEGATIVE); URINE BLOOD 3+ (NEGATIVE); URINE COLOR Yellow (YELLOW); URINE GLUCOSE (UA) NORMAL (Normal); URINE KETONE NEGATIVE (NEGATIVE); URINE LEUKOCYTE ESTERASE TRACE Leu/uL (Negative); URINE PROTEIN 1+ mg/dL (NEGATIVE)
[2017-07-17 08:16] LABS: WBC URINE 2 /hpf (0-5)
[2017-07-17] MEDS ORDERED: Propofol 10 mg/ml Inj (20 ML) ONE (08:31)
[2017-07-17] MEDS ORDERED: Midazolam 2 MG/2 ML VIAL ONE (08:31)
[2017-07-17] MEDS ORDERED: Lactated Ringer's 500 ML IV ONE (08:32)
--- NOTE | 2017-07-17 08:32 | RAD ---
HISTORY: pre-op COMPARISON: 06/05/2017 TECHNIQUE: Chest PA and lateral FINDINGS: LUNGS: No active pulmonary disease. PLEURA: No significant pleural effusion identified. No pneumothorax apparent. CARDIOVASCULAR: Normal. OSSEOUS STRUCTURES: No significant abnormalities. VISUALIZED UPPER ABDOMEN: Normal. OTHER FINDINGS: None. IMPRESSION: No active disease.
[2017-07-17] MEDS ORDERED: Oxycodone/Acetaminophen 5/325 mg Tab PO PRN (08:37)
[2017-07-17] MEDS ORDERED: Lactated Ringer's 1,000 ML IV ONE (09:38)
[2017-07-17] MEDS ORDERED: HYDROmorphone 0.5 mg/0.5 ml ISec IVP PRN (09:39)
[2017-07-17] MEDS ORDERED: Gentamicin 80 mg in 0.9% NS 80 MG/100 ML BAG IVPB SCH (11:00)
--- NOTE | 2017-07-17 11:24 | RAD ---
HISTORY: RT. URETER CALCULI COMPARISON: Chest, abdomen and pelvis CT without contrast 06/04/2017. FINDINGS: BOWEL: Normal. No obstruction. No free air. Surgical clips in the right upper quadrant abdomen status post cholecystectomy. BONES: Normal. OTHER FINDINGS: Right-sided double-J ureteral stent is in position with calculi or calculus adjacent to the proximal segment of the stent likely somewhat distal than the calculi demonstrated in the prior CT of the proximal right ureter previously shown. Phleboliths identified in the pelvic soft tissues bilaterally. There is likely at least 1 calculus suggested in the lower pole left kidney as seen in prior abdomen pelvis CT better above. IMPRESSION: Right double-J ureteral stent in position with calculus abutting the stent in the proximal segment of the stent likely somewhat distal to its previous position seen in proximity ureter 06/04/2017 CT.
--- NOTE | 2017-07-17 11:51 | RAD ---
PROCEDURE: Intraoperative Fluoroscopy. HISTORY: RT. URETER CALCULI FINDINGS: Fluoroscopic assistance was provided for right ureteroscopy. Please seconds of fluoro time was utilized with 2.80 mGyM2 cumulative dose.
[2017-07-17 12:00] VITALS: RESP 18; O2SAT 98
[2017-07-17 12:37] VITALS: BP 165/85; PULSE 85; TEMP 97.9
--- NOTE | 2017-07-20 18:29 | CARD ---
APPROVED REPORT EKG Measurement Heart [id number] <Conclusion> Normal sinus rhythm Normal ECG
--- NOTE | 2017-08-11 05:05 | HP ---
UROLOGY EMERGENCY ADMISSION REASON FOR ADMISSION: Urolithiasis, hematuria, and flank pain. HISTORY OF PRESENT ILLNESS: Mr. Harley is a very pleasant gentleman who I know quite well, very pleasant, but extremely noncompliant gentleman. I have previously treated him for left-sided kidney stones, now we are treating the right side. He currently has a stent in place. For various reasons, we have not been able to treat him. I have tried to make arrangements at another institution for a shock wave lithotripsy, but then he was taking blood thinner and then we were trying for arranging for ureteroscopy. There have been various kinks in the meanwhile. In the meantime, we were trying to make arrangements, but he came in now with hematuria and worsening flank pain, and he has had a stent in a while, and he is very pleasant, but somewhat noncompliant. So, therefore, I am bringing him to the OR emergently for assisted ureteroscopy. See the plans listed below. Past medical and surgical history as listed on the chart. No history of an DE or CVA. See previously dictated notes. The patient has been here, had been at the [facility]. The patient has also been in [facility], and has been in multiple institutions. SOCIAL HISTORY: Essentially unremarkable. His daughter brings him to all his appointments. She is very helpful for his care. REVIEW OF SYSTEMS: As listed above, noncontributory otherwise. PHYSICAL EXAMINATION: GENERAL: A well-nourished, well-developed male, in no apparent distress. VITAL SIGNS: Within normal limits, included in the chart. LUNGS: Clear. ABDOMEN: Overall soft and nontender. No flank mass appreciated. GENITOURINARY: Normal phallus. No testicular mass. RECTAL: 20-g prostate, soft and smooth. LABORATORY DATA: See chart. DIAGNOSES: Gross hematuria, urolithiasis, hydronephrosis, right-sided flank pain, right-sided stone. ASSESSMENT AND PLAN: In summary, very pleasant gentleman; pleasant, but somewhat noncompliant. Recently we had him in [facility] and just that minute as we were about to start the procedure, the daughter he might be taking aspirin. So, after discussing the options, I do not think it is a reasonable option anymore to consider shock wave lithotripsy. Although that would have been the best option for the patient, we have had a lot of trouble with getting clearance. Including today, the patient was actually scheduled elsewhere. After discussing the options with the patient, finally he actually came to the emergency room with severe pain and hematuria. At this point, based on concern that he has a stent in place and I do not want this getting encrusted, we are going to plan to treat the right side today. (I do want to mention, previously we treated the left side with multiple treatments, ureteroscopy, laser lithotripsy, and shock wave lithotripsy). The plan for today is we are also going to treat the right side. We will bring him to the OR emergently. The plan is as follows: 1. Antibiotic prophylaxis. 2. Cystoscopy. 3. Ureteroscopy. 4. Laser lithotripsy and then further plans will follow. ADDENDUM: I have explained to the patient, risks, benefits, and treatment alternatives at great length. I do want to mention that the operative report is dictated in separate note, but to mention that we were able to successfully rid the patient off the stone, and insert a stent with dangler-string. See the operative note. Then the patient was subsequently discharged home to have the stent removed in the outpatient setting. Adams Herman MD
--- NOTE | 2017-08-11 05:52 | OP ---
PROCEDURE DATE: 07/17/2017 PREOPERATIVE DIAGNOSES: Urolithiasis, hematuria, bilateral stone disease. Today, we are treating the right side, right-sided kidney stones, right hydronephrosis, hematuria. POSTOPERATIVE DIAGNOSES: Urolithiasis, hematuria, bilateral stone disease. Today, we are treating the right side, right-sided kidney stones, right hydronephrosis, hematuria. PROCEDURES: Cystoscopy, removal of right double J-stent, right ureteroscopy, right laser lithotripsy, insertion of right double J-stent with dangles. COMPLICATIONS: There were no complications. ESTIMATED BLOOD LOSS: Less than 10 mL. OPERATIVE FINDINGS: 1. Normal anterior urethra, no strictures; on viewing it, moderately visually occlusive. 2. The ureteral stone was identified in the right upper ureter. 3. It is blasted until its completion. DRAINS: At the termination of the procedure, the patient has a double J-stent in place and there were no complications. INDICATIONS: See the history. This is a very pleasant gentleman, here for the above listed procedures. We have discussed the options with the patient, risks, benefits, and treatment alternatives at length. We have been trying to make arrangements elsewhere. It is very, very difficult with this patient for various reasons; including we had him scheduled at [place], and then in the last minute he said maybe he was taking aspirin, although we had thought we had arranged to stop it, and because there was many concerns, we decided to delay the procedure, and then obtaining medical clearance was somewhat of a challenge. After discussing options, we were still in the air as to whether to treat patient or not. However, now he presented to our ER with severe worsening pain and also gross hematuria; and after discussing options, instead of delaying any further, I was worried about the stent and encrustation and like and his care, we decided to bring him straight to the OR today for an emergency for the above listed procedures. DESCRIPTION OF PROCEDURE: After obtaining informed consent, and discussing with the patient options, risks, benefits, and alternatives, the patient was given antibiotic prophylaxis. Time-out was called to reconfirm the patient, positioning exactly in the lithotomy position. Cystoscope via the urethra, ureteral stent was identified on the right side. Right double J-stent was removed with a wire and passed up to the kidney, with a little difficulty because of the stent getting encrusted. At this point, we then introduced our rigid ureteroscope adjacent to the wire. We confirmed our positioning under fluoroscopic imaging. We identified the stone, and then we provided laser energy. We used a 0.375 fiber. We run it with the maximum number of joules at the least frequency until we blasted the entire stone. Multiple pictures were taken and saved. At this point, we put a double J-stent in and confirmed its positioning. Emptied the bladder. The patient tolerated the procedure well without complication. ADDENDUM: The plan will be subsequently outpatient followup. Adams Herman MD
== END 2017-07-17 12:02 | disposition home or self-care (01) ==
LOC: C.ER 06:48 → C.SDS 07:28
PROVIDERS: ATTEND Urology
DX: N13.2 Hydronephrosis with renal and ureteral calculous obstruction (principal); Z87.891 Personal history of nicotine dependence; J45.909 Unspecified asthma, uncomplicated; E78.00 Pure hypercholesterolemia, unspecified; I50.9 Heart failure, unspecified; I11.0 Hypertensive heart disease with heart failure
CPT/HCPCS: 36415; 52356; 71046; 80053; 81001; 85025; 85610; 85730; 88300; 93005; 99285; C1769; C2617; J0696; J7120

== ENCOUNTER 2018-01-27 12:26 | Inpatient (IN) | payer MEDICAID ==
[2018-01-27 12:43] VITALS: BMI 35.5
[2018-01-27] MEDS ORDERED: Sodium Chloride 0.9% 500 ML IV ONE (13:13)
--- NOTE | 2018-01-27 13:30 | RAD ---
PROCEDURE: CHEST RADIOGRAPH, 1 VIEW HISTORY: COUGH, RIGHT SIDED BACK PAIN COMPARISON: Chest radiograph dated 07/17/2017. FINDINGS: LUNGS: Clear. PLEURA: No pneumothorax or pleural fluid seen. CARDIOVASCULAR: Atherosclerotic aortic calcifications. Cardiomediastinal silhouette stably prominent. OSSEOUS STRUCTURES: Unchanged. VISUALIZED UPPER ABDOMEN: Normal. OTHER FINDINGS: None. IMPRESSION: No active disease.
[2018-01-27] MEDS ORDERED: Sodium Chloride 0.9% 1,000 ML ONE (13:45)
[2018-01-27 13:58] LABS: BASO % 0.1 % (0.0-2.0); EOS % 0.1 % (0.0-4.0); HEMOGLOBIN 12.6 g/dL (12.0-18.0); LYMPH # 1.1 K/uL (1.0-4.3); LYMPH % 5.9 % (20.0-40.0); MEAN CORPUSCULAR HEMOGLOBIN 35.1 pg (27.0-31.0); MEAN CORPUSCULAR HGB CONC 34.1 g/dL (33.0-37.0); MEAN PLATELET VOLUME 9.5 fL (7.2-11.7); MONO # 1.2 K/uL (0.0-0.8); MONO % 6.6 % (0.0-10.0); NEUT # 15.6 K/uL (1.8-7.0); NEUT % 87.3 % (50.0-75.0); RBC 3.59 Mil/uL (4.40-5.90); RED CELL DISTRIBUTION WIDTH 15.8 % (11.5-14.5)
[2018-01-27 14:01] LABS: MEAN CELL VOLUME 102.9 fL (80.0-94.0); PLATELET COUNT 91 K/uL (130-400); WHITE BLOOD COUNT 17.9 K/uL (4.8-10.8)
[2018-01-27] MEDS ORDERED: Albuterol-Ipratrop 3 mg / 0.5 (3 ml) UD INH STA ×2 (14:05→20:56)
--- NOTE | 2018-01-27 14:20 | C.PDOC ---
History Of Present Illness 62 y/o female presents to ED with c/o productive cough, fever, chills and right sided mid back pain for 2 days. Patient has h/o chronic alcoholism, states he has not been eating fell and feels generalized weakness. He denies vomiting, diarrhea, dysuria, flank pain, abdominal pain, vomiting, diarrhea, chest pain or any other complaints. Time Seen by Provider: 01/27/18 13:07 Chief Complaint (Nursing): GI Problem History Per: Patient History/Exam Limitations: no limitations Onset/Duration Of Symptoms: Days Current Symptoms Are (Timing): Still Present Severity: Moderate Past Medical History Reviewed: Historical Data, Nursing Documentation, Vital Signs Vital Signs: Last Vital Signs Temp 98.1 F 01/29/18 07:00 Pulse 83 01/29/18 08:00 Resp 20 01/29/18 07:00 BP 146/79 01/29/18 07:00 Pulse Ox 95 01/29/18 15:00 - Medical History PMH: Asthma, Back Problems (Herniated disc), CHF, HTN, Hypercholesterolemia, Kidney Stones, Chronic Kidney Disease Surgical History: Cholecystectomy - [facility] Procedures ALCOHOL DETOXIFICATION (06/26/13) CLOSED ENDOSCOPIC BIOPSY OF LARGE INTESTINE (08/30/13) DILATION OF RIGHT URETER WITH INTRALUMINAL DEVICE, ENDO (06/04/17) INSERTION OF INFUSION DEV INTO SUP VENA CAVA, PERC APPROACH (06/04/17) NAIL REMOVAL (02/02/13) ULTRASONOGRAPHY OF SUPERIOR VENA CAVA, GUIDANCE (06/04/17) Family History: States: No Known Family Hx - Social History Hx Tobacco Use: Yes Hx Alcohol Use: Yes Hx Substance Use: No - Immunization History Hx Tetanus Toxoid Vaccination: Yes Hx Influenza Vaccination: Yes Hx Pneumococcal Vaccination: Yes Review Of Systems Constitutional: Positive for: Fever, Chills, Weakness Cardiovascular: Negative for: Chest Pain Respiratory: Positive for: Cough. Negative for: Shortness of Breath Gastrointestinal: Negative for: Nausea, Vomiting, Abdominal Pain, Diarrhea Genitourinary: Negative for: Dysuria, Hematuria Musculoskeletal: Positive for: Back Pain Skin: Negative for: Rash Physical Exam - Physical Exam Appears: Well, Non-toxic, Other (Speaking in full sentences, appears mildly uncomfortable) Skin: Normal Color, Warm, Dry, No Rash Head: Normacephalic Eye(s): bilateral: Normal Inspection Ear(s): Bilateral: Normal Oral Mucosa: Moist Throat: Normal, No Erythema, No Exudate Neck: Supple Cardiovascular: Rhythm Regular, Other (Tachycardic) Respiratory: Decreased Breath Sounds (right base), No Accessory Muscle Use, No Rales, No Rhonchi, Wheezing (mild expiratory) Gastrointestinal/Abdominal: Normal Exam, Bowel Sounds, Soft, No Tenderness, No Guarding, No Rebound, Other (obese abdomen) Back: No CVA Tenderness, No Paraspinal Tenderness Neurological/Psych: Oriented x3 ED Course And Treatment - Laboratory Results Result Diagrams: 01/29/18 07:45 01/29/18 07:45 ECG: Interpreted By Me, Viewed By Me ECG Rhythm: Sinus Tachycardia ECG Interpretation: Abnormal Interpretation Of ECG: PACs, Left axis deviation, no acute ST changes Rate From EC (BPM ) O2 Sat by Pulse Oximetry: 95 (RA) Pulse Ox Interpretation: Normal - Other Rad CXR X-Ray: Viewed By Me, Read By Radiologist Interpretation: Accession No. : [id number]. Patient Name / ID : STEPHANIE THAKKAR / [id number]. Exam Date : 01/27/2018 13:18:21 ( Approved ). Study Comment : Sex / Age : M / 62Y. Creator : Raghav Romo MD. Dictator : Raghav Romo MD. Berry Planter : Subsurface Augmentee Operator : Raghav Romo MD. Approver2 : Report Date : 01/27/2018 13:28:16. My Comment : . PROCEDURE: CHEST RADIOGRAPH, 1 VIEW. HISTORY: COUGH, RIGHT SIDED BACK PAIN. COMPARISON : Chest radiograph dated 07/17/2017. FINDINGS: LUNGS: Clear. PLEURA: No pneumothorax or pleural fluid seen. CARDIOVASCULAR: Atherosclerotic aortic calcifications. Cardiomediastinal silhouette stably prominent. OSSEOUS STRUCTURES: Unchanged. VISUALIZED UPPER ABDOMEN: Normal. OTHER FINDINGS: None. IMPRESSION: No active disease. - CT Scan/US ct chest/abd/pelvis Other Rad Studies (CT/US): Read By Radiologist, Radiology Report Reviewed CT/US Interpretation: Accession No. : [id number]. Patient Name / ID : STEPHANIE THAKKAR / [id number]. Exam Date : 01/27/2018 16:10:15 ( Approved ). Study Comment : Sex / Age : M / 62Y. Creator : Hi Payne. Dictator : Berry Planter : Subsurface Augmentee Operator : Adam Henderson MD. Approver2 : Report Date : 01/27/2018 16:15:35. My Comment : . PROCEDURE: CT Chest, Abdomen and Pelvis without intravenous contrast. HISTORY: LEUKOCYTOSIS WITH BANDEMIA, COUGH, ELEVATED LFTS. COMPARISON: Comparison made with CT chest abdomen pelvis dated 06/04/2017. TECHNIQUE: Radiation dose: Total exam DLP = 1510.92 mGy-cm. This CT exam was performed using one or more of the following dose reduction techniques: Automated exposure control, adjustment of the mA and/or kV according to patient size, and/or use of iterative reconstruction technique. FINDINGS: CT CHEST WITHOUT CONTRAST: LUNGS: Atelectasis/infiltrate changes right medial lung base, associated with a few air bronchograms. Early patchy infiltrate changes also present within the right middle lobe. . Some minor scarring changes are also present in the right middle lobe. Mild linear scarring also present in the left upper lobe/lingular region. . Centrilobular emphysematous changes upper lobe predominance. MEDIASTINUM: Heart size within range of normal. No significant pericardial effusion. LYMPH NODES: Borderline right paratracheal lymph node measuring 17.3 mm. Few additional small mediastinal lymph nodes are present. . Evaluation for hilar adenopathy is limited due to the lack of circulating intravenous contrast material. There is a small hiatal hernia with slight wall thickening of the distal esophagus likely due to protrusion gastric mucosa. Esophagitis not excluded. Central airways are midline and patent. No large central endoluminal lesions. PLEURA: Unremarkable. No pneumothorax. No pleural fluid. BONES: Minor multilevel degenerative spondylosis of the thoracic spine. Minor chronic anterior wedge deformities of few lower thoracic segments. OTHER FINDINGS: Enlarged heterogeneous right lobe thyroid gland. Consider thyroid ultrasound followup. Mild bilateral gynecomastia changes. CT ABDOMEN AND PELVIS: LIVER: Liver is enlarged measuring nearly 22 cm in CC dimension. Significant fatty hepatic infiltration. The surface of the liver exhibits slight nodular contour. GALLBLADDER AND BILE DUCTS: Cholecystectomy. PANCREAS: Pancreas is slightly atrophic and fatty replaced. No obvious pancreatic mass collection or calcification. SPLEEN: Spleen exhibits normal size and attenuation pattern without mass collection or calcification. ADRENALS: Slightly nodular appearing left adrenal gland. KIDNEYS AND URETERS: Kidneys demonstrate symmetric size. Scattered tiny bilateral renal calculi are again seen. No evidence of nephrolithiasis or hydronephrosis. VASCULATURE: Unremarkable. No aortic aneurysm. BOWEL: Evaluation of the bowel is limited due to the lack of oral contrast material. The stomach is collapsed. Questionable duodenal diverticulum. Remaining visualized loops of small bowel otherwise exhibit normal contour and caliber. No evidence of acute mechanical small bowel obstruction. There are multiple colonic diverticula bulk which seen arising from the sigmoid and distal descending colon. There is also wall thickening of the distal descending and sigmoid colon likely due to muscular hypertrophy. No definitive inflammatory changes seen surrounding this portion of the bowel. However however note is made of mild wall thickening of the cecum, ascending and transverse colon which may in part be due to submucosal fat deposition however edema related to nonspecific colitis to be considered. APPENDIX: Normal appendix. PERITONEUM: Unremarkable. No evidence of free intraperitoneal air. . No free or loculated fluid collections. Small fat containing umbilical hernia. LYMPH NODES: Unremarkable. No enlarged lymph nodes. BLADDER: Urinary bladder is incompletely distended which presumably in part accounts thick-walled appearance. . Muscular hypertrophy presumably contributes. Possibility of a cystitis not excluded. REPRODUCTIVE: Prostatic calcifications are again noted. BONES: Mild multilevel degenerative spondylosis of the lumbar spine. OTHER FINDINGS: None. IMPRESSION: Right lower lobe atelectasis/ infiltrate. Mild early infiltrate changes seen in the right middle lobe. Scarring in the middle lobe and lingular region. Centrilobular emphysematous changes upper lobe predominance. There appears to be wall thickening of the cecum at ascending and transverse colon which may in part be due to submucosal fat deposition or edema related to nonspecific colitis. Multiple colonic diverticula arising from the sigmoid and distal descending colon with wall associate with wall thickening that may represent some combination of muscular hypertrophy,, underdistention, peristalsis and under opacified stool. No definitive inflammatory changes seen in the adjacent mesenteric. Hepatomegaly with significant fatty infiltration of the liver. . Liver contour is slightly nodular. Cholecystectomy. Urinary bladder wall thickening likely due to incomplete distention and heart muscular hypertrophy however correlation with urinalysis recommended. Multiple nonobstructing bilateral renal calculi. Enlarged heterogeneous right lobe thyroid gland. . Followup thyroid ultrasound recommended Progress Note: Plan: Blood work, CXR, EKG, UA ordered and reviewed. CXR shows possible right sided infiltrate? Patient tachycardic, with leukocytosis, 20% bands, elevated lactate - Code sepsis called. CT chest/abd/pelvis ordered to further eval infectious source - confirms right sided infiltrate. IV rocephin and Azithromycin given. Reevaluation Time: 17:00 Reassessment Condition: Improved (Patient resting comfortably, vitals improved with IV fluids.) - Physician Consult Information Physician Contacted: Minor Mancilla Outcome Of Conversation: Discussed patient with PMD, agrees with admission for pneumonia, sepsis, leukocytosis, bandemia. Critical Care Time - Critical Care Note Total Time (in mins): 40 Documented critical care: time excludes all time spent performing seperately billable procedures. Disposition - Disposition Disposition: HOSPITALIZED Disposition Time: 17:34 Condition: FAIR - Clinical Impression Clinical Impression: Sepsis, Pneumonia, Bandemia, Leukocytosis - Scribe Statement The provider has reviewed the documentation as recorded by the Jeff Redding All medical record entries made by the Jeff were at my direction and personally dictated by me. I have reviewed the chart and agree that the record accurately reflects my personal performance of the history, physical exam, medical decision making, and the department course for this patient. I have also personally directed, reviewed, and agree with the discharge instructions and disposition. Decision To Admit - Pt Status Changed To: Hospital Disposition Of: Inpatient - Admit Certification Admit to Inpatient:: After my assessment, the patient will require hospitalization for at least two midnights. This is because of the severity of symptoms shown, intensity of services needed, and/or the medical risk in this patient being treated as an outpatient. - InPatient: Physician Admission Certification: I certify that this patient requires 2 or more midnights of care for the following reason:: see notes - . Bed Request Type: Telemetry Admitting Physician: Minor Mancilla Patient Diagnosis: Sepsis, Pneumonia, Bandemia, Leukocytosis
[2018-01-27] MEDS ORDERED: Albuterol-Ipratrop 3 mg / 0.5 (3 ml) UD ONE (14:24)
[2018-01-27 14:25] LABS: SQUAMOUS EPITHIAL 1 /hpf (0-5); URINE BACTERIA RARE (<OCC); URINE BILIRUBIN NEGATIVE (NEGATIVE); URINE BLOOD 1+ (NEGATIVE); URINE CLARITY Clear (Clear); URINE COLOR Amber (YELLOW); URINE GLUCOSE (UA) NORMAL (Normal); URINE PROTEIN NEGATIVE (NEGATIVE)
[2018-01-27 14:26] LABS: URINE LEUKOCYTE ESTERASE 2+ Leu/uL (Negative)
[2018-01-27 14:56] LABS: ALB/GLOB RATIO 0.8 (1.0-2.1); ALBUMIN 2.9 g/dL (3.5-5.0); ALT/SGPT 77 U/L (21-72); AST/SGOT 168 U/L (17-59); BLOOD UREA NITROGEN 19 mg/dL (9-20); CALCIUM 7.1 mg/dl (8.6-10.4); GFR AFRICAN-AMERICAN > 60; GFR NON-AFRICAN AMERICAN > 60
[2018-01-27 15:17] LABS: BANDS 20 % (0-2); LYMPHOCYTE 5 % (20-40); MONOCYTE 5 % (0-10); NEUTROPHIL 70 % (50-75); TOTAL CELLS COUNTED 100
[2018-01-27 15:18] LABS: PLATELET ESTIMATE NORMAL (NORMAL)
[2018-01-27] MEDS ORDERED: cefTRIAXone IV 1 gm in Dextros 50 ML IV STA (15:21)
[2018-01-27] MEDS ORDERED: Azithromycin 500 MG in Sodium Chloride 0.9% 250 ML IVPB STA (15:22)
[2018-01-27] MEDS ORDERED: cefTRIAXone IV 1 gm in Dextros 50 ML IVPB ONE (15:38)
[2018-01-27 15:57] LABS: VENOUS BLOOD GAS BASE EXCESS -2.5 mmol/L (0.0-2.0); VENOUS BLOOD GAS PCO2 35 mmHg (40-60); VENOUS BLOOD GAS PO2 55 mm/Hg (30-55)
[2018-01-27] MEDS ORDERED: Lactated Ringer's 1,000 ML ONE (16:15)
[2018-01-27 16:36] LABS: CK-MB 3.77 ng/mL (0.0-3.38); TROPONIN I 0.013 ng/mL (0.00-0.120)
--- NOTE | 2018-01-27 16:58 | CT ---
PROCEDURE: CT Chest, Abdomen and Pelvis without intravenous contrast HISTORY: LEUKOCYTOSIS WITH BANDEMIA, COUGH, ELEVATED LFTS COMPARISON: Comparison made with CT chest abdomen pelvis dated 06/04/2017 TECHNIQUE: Radiation dose: Total exam DLP = 1510.92 mGy-cm. This CT exam was performed using one or more of the following dose reduction techniques: Automated exposure control, adjustment of the mA and/or kV according to patient size, and/or use of iterative reconstruction technique. FINDINGS: CT CHEST WITHOUT CONTRAST: LUNGS: Atelectasis/infiltrate changes right medial lung base, associated with a few air bronchograms. Early patchy infiltrate changes also present within the right middle lobe. . Some minor scarring changes are also present in the right middle lobe. Mild linear scarring also present in the left upper lobe/lingular region. . Centrilobular emphysematous changes upper lobe predominance. MEDIASTINUM: Heart size within range of normal. No significant pericardial effusion. LYMPH NODES: Borderline right paratracheal lymph node measuring 17.3 mm. Few additional small mediastinal lymph nodes are present. . Evaluation for hilar adenopathy is limited due to the lack of circulating intravenous contrast material. There is a small hiatal hernia with slight wall thickening of the distal esophagus likely due to protrusion gastric mucosa. Esophagitis not excluded. Central airways are midline and patent. No large central endoluminal lesions. PLEURA: Unremarkable. No pneumothorax. No pleural fluid. BONES: Minor multilevel degenerative spondylosis of the thoracic spine. Minor chronic anterior wedge deformities of few lower thoracic segments. OTHER FINDINGS: Enlarged heterogeneous right lobe thyroid gland. Consider thyroid ultrasound followup. Mild bilateral gynecomastia changes. CT ABDOMEN AND PELVIS: LIVER: Liver is enlarged measuring nearly 22 cm in CC dimension. Significant fatty hepatic infiltration. The surface of the liver exhibits slight nodular contour. GALLBLADDER AND BILE DUCTS: Cholecystectomy. PANCREAS: Pancreas is slightly atrophic and fatty replaced. No obvious pancreatic mass collection or calcification. SPLEEN: Spleen exhibits normal size and attenuation pattern without mass collection or calcification. ADRENALS: Slightly nodular appearing left adrenal gland. KIDNEYS AND URETERS: Kidneys demonstrate symmetric size. Scattered tiny bilateral renal calculi are again seen. No evidence of nephrolithiasis or hydronephrosis. VASCULATURE: Unremarkable. No aortic aneurysm. BOWEL: Evaluation of the bowel is limited due to the lack of oral contrast material. The stomach is collapsed. Questionable duodenal diverticulum. Remaining visualized loops of small bowel otherwise exhibit normal contour and caliber. No evidence of acute mechanical small bowel obstruction. There are multiple colonic diverticula bulk which seen arising from the sigmoid and distal descending colon. There is also wall thickening of the distal descending and sigmoid colon likely due to muscular hypertrophy. No definitive inflammatory changes seen surrounding this portion of the bowel. However however note is made of mild wall thickening of the cecum, ascending and transverse colon which may in part be due to submucosal fat deposition however edema related to nonspecific colitis to be considered. APPENDIX: Normal appendix. PERITONEUM: Unremarkable. No evidence of free intraperitoneal air. . No free or loculated fluid collections. Small fat containing umbilical hernia. LYMPH NODES: Unremarkable. No enlarged lymph nodes. BLADDER: Urinary bladder is incompletely distended which presumably in part accounts thick-walled appearance. . Muscular hypertrophy presumably contributes. Possibility of a cystitis not excluded. REPRODUCTIVE: Prostatic calcifications are again noted BONES: Mild multilevel degenerative spondylosis of the lumbar spine. OTHER FINDINGS: None. IMPRESSION: Right lower lobe atelectasis/ infiltrate. Mild early infiltrate changes seen in the right middle lobe. Scarring in the middle lobe and lingular region. Centrilobular emphysematous changes upper lobe predominance. There appears to be wall thickening of the cecum at ascending and transverse colon which may in part be due to submucosal fat deposition or edema related to nonspecific colitis. Multiple colonic diverticula arising from the sigmoid and distal descending colon with wall associate with wall thickening that may represent some combination of muscular hypertrophy,, underdistention, peristalsis and under opacified stool. No definitive inflammatory changes seen in the adjacent mesenteric. Hepatomegaly with significant fatty infiltration of the liver. . Liver contour is slightly nodular. Cholecystectomy. Urinary bladder wall thickening likely due to incomplete distention and heart muscular hypertrophy however correlation with urinalysis recommended. Multiple nonobstructing bilateral renal calculi. Enlarged heterogeneous right lobe thyroid gland. . Followup thyroid ultrasound recommended
[2018-01-27] MEDS ORDERED: Lactated Ringer's 2,000 ML ONE (18:06)
[2018-01-27 19:14] LABS: VENOUS BLOOD GAS BASE EXCESS -8.6 mmol/L (0.0-2.0); VENOUS BLOOD GAS PCO2 22 mmHg (40-60); VENOUS BLOOD GAS PO2 38 mm/Hg (30-55); VENOUS BLOOD PH 7.41 (7.32-7.43)
[2018-01-27] MEDS: Dextrose 5%/0.45% NS 1,000 ML IV SCH (23:56)
[2018-01-28] MEDS ORDERED: Potassium Chloride 20 mEq ER Tab PO ONE (01:34)
[2018-01-28] MEDS: Albuterol-Ipratrop 3 mg / 0.5 (3 ml) UD INH SCH ×6 (02:06→19:45)
[2018-01-28 07:26] LABS: HEMOGLOBIN 11.6 g/dL (12.0-18.0); MEAN CELL VOLUME 102.8 fL (80.0-94.0); MEAN CORPUSCULAR HEMOGLOBIN 35.6 pg (27.0-31.0); MEAN CORPUSCULAR HGB CONC 34.6 g/dL (33.0-37.0); MEAN PLATELET VOLUME 9.5 fL (7.2-11.7); RBC 3.26 Mil/uL (4.40-5.90); WHITE BLOOD COUNT 14.3 K/uL (4.8-10.8)
[2018-01-28 07:43] LABS: ALB/GLOB RATIO 0.8 (1.0-2.1); ALBUMIN 2.8 g/dL (3.5-5.0); ALT/SGPT 73 U/L (21-72); AST/SGOT 164 U/L (17-59); BLOOD UREA NITROGEN 16 mg/dL (9-20); CALCIUM 7.4 mg/dl (8.6-10.4); GFR AFRICAN-AMERICAN > 60; GFR NON-AFRICAN AMERICAN > 60
[2018-01-28] MEDS ORDERED: Oxycodone/Acetaminophen 5/325 mg Tab PO PRN (08:51)
--- NOTE | 2018-01-28 09:51 | CP.PCM.PN ---
Subjective - Date & Time of Evaluation Date of Evaluation: 01/28/18 Time of Evaluation: 09:44 - Subjective Subjective: Progress Note for Dr. Mancilla's Service 62 y/o M with hx of HTN, asthma, renal calculi, anxiety and herniated discs in the lumbar spine presenting for 1 week hx of cough with fevers. Pt was seen by Dr. Mancilla outpatient, placed on abx for suspected pna but did not resolve with full course of abx completed. Presented to ED with persistent cough and fevers and found to have RLL infiltrate. Pt was admitted overnight for PNA. No acute events overnight. WBC 14, afebrile. This morning pt complains of cough and chronic back pain for which he normally takes percocet. PMH HTN, asthma, renal calculi, anxiety and herniated discs in the lumbar spine PSH lithotripsy, L knee orthopedic procedure Allergy moxifoxacin Meds coreg, xanax, proventil, percocet Family history not contributory Social smokes 1PPD x 30+ yrs, hx of ETOH abuse? but has not had a drink in over a month, denied any drugs Objective - Vital Signs/Intake and Output Vital Signs (last 24 hours): Temp Pulse Resp BP Pulse Ox 97.8 F 88 20 118/63 96 01/28/18 09:03 01/28/18 09:03 01/28/18 09:03 01/28/18 09:03 01/28/18 09:03 Intake and Output: 01/28/18 01/28/18 06:59 18:59 Intake Total 1060 Output Total 825 Balance 235 - Medications Medications: Current Medications Acetaminophen (Tylenol 325mg Tab) 650 mg PO Q6 PRN PRN Reason: Temp 101 and above and pain Last Admin: 01/28/18 00:00 Dose: 650 mg Albuterol/Ipratropium (Duoneb 3 Mg/0.5 Mg (3 Ml) Ud) 3 ml INH RQ4 PAM Last Admin: 01/28/18 07:41 Dose: 3 ml Alprazolam (Xanax) 0.25 mg PO Q12H PRN PRN Reason: Anxiety Stop: 02/03/18 22:46 Carvedilol (Coreg) 3.125 mg PO BID PAM Enoxaparin Sodium (Lovenox) 40 mg SC DAILY [facility] Azithromycin 500 mg/ Sodium (Chloride) 250 mls @ 250 mls/hr IVPB DAILY PAM PRN Reason: Protocol Ceftriaxone Sodium 1 gm/ (Sodium Chloride) 100 mls @ 100 mls/hr IVPB DAILY PAM PRN Reason: Protocol Dextrose/Sodium Chloride (Dextrose 5%/0.45% Ns 1000 Ml) 1,000 mls @ 100 mls/hr IV .Q10H [facility] Last Admin: 01/27/18 23:56 Dose: 100 mls/hr Lorazepam (Ativan) 2 mg IVP Q6H PRN PRN Reason: Anxiety Oxycodone/Acetaminophen (Percocet 5/325 Mg Tab) 1 tab PO Q6H PRN PRN Reason: Pain, moderate (4-7) Stop: 01/31/18 08:52 Rosuvastatin Calcium (Crestor) 10 mg PO HS [facility] Thiamine HCl (Vitamin B1 Inj) 100 mg IM DAILY [facility] - Labs Labs: 01/28/18 07:12 01/28/18 07:12 - Constitutional Appears: No Acute Distress - Head Exam Head Exam: ATRAUMATIC, NORMOCEPHALIC - Eye Exam Eye Exam: EOMI, Normal appearance - ENT Exam ENT Exam: Mucous Membranes Moist - Respiratory Exam Respiratory Exam: Rhonchi (RLL). absent: Prolonged Expiratory Phase, Respiratory Distress - Cardiovascular Exam Cardiovascular Exam: REGULAR RHYTHM, +S1, +S2 - GI/Abdominal Exam GI & Abdominal Exam: Soft. absent: Tenderness - Neurological Exam Neurological Exam: Alert, Awake, Oriented x3 - Psychiatric Exam Psychiatric exam: Normal Affect, Normal Mood - Skin Skin Exam: Dry, Warm Assessment and Plan - Assessment and Plan (Free Text) Plan: RLL PNA Duonebs q4hrs prn Azithromycin 500mg IV daily started 01/28 Ceftriaxone 1g IV daily started 01/28 Asthma -continue duoneb q4hrs prn -on nc Thrombocytopenia -hold a/c -monitor Hx of BPH -On Flomax daily -Continue to monitor Anxiety xanax 0.25mg q12 prn ativan 2mg IV q6hrs prn HTN -Previous echo shows normal EF of 71 percent -Coreg 3.125 PO BID Hx of EtOH abuse -Pt has not had alcohol in greater than 1 month. No w/d symptoms. Continue to monitor- nursing staff made aware. Discussed with Nurse Gavino Neal who agree that pt does not exhibit symptoms of w/d. Thiamine Multivitamin Herniated Disc L-Spine -Continue home med: percocet 1T PO q6hrs prn GI/DVT ppx -No a/x in setting of thrombocytopenia -florastor 250mg bid -reinforce smoking cessation Case discussed with Dr. Mancilla All management as per Dr. Mancilla
[2018-01-28] MEDS ORDERED: Thiamine 100 mg/ml Inj IM SCH (10:00)
[2018-01-28] MEDS ORDERED: Enoxaparin 40 mg Syringe SC SCH (10:00)
[2018-01-28] MEDS: Multiple Vitamins Tab PO SCH (11:15)
[2018-01-28] MEDS: Dextrose 5%/0.45% NS 1,000 ML IV SCH (11:17)
[2018-01-28] MEDS: Saccharomyces Boulardi 250 mg Cap PO SCH ×2 (11:21→17:07)
[2018-01-28] MEDS: Azithromycin 500 MG in Sodium Chloride 0.9% 250 ML IVPB SCH (11:24)
[2018-01-28] MEDS ORDERED: Potassium Phosphate 15 MMOLE in Sodium Chloride 0.9% 250 ML IVPB ONE (16:00)
--- NOTE | 2018-01-28 18:21 | CP.PCM.CON ---
History of Present Illness - History of Present Illness History of Present Illness: 62 y/o male presents to ED with c/o productive cough, fever, chills and right mid back pain for 7 days. Patient is a chronic alcoholic and states he does not eat well, state she feels weak. Patient denies vomiting, diarrhea, dysuria, flank pain or any other complaints at this time. REFERRED FOR ID EVAL AND ANTIBIOTIC MANAGEMENT - Medical History PMH: Asthma, Back Problems (Herniated disc), CHF, HTN, Hypercholesterolemia, Kidney Stones, Chronic Kidney Disease Surgical History: Cholecystectomy - [facility] Procedures ALCOHOL DETOXIFICATION (06/26/13) CLOSED ENDOSCOPIC BIOPSY OF LARGE INTESTINE (08/30/13) DILATION OF RIGHT URETER WITH INTRALUMINAL DEVICE, ENDO (06/04/17) INSERTION OF INFUSION DEV INTO SUP VENA CAVA, PERC APPROACH (06/04/17) NAIL REMOVAL (02/02/13) ULTRASONOGRAPHY OF SUPERIOR VENA CAVA, GUIDANCE (06/04/17) Review of Systems - Review of Systems All systems: reviewed and no additional remarkable complaints except - Constitutional Constitutional: As Per HPI - EENT Eyes: absent: As Per HPI, Blind Spots, Blurred Vision, Change in Vision, Decreased Night Vision, Diplopia, Discharge, Dry Eye, Exophthalmos, Floaters, Irritation, Itchy Eyes, Loss of Peripheral Vision, Pain, Photophobia, Requires Corrective Lenses, Sees Flashes, Spots in Vision, Tunnel Vision, Other Visual Disturbances, Loss of Vision, Other Ears: absent: As Per HPI, Decreased Hearing, Ear Discharge, Ear Pain, Tinnitus, Abnormal Hearing, Disequilibrium, Dizziness, Other Nose/Mouth/Throat: absent: As Per HPI, Epistaxis, Nasal Congestion, Nasal Discharge, Nasal Obstruction, Nasal Trauma, Nose Pain, Post Nasal Drip, Sinus Pain, Sinus Pressure, Bleeding Gums, Change in Voice, Dental Pain, Dry Mouth, Dysphagia, Halitosis, Hoarsness, Lip Swelling, Mouth Lesions, Mouth Pain, Odynophagia, Sore Throat, Throat Swelling, Tongue Swelling, Facial Pain, Neck Pain, Neck Mass, Other - Cardiovascular Cardiovascular: As Per HPI - Respiratory Respiratory: As Per HPI, Cough, Dyspnea. absent: Hemoptysis - Gastrointestinal Gastrointestinal: absent: As Per HPI, Abdominal Pain, Belching, Bloating, Change in Bowel Habits, Change in Stool Character, Coffee Ground Emesis, Constipation, Cramping, Diarrhea, Dyspepsia, Dysphagia, Early Satiety, Excessive Flatus, Fecal Incontinence, Heartburn, Hematemesis, Hematochezia, Loose Stools, Melena, Nausea, Odynophagia, Temesmus, Vomiting, Other - Genitourinary Genitourinary: absent: As Per HPI, Change in Urinary Stream, Difficulty Urinating, Dysuria, Flank Pain, Hematuria, Pyuria, Nocturia, Urinary Incontinence, Urinary Frequency, Urinary Hesitance, Urinary Urgency, Voiding Freq/Small Amts, Freq UTI, Hx Renal/Bladder Calculi, Hx /Renal Surgery, Bladder Distension, Other - Musculoskeletal Musculoskeletal: absent: As Per HPI, Abnormal Gait, Arthralgias, Atrophy, Back Pain, Deformity, Joint Swelling, Limited Range of Motion, Loss of Height, Muscle Cramps, Muscle Weakness, Myalgias, Neck Pain, Numbness, Radiating Pain into Limb, Stiffness, Tingling, Other - Integumentary Integumentary: absent: As Per HPI, Acne, Alopecia, Bleeding Lesions, Change in Hair, Change in Nails, Change in Pigmentation, Changing Lesions, Dry Skin, Erythema, Furuncle, Hirsutism, Lesions, New Lesions, Non-Healing Lesions, Photosensitivity, Pruritus, Rash, Skin Pain, Skin Ulcer, Sores, Striae, Swelling , Unusual Bruising, Wounds, Jaundice, Other - Neurological Neurological: absent: As Per HPI, Abnormal Gait, Abnormal Hearing, Abnormal Movements, Abnormal Speech, Behavioral Changes, Burning Sensations, Confusion, Convulsions, Disequilibrium, Dizziness, Numbness, Focal Weakness, Frequent Falls , Headaches, Lack of Coordination, Loss of Vision, Memory Loss, Paresthesias, Radicular Pain, Restless Legs, Sensory Deficit, Syncope, Tingling, Tremor, Vertigo, Weakness, Other Visual Disturbances, Other - Psychiatric Psychiatric: absent: As Per HPI, Abnormal Sleep Pattern, Anhedonia, Anxiety, Auditory Hallucinations, Behavioral Changes, Change in Appetite, Change in Libido, Confusion, Depression, Difficulty Concentrating, Hallucinations, Homicidal Ideation, Hopelessness, Irritability, Memory Loss, Mood Swings, Panic Attacks, Paranoia, Suicidal Ideation, Visual Hallucinations, Tactile Hallucinations, Other - Endocrine Endocrine: absent: As Per HPI, Change in Body Appearance, Change in Libido, Cold Intolorance, Deepening of Voice, Excessive Sweating, Fatigue, Flushing, Heat Intolorance, Increase in Ring/Shoe/Hat Size, Palpitations, Polydipsia, Polyphagia, Polyuria, Other - Hematologic/Lymphatic Hematologic: absent: As Per HPI, Easy Bleeding, Easy Bruising, Lymphadenopathy, Other Past Patient History - Infectious Disease Hx of Infectious Diseases: None - Past Medical History & Family History Past Medical History?: Yes - Past Social History Smoking Status: Heavy Smoker > 10 Cigarettes Daily - CARDIAC Hx Congestive Heart Failure: Yes Hx Hypercholesterolemia: Yes Hx Hypertension: Yes - PULMONARY Hx Asthma: Yes - HEENT Hx HEENT Problems: No - RENAL Hx Chronic Kidney Disease: Yes Hx Kidney Stones: Yes - ENDOCRINE/METABOLIC Hx Endocrine Disorders: Yes Hx Diabetes Mellitus Type 1: Yes - INTEGUMENTARY Hx Dermatological Problems: No Other/Comment: buttock abcess - MUSCULOSKELETAL/RHEUMATOLOGICAL Hx Musculoskeletal Disorders: Yes Hx Falls: No - GASTROINTESTINAL HX Swallowing Problems: No - GENITOURINARY/GYNECOLOGICAL Hx Prostate Problems: Yes - PSYCHIATRIC Hx Anxiety: Yes Hx Substance Use: No - SURGICAL HISTORY Hx Cholecystectomy: Yes - ANESTHESIA Hx Anesthesia: Yes Hx Anesthesia Reactions: No Meds Allergies/Adverse Reactions: Allergies Allergy/AdvReac Type Severity Reaction Status Date / Time moxifloxacin HCl Allergy Intermediate RASH Verified 01/27/18 12:28 [From Avelox] - Medications Medications: Current Medications Acetaminophen (Tylenol 325mg Tab) 650 mg PO Q6 PRN PRN Reason: Temp 101 and above and pain Last Admin: 01/28/18 00:00 Dose: 650 mg Albuterol/Ipratropium (Duoneb 3 Mg/0.5 Mg (3 Ml) Ud) 3 ml INH RQ4 [facility] Last Admin: 01/28/18 15:51 Dose: 3 ml Alprazolam (Xanax) 0.25 mg PO Q12H PRN PRN Reason: Anxiety Stop: 02/03/18 22:46 Carvedilol (Coreg) 3.125 mg PO BID [facility] Last Admin: 01/28/18 17:07 Dose: 3.125 mg Azithromycin 500 mg/ Sodium (Chloride) 250 mls @ 250 mls/hr IVPB DAILY [facility] PRN Reason: Protocol Last Admin: 01/28/18 11:24 Dose: 250 mls/hr Ceftriaxone Sodium 1 gm/ (Sodium Chloride) 100 mls @ 100 mls/hr IVPB DAILY [facility] PRN Reason: Protocol Last Admin: 01/28/18 09:57 Dose: 100 mls/hr Dextrose/Sodium Chloride (Dextrose 5%/0.45% Ns 1000 Ml) 1,000 mls @ 100 mls/hr IV .Q10H [facility] Last Admin: 01/28/18 11:17 Dose: 100 mls/hr Potassium Phosphate 15 mmole/ (Sodium Chloride) 255 mls @ 42.5 mls/hr IVPB ONCE ONE Stop: 01/28/18 21:59 Last Admin: 01/28/18 16:02 Dose: 42.5 mls/hr Lorazepam (Ativan) 2 mg IVP Q6H PRN PRN Reason: Anxiety Multivitamins (Hexavitamin) 1 tab PO DAILY [facility] Last Admin: 01/28/18 11:15 Dose: 1 tab Nicotine (Nicoderm Cq) 1 patch TD DAILY [facility] Last Admin: 01/28/18 11:15 Dose: 1 patch Oxycodone/Acetaminophen (Percocet 5/325 Mg Tab) 1 tab PO Q6H PRN PRN Reason: Pain, moderate (4-7) Stop: 01/31/18 08:52 Rosuvastatin Calcium (Crestor) 10 mg PO [facility] Saccharomyces Boulardii (Florastor) 250 mg PO BID [facility] Last Admin: 01/28/18 17:07 Dose: 250 mg Thiamine HCl (Vitamin B1 Tab) 100 mg PO DAILY [facility] Last Admin: 01/28/18 11:15 Dose: 100 mg Physical Exam - Constitutional Appears: Non-toxic, Chronically Ill - Head Exam Head Exam: ATRAUMATIC, NORMAL INSPECTION, NORMOCEPHALIC - Eye Exam Eye Exam: PERRL. absent: Scleral icterus - ENT Exam ENT Exam: Mucous Membranes Dry, Normal External Ear Exam - Neck Exam Neck exam: Negative for: Lymphadenopathy - Respiratory Exam Respiratory Exam: Decreased Breath Sounds, Prolonged Expiratory Phase, Rhonchi - Cardiovascular Exam Cardiovascular Exam: REGULAR RHYTHM, +S1, +S2 - GI/Abdominal Exam GI & Abdominal Exam: Diminished Bowel Sounds, Soft. absent: Tenderness - Rectal Exam Rectal Exam: Deferred - Exam Exam: NORMAL INSPECTION - Extremities Exam Extremities exam: Positive for: pedal pulses present. Negative for: calf tenderness, pedal edema, tenderness - Back Exam Back exam: absent: CVA tenderness (L), CVA tenderness (R) - Neurological Exam Neurological exam: Alert, CN II-XII Intact, Oriented x3, Reflexes Normal - Psychiatric Exam Psychiatric exam: Normal Mood - Skin Skin Exam: Dry Results - Vital Signs Recent Vital Signs: Last Vital Signs Temp 98 F 01/28/18 15:30 Pulse 84 01/28/18 15:30 Resp 22 01/28/18 15:30 BP 150/77 01/28/18 15:30 Pulse Ox 99 01/28/18 15:30 - Labs Result Diagrams: 01/28/18 07:12 01/28/18 07:12 Labs: Laboratory Results - last 24 hr 01/27/18 01/28/18 01/28/18 19:10 07:12 07:12 WBC 14.3 H RBC 3.26 L Hgb 11.6 L Hct 33.5 L MCV 102.8 H MCH 35.6 H MCHC 34.6 RDW 16.0 H Plt Count 89 L MPV 9.5 pO2 38 VBG pH 7.41 VBG pCO2 22 L VBG HCO3 17.6 VBG Total CO2 14.6 L VBG O2 Sat (Calc) 75.1 H VBG Base Excess -8.6 L VBG Potassium 2.3 L* Sodium 140.0 140 Chloride 116.0 H 104 Glucose 70 L Lactate 3.9 H FiO2 21.0 Crit Value Called To Dr ann Crit Value Called By [facility] Crit Value Read Back Y Blood Gas Notified Time 1140 Potassium 3.0 L Carbon Dioxide 28 Anion Gap 11 BUN 16 Creatinine 0.9 Est GFR ( Amer) > 60 Est GFR (Non-Af Amer) > 60 Random Glucose 100 Calcium 7.4 L Total Bilirubin 3.1 H AST 164 H ALT 73 H Alkaline Phosphatase 210 H Total Protein 6.3 Albumin 2.8 L Globulin 3.5 Albumin/Globulin Ratio 0.8 L Venous Blood Potassium 2.3 L* Assessment & Plan - Assessment and Plan (Free Text) Assessment: hx of HTN, asthma, renal calculi, anxiety and herniated discs in the lumbar spine presenting for 1 week hx of cough with fevers\ AWAIT CULTURES CONT IV ANTIBIOTICS
--- NOTE | 2018-01-28 18:37 | CARD ---
APPROVED REPORT EKG Measurement Heart [id number] <Conclusion> Sinus tachycardia with premature atrial complexes with aberrant conduction Otherwise normal ECG
[2018-01-29] MEDS: Albuterol-Ipratrop 3 mg / 0.5 (3 ml) UD INH SCH ×7 (00:21→19:21)
--- NOTE | 2018-01-29 07:38 | HP ---
HISTORY OF PRESENT ILLNESS: A 62-year-old male history of COPD, alcohol abuse, given antibiotics, no improvement that he came to the ER, PHYSICAL EXAMINATION: GENERAL: The patient is awake, alert, and oriented. VITAL SIGNS: Temperature 98, pulse 90. HEENT: Within normal limits. NECK: Supple. CHEST: Symmetrical. HEART: Regular. ABDOMEN: Soft. EXTREMITIES: No edema. ASSESSMENT: pneumonia. The patient on IV antibiotics. Minor Mancilla MD
[2018-01-29] MEDS ORDERED: Potassium Chloride 20 mEq ER Tab PO STA (07:48)
[2018-01-29 07:56] LABS: BASO % 0.4 % (0.0-2.0); EOS # 0.2 K/uL (0.0-0.7); EOS % 2.3 % (0.0-4.0); HEMOGLOBIN 11.9 g/dL (12.0-18.0); LYMPH # 1.3 K/uL (1.0-4.3); LYMPH % 15.2 % (20.0-40.0); MEAN CELL VOLUME 103.2 fL (80.0-94.0); MEAN CORPUSCULAR HEMOGLOBIN 35.8 pg (27.0-31.0); MEAN CORPUSCULAR HGB CONC 34.7 g/dL (33.0-37.0); MEAN PLATELET VOLUME 9.3 fL (7.2-11.7); MONO # 0.9 K/uL (0.0-0.8); MONO % 10.4 % (0.0-10.0); NEUT # 6.4 K/uL (1.8-7.0); NEUT % 71.7 % (50.0-75.0); RBC 3.32 Mil/uL (4.40-5.90); RED CELL DISTRIBUTION WIDTH 15.8 % (11.5-14.5); WHITE BLOOD COUNT 8.9 K/uL (4.8-10.8)
[2018-01-29 08:08] LABS: ALB/GLOB RATIO 0.7 (1.0-2.1); ALBUMIN 2.6 g/dL (3.5-5.0); ALT/SGPT 72 U/L (21-72); AST/SGOT 188 U/L (17-59); BLOOD UREA NITROGEN 15 mg/dL (9-20); CALCIUM 7.9 mg/dl (8.6-10.4); GFR AFRICAN-AMERICAN > 60; GFR NON-AFRICAN AMERICAN > 60
[2018-01-29 08:11] VITALS: RESP 20
[2018-01-29 08:36] LABS: HEPATITIS B SURFACE AG Negative (NEGATIVE)
[2018-01-29 08:41] LABS: HEPATITIS A IGM NEGATIVE (NEGATIVE)
[2018-01-29 08:54] LABS: HEPATITIS C ANTIBODY NEGATIVE (NEGATIVE)
--- NOTE | 2018-01-29 09:04 | CP.PCM.PN ---
Subjective - Date & Time of Evaluation Date of Evaluation: 01/29/18 Time of Evaluation: 09:03 - Subjective Subjective: PGY2 Note for Dr. Larsen; all management as per Dr. Larsen THis patient was seen and evaluated at bedside this AM: states cough and fever feel much better compared to yesterday; denies any other symptoms however is engaging in cocktail chatter and will often change his answers multiple times during interview; ROS unreliable Objective - Vital Signs/Intake and Output Vital Signs (last 24 hours): Temp Pulse Resp BP Pulse Ox 98.1 F 83 20 146/79 100 01/29/18 07:00 01/29/18 08:00 01/29/18 07:00 01/29/18 07:00 01/29/18 07:00 Intake and Output: 01/29/18 01/29/18 06:59 18:59 Output Total 1000 Balance -1000 - Medications Medications: Current Medications Acetaminophen (Tylenol 325mg Tab) 650 mg PO Q6 PRN PRN Reason: Temp 101 and above and pain Last Admin: 01/28/18 22:09 Dose: 650 mg Albuterol/Ipratropium (Duoneb 3 Mg/0.5 Mg (3 Ml) Ud) 3 ml INH RQ4 [facility] Last Admin: 01/29/18 07:14 Dose: 3 ml Alprazolam (Xanax) 0.25 mg PO Q12H PRN PRN Reason: Anxiety Stop: 02/03/18 22:46 Last Admin: 01/28/18 22:08 Dose: 0.25 mg Carvedilol (Coreg) 3.125 mg PO BID [facility] Last Admin: 01/28/18 17:07 Dose: 3.125 mg Guaifenesin/Dextromethorphan (Robitussin Dm) 10 ml PO Q4H PRN PRN Reason: Cough and congestion Azithromycin 500 mg/ Sodium (Chloride) 250 mls @ 250 mls/hr IVPB DAILY [facility] PRN Reason: Protocol Last Admin: 01/28/18 11:24 Dose: 250 mls/hr Ceftriaxone Sodium 1 gm/ (Sodium Chloride) 100 mls @ 100 mls/hr IVPB DAILY [facility] PRN Reason: Protocol Last Admin: 01/28/18 09:57 Dose: 100 mls/hr Dextrose/Sodium Chloride (Dextrose 5%/0.45% Ns 1000 Ml) 1,000 mls @ 100 mls/hr IV .Q10H [facility] Last Admin: 01/28/18 11:17 Dose: 100 mls/hr Lorazepam (Ativan) 2 mg IVP Q6H PRN PRN Reason: Anxiety Last Admin: 01/29/18 03:12 Dose: 2 mg Multivitamins (Hexavitamin) 1 tab PO DAILY [facility] Last Admin: 01/28/18 11:15 Dose: 1 tab Nicotine (Nicoderm Cq) 1 patch TD DAILY [facility] Last Admin: 01/28/18 11:15 Dose: 1 patch Oxycodone/Acetaminophen (Percocet 5/325 Mg Tab) 1 tab PO Q6H PRN PRN Reason: Pain, moderate (4-7) Stop: 01/31/18 08:52 Rosuvastatin Calcium (Crestor) 10 mg PO HS [facility] Last Admin: 01/28/18 22:08 Dose: 10 mg Saccharomyces Boulardii (Florastor) 250 mg PO BID [facility] Last Admin: 01/28/18 17:07 Dose: 250 mg Tamsulosin HCl (Flomax) 0.8 mg PO DAILY [facility] Thiamine HCl (Vitamin B1 Tab) 100 mg PO DAILY [facility] Last Admin: 01/28/18 11:15 Dose: 100 mg - Labs Labs: 01/29/18 07:45 01/29/18 07:45 Assessment and Plan - Assessment and Plan (Free Text) Assessment: - Constitutional Appears: No Acute Distress - Head Exam Head Exam: ATRAUMATIC, NORMOCEPHALIC - Eye Exam Eye Exam: EOMI, Normal appearance - ENT Exam ENT Exam: Mucous Membranes Moist - Respiratory Exam Respiratory Exam: Rhonchi (RLL). absent: Prolonged Expiratory Phase, Respiratory Distress - Cardiovascular Exam Cardiovascular Exam: REGULAR RHYTHM, +S1, +S2 - GI/Abdominal Exam GI & Abdominal Exam: Soft. absent: Tenderness - Neurological Exam Neurological Exam: Alert, Awake, Oriented x3 - Psychiatric Exam Psychiatric exam: Normal Affect, Normal Mood - Skin Skin Exam: Dry, Warm Assessment and Plan - Assessment and Plan (Free Text) Plan: RLL PNA Duonebs q4hrs prn Azithromycin 500mg IV daily started 01/28 Ceftriaxone 1g IV daily started 01/28 Asthma -continue duoneb q4hrs prn -on nc Thrombocytopenia -hold a/c -monitor Hx of BPH -On Flomax daily -Continue to monitor Anxiety xanax 0.25mg q12 prn ativan 2mg IV q6hrs prn for withdrawal HTN -Previous echo shows normal EF of 71 percent -Coreg 3.125 PO BID Hx of EtOH abuse -Pt is unreliable historian; states per history that did not have drink for month but last drink was thursday when I spoke to patient 01/29; will continue CIWA/THiamine/FOlate and PRN ativan Thiamine Multivitamin Herniated Disc L-Spine -Continue home med: percocet 1T PO q6hrs prn GI/DVT ppx -No a/x in setting of thrombocytopenia -florastor 250mg bid -reinforce smoking cessation Case discussed with Dr. Larsen All management as per Dr. Larsen
[2018-01-29] MEDS: Saccharomyces Boulardi 250 mg Cap PO SCH ×2 (09:21→18:03)
[2018-01-29] MEDS: Multiple Vitamins Tab PO SCH (09:22)
[2018-01-29] MEDS: guaiFENesin DM 200 mg-20 mg/10 ml UD PO PRN (09:23)
[2018-01-29 10:12] LABS: HEPATITIS B CORE AB NEGATIVE (NEGATIVE)
[2018-01-29] MEDS: Azithromycin 500 MG in Sodium Chloride 0.9% 250 ML IVPB SCH (10:42)
[2018-01-29] MEDS ORDERED: Potassium Chloride 20 mEq ER Tab PO ONE (18:00)
--- NOTE | 2018-01-29 18:47 | CP.PCM.PN ---
Subjective - Date & Time of Evaluation Date of Evaluation: 01/29/18 Time of Evaluation: 09:00 - Subjective Subjective: improving afeb Objective - Vital Signs/Intake and Output Vital Signs (last 24 hours): Temp Pulse Resp BP Pulse Ox 97.8 F 85 20 132/75 96 01/29/18 15:15 01/29/18 15:15 01/29/18 15:15 01/29/18 15:15 01/29/18 15:15 Intake and Output: 01/29/18 01/29/18 06:59 18:59 Output Total 1000 400 Balance -1000 -400 - Medications Medications: Current Medications Acetaminophen (Tylenol 325mg Tab) 650 mg PO Q6 PRN PRN Reason: Temp 101 and above and pain Last Admin: 01/28/18 22:09 Dose: 650 mg Albuterol/Ipratropium (Duoneb 3 Mg/0.5 Mg (3 Ml) Ud) 3 ml INH RQ4 [facility] Last Admin: 01/29/18 15:27 Dose: 3 ml Alprazolam (Xanax) 0.25 mg PO Q12H PRN PRN Reason: Anxiety Stop: 02/03/18 22:46 Last Admin: 01/28/18 22:08 Dose: 0.25 mg Carvedilol (Coreg) 3.125 mg PO BID [facility] Last Admin: 01/29/18 18:03 Dose: 3.125 mg Guaifenesin/Dextromethorphan (Robitussin Dm) 10 ml PO Q4H PRN PRN Reason: Cough and congestion Last Admin: 01/29/18 09:23 Dose: 10 ml Azithromycin 500 mg/ Sodium (Chloride) 250 mls @ 250 mls/hr IVPB DAILY [facility] PRN Reason: Protocol Last Admin: 01/29/18 10:42 Dose: 250 mls/hr Ceftriaxone Sodium 1 gm/ (Sodium Chloride) 100 mls @ 100 mls/hr IVPB DAILY [facility] PRN Reason: Protocol Last Admin: 01/29/18 09:22 Dose: 100 mls/hr Dextrose/Sodium Chloride (Dextrose 5%/0.45% Ns 1000 Ml) 1,000 mls @ 100 mls/hr IV .Q10H [facility] Last Admin: 01/28/18 11:17 Dose: 100 mls/hr Lorazepam (Ativan) 2 mg IVP Q6H PRN PRN Reason: Anxiety Last Admin: 01/29/18 03:12 Dose: 2 mg Multivitamins (Hexavitamin) 1 tab PO DAILY [facility] Last Admin: 01/29/18 09:22 Dose: 1 tab Nicotine (Nicoderm Cq) 1 patch TD DAILY [facility] Last Admin: 01/29/18 09:27 Dose: 1 patch Oxycodone/Acetaminophen (Percocet 5/325 Mg Tab) 1 tab PO Q6H PRN PRN Reason: Pain, moderate (4-7) Stop: 01/31/18 08:52 Rosuvastatin Calcium (Crestor) 10 mg PO HS [facility] Last Admin: 01/28/18 22:08 Dose: 10 mg Saccharomyces Boulardii (Florastor) 250 mg PO BID [facility] Last Admin: 01/29/18 18:03 Dose: 250 mg Tamsulosin HCl (Flomax) 0.8 mg PO DAILY [facility] Last Admin: 01/29/18 09:21 Dose: 0.8 mg Thiamine HCl (Vitamin B1 Tab) 100 mg PO DAILY [facility] Last Admin: 01/29/18 09:21 Dose: 100 mg - Labs Labs: 01/29/18 07:45 01/29/18 07:45 - Constitutional Appears: Non-toxic, Chronically Ill - Head Exam Head Exam: NORMOCEPHALIC - Eye Exam Eye Exam: PERRL - ENT Exam ENT Exam: Mucous Membranes Dry - Neck Exam Neck Exam: absent: Lymphadenopathy - Respiratory Exam Respiratory Exam: Decreased Breath Sounds - Cardiovascular Exam Cardiovascular Exam: REGULAR RHYTHM. absent: Clicks - GI/Abdominal Exam GI & Abdominal Exam: Distended - Rectal Exam Rectal Exam: Deferred Assessment and Plan - Assessment and Plan (Free Text) Plan: cont iv antibiotics
[2018-01-29] MEDS: Dextrose 5%/0.45% NS 1,000 ML IV SCH (21:40)
[2018-01-30] MEDS: Albuterol-Ipratrop 3 mg / 0.5 (3 ml) UD INH SCH ×7 (00:55→23:45)
[2018-01-30 06:39] LABS: BASO # 0.1 K/uL (0.0-0.2); BASO % 0.7 % (0.0-2.0); EOS # 0.2 K/uL (0.0-0.7); EOS % 2.8 % (0.0-4.0); HEMOGLOBIN 11.6 g/dL (12.0-18.0); LYMPH # 1.6 K/uL (1.0-4.3); LYMPH % 21.9 % (20.0-40.0); MEAN CELL VOLUME 102.9 fL (80.0-94.0); MEAN CORPUSCULAR HEMOGLOBIN 35.4 pg (27.0-31.0); MEAN CORPUSCULAR HGB CONC 34.4 g/dL (33.0-37.0); MEAN PLATELET VOLUME 8.9 fL (7.2-11.7); MONO # 1.1 K/uL (0.0-0.8); MONO % 15.6 % (0.0-10.0); NEUT # 4.2 K/uL (1.8-7.0); RBC 3.29 Mil/uL (4.40-5.90); WHITE BLOOD COUNT 7.2 K/uL (4.8-10.8)
[2018-01-30 07:33] LABS: ALB/GLOB RATIO 0.7 (1.0-2.1); ALBUMIN 2.5 g/dL (3.5-5.0); ALT/SGPT 69 U/L (21-72); AST/SGOT 163 U/L (17-59); BLOOD UREA NITROGEN 16 mg/dL (9-20); CALCIUM 8.2 mg/dl (8.6-10.4); GFR AFRICAN-AMERICAN > 60; GFR NON-AFRICAN AMERICAN > 60
[2018-01-30] MEDS: Saccharomyces Boulardi 250 mg Cap PO SCH ×2 (09:20→18:14)
[2018-01-30] MEDS: Multiple Vitamins Tab PO SCH (09:21)
[2018-01-30] MEDS: Azithromycin 500 MG in Sodium Chloride 0.9% 250 ML IVPB SCH (11:24)
[2018-01-30 16:34] VITALS: O2SAT 98
[2018-01-31 01:46] VITALS: BP 166/81; TEMP 97.6
[2018-01-31] MEDS: Albuterol-Ipratrop 3 mg / 0.5 (3 ml) UD INH SCH (03:16)
[2018-01-31] MEDS: guaiFENesin DM 200 mg-20 mg/10 ml UD PO PRN (03:40)
[2018-01-31 04:50] VITALS: PULSE 88
--- NOTE | 2018-01-31 08:32 | CP.PCM.DIS ---
Provider - Provider Date of Admission: 01/27/18 17:34 Attending physician: Minor Ann MD Consults: DESTIN Cali Time Spent in preparation of Discharge (in minutes): 10 Hospital Course - Lab Results Lab Results: Micro Results 01/27/18 13:30 Blood Blood Culture - Preliminary NO GROWTH AFTER 3 DAYS 01/27/18 14:00 Blood Blood Culture - Preliminary NO GROWTH AFTER 3 DAYS 01/29/18 10:23 Sputum Gram Stain - Final 01/29/18 10:23 Sputum Sputum Culture - Preliminary NORMAL ORAL ADRIANA 01/27/18 14:15 Urine Urine Culture - Final <10,000 CFU/ML. MULTIPLE SPECIES. PROBABLE CONTAMINATION. Most Recent Lab Values WBC 7.2 K/uL (4.8-10.8) 01/30/18 06:33 RBC 3.29 Mil/uL (4.40-5.90) L 01/30/18 06:33 Hgb 11.6 g/dL (12.0-18.0) L 01/30/18 06:33 Hct 33.9 % (35.0-51.0) L 01/30/18 06:33 MCV 102.9 fL (80.0-94.0) H 01/30/18 06:33 MCH 35.4 pg (27.0-31.0) H 01/30/18 06:33 MCHC 34.4 g/dL (33.0-37.0) 01/30/18 06:33 RDW 16.0 % (11.5-14.5) H 01/30/18 06:33 Plt Count 88 K/uL (130-400) L 01/30/18 06:33 MPV 8.9 fL (7.2-11.7) 01/30/18 06:33 Neut % (Auto) 59.0 % (50.0-75.0) 01/30/18 06:33 Lymph % (Auto) 21.9 % (20.0-40.0) 01/30/18 06:33 [place] % (Auto) 15.6 % (0.0-10.0) H 01/30/18 06:33 Eos % (Auto) 2.8 % (0.0-4.0) 01/30/18 06:33 Baso % (Auto) 0.7 % (0.0-2.0) 01/30/18 06:33 Neut # (Auto) 4.2 K/uL (1.8-7.0) 01/30/18 06:33 Lymph # (Auto) 1.6 K/uL (1.0-4.3) 01/30/18 06:33 [place] # (Auto) 1.1 K/uL (0.0-0.8) H 01/30/18 06:33 Eos # (Auto) 0.2 K/uL (0.0-0.7) 01/30/18 06:33 Baso # (Auto) 0.1 K/uL (0.0-0.2) 01/30/18 06:33 Neutrophils % (Manual) 70 % (50-75) 01/27/18 13:40 Band Neutrophils % 20 % (0-2) H* 01/27/18 13:40 Lymphocytes % (Manual) 5 % (20-40) L 01/27/18 13:40 Monocytes % (Manual) 5 % (0-10) 01/27/18 13:40 Platelet Estimate Normal (NORMAL) 01/27/18 13:40 pO2 38 mm/Hg (30-55) 01/27/18 19:10 VBG pH 7.41 (7.32-7.43) 01/27/18 19:10 VBG pCO2 22 mmHg (40-60) L 01/27/18 19:10 VBG HCO3 17.6 mmol/L 01/27/18 19:10 VBG Total CO2 14.6 mmol/L (22-28) L 01/27/18 19:10 VBG O2 Sat (Calc) 75.1 % (40-65) H 01/27/18 19:10 VBG Base Excess -8.6 mmol/L (0.0-2.0) L 01/27/18 19:10 VBG Potassium 2.3 mmol/L (3.6-5.2) L* 01/27/18 19:10 Sodium 140.0 mmol/l (132-148) 01/27/18 19:10 Chloride 116.0 mmol/L (98-107) H 01/27/18 19:10 Glucose 70 mg/dl (75-110) L 01/27/18 19:10 Lactate 3.9 mmol/L (0.7-2.1) H 01/27/18 19:10 FiO2 21.0 % 01/27/18 19:10 Crit Value Called To Dr ann 01/27/18 19:10 Crit Value Called By [facility] 01/27/18 19:10 Crit Value Read Back Y 01/27/18 19:10 Blood Gas Notified Time 1140 01/27/18 19:10 Sodium 140 mmol/L (132-148) 01/30/18 06:33 Potassium 3.8 mmol/L (3.6-5.2) 01/30/18 06:33 Chloride 105 mmol/L (98-107) 01/30/18 06:33 Carbon Dioxide 29 mmol/L (22-30) 01/30/18 06:33 Anion Gap 9 (10-20) L 01/30/18 06:33 BUN 16 mg/dL (9-20) 01/30/18 06:33 Creatinine 0.9 mg/dL (0.8-1.5) 01/30/18 06:33 Est GFR ( Amer) > 60 01/30/18 06:33 Est GFR (Non-Af Amer) > 60 01/30/18 06:33 POC Glucose (mg/dL) 104 mg/dL (65-110) 01/27/18 12:32 Random Glucose 86 mg/dL (75-110) 01/30/18 06:33 Calcium 8.2 mg/dl (8.6-10.4) L 01/30/18 06:33 Phosphorus 1.8 mg/dL (2.5-4.5) L 01/29/18 07:45 Magnesium 1.7 mg/dL (1.6-2.3) 01/29/18 07:45 Total Bilirubin 2.3 mg/dL (0.2-1.3) H 01/30/18 06:33 AST 163 U/L (17-59) H 01/30/18 06:33 ALT 69 U/L (21-72) 01/30/18 06:33 Alkaline Phosphatase 238 U/L (38-126) H 01/30/18 06:33 Total Creatine Kinase 250 U/L (55-170) H 01/27/18 15:48 CK-MB (Mass) 3.77 ng/mL (0.0-3.38) H 01/27/18 15:48 Troponin I 0.0130 ng/mL (0.00-0.120) 01/27/18 15:48 NT-Pro-B Natriuret Pep 226 pg/mL (0-900) 01/27/18 15:48 Total Protein 6.2 g/dL (6.3-8.3) L 01/30/18 06:33 Albumin 2.5 g/dL (3.5-5.0) L 01/30/18 06:33 Globulin 3.6 gm/dL (2.2-3.9) 01/30/18 06:33 Albumin/Globulin Ratio 0.7 (1.0-2.1) L 01/30/18 06:33 Prostate Specific Ag 1.72 ng/mL (0.00-4.0) 01/29/18 07:45 Venous Blood Potassium 2.3 mmol/L (3.6-5.2) L* 01/27/18 19:10 Urine Color [place] (YELLOW) 01/27/18 14:15 Urine Clarity Clear (Clear) 01/27/18 14:15 Urine pH 6.0 (5.0-8.0) 01/27/18 14:15 Ur Specific [place] 1.016 (1.003-1.030) 01/27/18 14:15 Urine Protein Negative mg/dL (NEGATIVE) 01/27/18 14:15 Urine Glucose (UA) Normal mg/dL (Normal) 01/27/18 14:15 Urine Ketones Trace mg/dL (NEGATIVE) 01/27/18 14:15 Urine Blood 1+ (NEGATIVE) H 01/27/18 14:15 Urine Nitrate Negative (NEGATIVE) 01/27/18 14:15 Urine Bilirubin Negative (NEGATIVE) 01/27/18 14:15 Urine Urobilinogen 4.0 mg/dL (0.2-1.0) 01/27/18 14:15 Ur Leukocyte Esterase 2+ Juan/uL (Negative) H 01/27/18 14:15 Urine WBC (Auto) 34 /hpf (0-5) H 01/27/18 14:15 Urine RBC (Auto) 8 /hpf (0-3) H 01/27/18 14:15 Ur Squamous Epith Cells 1 /hpf (0-5) 01/27/18 14:15 Urine Bacteria Rare (<OCC) 01/27/18 14:15 RPR Nonreactive (NONREACTIVE) 01/29/18 11:11 Hepatitis A IgM Ab Negative (NEGATIVE) 01/29/18 07:48 Hep Bs Antigen Negative (NEGATIVE) 01/29/18 07:48 Hep B Core IgM Ab Negative (NEGATIVE) 01/29/18 07:48 Hepatitis C Antibody Negative (NEGATIVE) 01/29/18 07:48 HIV 1&2 Antibody Screen Negative (NEGATIVE) 01/29/18 07:45 - Hospital Course Hospital Course: As per ED admission documentation 62 y/o female presents to ED with c/o productive cough, fever, chills and right sided mid back pain for 2 days. Patient has h/o chronic alcoholism, states he has not been eating fell and feels generalized weakness. He denies vomiting, diarrhea, dysuria, flank pain, abdominal pain, vomiting, diarrhea, chest pain or any other complaints. Hospital course Patient was admitted and treated for pneumonia with IV azithromycin and rocephin. In the nitro worker of 01/31 the patient decided he wanted to leave the hospital. He decided to sign out against medical advice because he wanted to see his . He was given a prescription for Azithromycin for 7 more days and instructed to follow up with Dr. Ann in his office this week. Discharge Exam - Additional Findings Additional findings: no exam, patient left AMA Discharge Plan - Discharge Medications Prescriptions: Azithromycin [Zithromax] 250 mg PO DAILY #7 tab - Follow Up Plan Condition: FAIR Disposition: AGAINST MEDICAL ADVICE Instructions: Sepsis (DC), Sepsis (GEN), Leukocytosis (DC), Leukocytosis (GEN)
--- NOTE | 2018-02-01 08:46 | PN ---
DATE: 01/30/2018 SUBJECTIVE: Mr. Harley was given IV antibiotics, increased p.o. intake. We will discontinue IV fluids, maintained on IV antibiotics. Minor Mancilla MD [facility] # [id number]
== END 2018-01-31 04:40 | disposition left against medical advice (07) | DRG 89 ==
LOC: C.ER 12:26 → C.9E 17:34 → C.6T 18:41
PROVIDERS: ADMIT Internal Medicine Pulmonary Disease; ATTEND Internal Medicine Pulmonary Disease
DX: J18.9 Pneumonia, unspecified organism (principal); J44.0 Chronic obstructive pulmonary disease with (acute) lower respiratory infection; E11.22 Type 2 diabetes mellitus with diabetic chronic kidney disease; I13.0 Hypertensive heart and chronic kidney disease with heart failure and stage 1 through stage 4 chronic kidney disease, or unspecified chronic kidney disease; I50.9 Heart failure, unspecified; N18.9 Chronic kidney disease, unspecified; Z79.4 Long term (current) use of insulin; Z87.442 Personal history of urinary calculi; F17.210 Nicotine dependence, cigarettes, uncomplicated; F10.20 Alcohol dependence, uncomplicated; E78.00 Pure hypercholesterolemia, unspecified; G89.29 Other chronic pain

== ENCOUNTER 2018-02-08 14:35 | Emergency (ER) | payer MEDICAID ==
[2018-02-08 14:36] VITALS: BMI 37.0
[2018-02-08 15:07] VITALS: PULSE 100; RESP 20; TEMP 98
--- NOTE | 2018-02-08 16:20 | RAD ---
Chest x-ray single frontal view History: Leg edema. Comparison: 01/27/2018 Findings: Mild venous congestion. Biapical pleural thickening with upper lobe granulomatous changes. Mild patchy increased markings at the left lung base. Heart size within normal limits. Degenerative changes in the spine. Impression: Mild venous congestion. Biapical pleural thickening with upper lobe granulomatous changes. Mild patchy increased markings at the left lung base.
[2018-02-08 16:26] LABS: BASO # 0.1 K/uL (0.0-0.2); BASO % 1.5 % (0.0-2.0); EOS # 0.1 K/uL (0.0-0.7); EOS % 1.8 % (0.0-4.0); LYMPH # 1.8 K/uL (1.0-4.3); LYMPH % 24.8 % (20.0-40.0); MEAN CORPUSCULAR HEMOGLOBIN 35.6 pg (27.0-31.0); MONO # 0.7 K/uL (0.0-0.8); MONO % 9.3 % (0.0-10.0); NEUT # 4.5 K/uL (1.8-7.0); NEUT % 62.6 % (50.0-75.0); RBC 3.08 Mil/uL (4.40-5.90); RED CELL DISTRIBUTION WIDTH 15.6 % (11.5-14.5); WHITE BLOOD COUNT 7.2 K/uL (4.8-10.8)
--- NOTE | 2018-02-08 16:26 | C.PDOC ---
History Of Present Illness 62 year old male presents to the ED for evaluation of swelling to his bilateral lower extremities for the last 3-4 days. Patient is s/p recent admission at [facility] for pneumonia; admitted on 01/27 and discharged on 01/31. Patient denies current fever, chills, shortness of breath, cough, chest pain, abdominal pain, nausea, vomiting, diarrhea. Time Seen by Provider: 02/08/18 14:46 Chief Complaint (Nursing): Lower Extremity Problem/Injury History Per: Patient History/Exam Limitations: no limitations Onset/Duration Of Symptoms: Days (3-4) Current Symptoms Are (Timing): Still Present Severity: Mild Additional History Per: Patient Past Medical History Reviewed: Historical Data, Nursing Documentation, Vital Signs Vital Signs: Last Vital Signs Temp 98 F 02/08/18 15:02 Pulse 100 H 02/08/18 17:39 Resp 20 02/08/18 17:39 BP 162/91 H 02/08/18 17:39 Pulse Ox 94 L 02/10/18 10:08 - Medical History PMH: Anxiety, Asthma, CHF, HTN, Hypercholesterolemia, Kidney Stones Comment Only: Back Problems (Herniated disc) Surgical History: Cholecystectomy - [facility] Procedures ALCOHOL DETOXIFICATION (06/26/13) CLOSED ENDOSCOPIC BIOPSY OF LARGE INTESTINE (08/30/13) DILATION OF RIGHT URETER WITH INTRALUMINAL DEVICE, ENDO (06/04/17) INSERTION OF INFUSION DEV INTO SUP VENA CAVA, PERC APPROACH (06/04/17) NAIL REMOVAL (02/02/13) ULTRASONOGRAPHY OF SUPERIOR VENA CAVA, GUIDANCE (06/04/17) Family History: States: No Known Family Hx - Social History Hx Tobacco Use: Yes Hx Alcohol Use: No Hx Substance Use: No - Immunization History Hx Tetanus Toxoid Vaccination: Yes Hx Influenza Vaccination: Yes Hx Pneumococcal Vaccination: Yes Review Of Systems Constitutional: Negative for: Fever, Chills Cardiovascular: Negative for: Chest Pain, Palpitations Respiratory: Negative for: Cough, Shortness of Breath Gastrointestinal: Negative for: Nausea, Vomiting, Abdominal Pain Skin: Positive for: Other (bilateral leg swelling ). Negative for: Rash Physical Exam - Physical Exam Appears: Well, Non-toxic, Other (comfortable, speaking in full sentences ) Skin: Normal Color, Warm, Dry Eye(s): bilateral: Normal Inspection Oral Mucosa: Moist Neck: Supple Cardiovascular: Rhythm Regular Respiratory: Normal Breath Sounds, No Rales, No Rhonchi, No Wheezing Gastrointestinal/Abdominal: Normal Exam, Bowel Sounds, Soft, No Tenderness Extremity: Normal ROM, Pedal Edema (+2 pitting edema to bilateral lower extremities ), No Calf Tenderness, No Deformity Pulses: Left Dorsalis Pedis: Normal, Right Dorsalis Pedis: Normal Neurological/Psych: Oriented x3 ED Course And Treatment - Laboratory Results Result Diagrams: 02/08/18 16:23 02/08/18 16:23 O2 Sat by Pulse Oximetry: 94 (RA) Pulse Ox Interpretation: Normal - Other Rad CXR X-Ray: Interpreted by Me, Viewed By Me Interpretation: no infiltrates/effusions Progress Note: Bloodwork, CXR, and venous doppler ordered and reviewed. Doppler neg for acute DVT as per vacular tech. Reevaluation Time: 17:30 Reassessment Condition: Improved (Patient reassessed, is resting comfortably, in no pain/distress. CXR (-) for infiltrates/effusions, BNP neg, doppler neg for DVT. Patient given Rx for Lasix, and he also requests Rx for antibiotics given to him at prior discharge (he lost them). [facility] records reviewed, and patient given Rx for Azithromycin. He was instructed to follow up with PMD in 1 -2 days, and understands he should return to ED if symptoms worsen.) Disposition Counseled Patient/Family Regarding: Studies Performed, Diagnosis, Need For Followup, Rx Given - Disposition Referrals: Minor Rios MD [Staff Provider] - Disposition: HOME/ ROUTINE Disposition Time: 17:30 Condition: STABLE Additional Instructions: FOLLOW UP WITH DR RIOS IN 1-2 DAYS USE MEDICATIONS DIRECTED RETURN TO ER IF SYMPTOMS WORSEN SEGUIMIENTO CON EL DR. RIOS EN 1-2 GEORGES USE MEDICAMENTOS SEGN LO INDICADO VOLVER A ER SI LOS SNTOMAS EMPEORAN Prescriptions: Azithromycin [Zithromax] 250 mg PO DAILY #6 tab Furosemide [Lasix] 20 mg PO DAILY #30 tab Instructions: Dependent Edema (DC) Forms: [facility] (Greenlandic) Print Language: DIVEHI - POA Present On Arrival: None - Clinical Impression Clinical Impression: Leg edema - Scribe Statement The provider has reviewed the documentation as recorded by the Scribe (Joy Tam) Provider Attestation: All medical record entries made by the Scribe were at my direction and personally dictated by me. I have reviewed the chart and agree that the record accurately reflects my personal performance of the history, physical exam, medical decision making, and the department course for this patient. I have also personally directed, reviewed, and agree with the discharge instructions and disposition.
[2018-02-08 16:28] LABS: MEAN CELL VOLUME 104.9 fL (80.0-94.0)
[2018-02-08 16:36] LABS: INR 1.3; PROTHROMBIN TIME 14.2 SECONDS (9.7-12.2)
[2018-02-08 16:40] LABS: ALB/GLOB RATIO 0.7 (1.0-2.1); ALBUMIN 2.8 g/dL (3.5-5.0); ALT/SGPT 58 U/L (21-72); AST/SGOT 152 U/L (17-59); BLOOD UREA NITROGEN 14 mg/dL (9-20); CALCIUM 8.4 mg/dl (8.6-10.4); GFR AFRICAN-AMERICAN > 60; GFR NON-AFRICAN AMERICAN > 60
[2018-02-08 16:48] LABS: B-TYPE NATRIURETIC PEPTIDE 131 pg/mL (0-900); CK-MB 0.63 ng/mL (0.0-3.38)
[2018-02-08 17:39] VITALS: BP 162/91
--- NOTE | 2018-02-09 12:48 | VASCLAB ---
PROCEDURE: Lower Extremity Venous Duplex Exam. HISTORY: B/L LEG SWELLING. R/O DVT PRIORS: Last exam 04/22/2017, normal. TECHNIQUE: Bilateral common femoral, femoral, popliteal and posterior tibial, peroneal and great saphenous veins were evaluated. Flow was assessed with color Doppler, compressibility, assessment of phasic flow and augmentation response. Report prepared by MEGAN Meeks FINDINGS: RIGHT: 1. Common Femoral Vein: 1.1. Compressibility - Fully compressible: Thrombus - None : Flow - Phasic: Augmentation -Normal: Reflux - None. 2. Femoral Vein: 2.1. Compressibility - Fully compressible: Thrombus - None : Flow - Phasic: Augmentation -Normal: Reflux - None. 3. Popliteal Vein: 3.1. Compressibility - Fully compressible: Thrombus - None : Flow - Phasic: Augmentation -Normal: Reflux - None. 4. Posterior Tibial Vein: 4.1. Compressibility - Fully compressible: Thrombus - None: Flow - Phasic: Augmentation -Normal: Reflux - None. 5. Peroneal Vein: 5.1. Compressibility - Fully compressible: Thrombus - None: Flow - Phasic: Augmentation -Normal: Reflux - None. 6. Great Saphenous Vein: 6.1. Compressibility - Fully compressible: Thrombus - None: Flow - Phasic: Augmentation - Normal: Reflux - None. LEFT: 1. Common Femoral Vein: 1.1. Compressibility - Fully compressible: Thrombus - None: Flow - Phasic: Augmentation -Normal: Reflux - None. 2. Femoral Vein: 2.1. Compressibility - Fully compressible: Thrombus - None: Flow - Phasic: Augmentation -Normal: Reflux - None. 3. Popliteal Vein: 3.1. Compressibility - Fully compressible: Thrombus - None : Flow - Phasic: Augmentation -Normal: Reflux - None. 4. Posterior Tibial Vein: 4.1. Compressibility - Fully compressible: Thrombus - None: Flow - Phasic: Augmentation -Normal: Reflux - None. 5. Peroneal Vein: 5.1. Compressibility - Fully compressible: Thrombus - None: Flow - Phasic: Augmentation -Normal: Reflux - None. 6. Great Saphenous Vein: 6.1. Compressibility - Fully compressible: Thrombus - None: Flow - Phasic: Augmentation - Normal: Reflux - None. OTHER FINDINGS: Right: None significant. Left: None significant. IMPRESSION: Right: No evidence of deep or superficial vein thrombosis of the right lower extremity. Normal valve function noted of the right side. Left: No evidence of deep or superficial vein thrombosis of the left lower extremity. Normal valve function noted of the left side.
[2018-02-10 10:08] VITALS: O2SAT 94
== END 2018-02-08 17:56 | disposition home or self-care (01) ==
LOC: C.ER 14:35
DX: R60.0 Localized edema (principal)

== ENCOUNTER 2018-02-25 13:06 | Emergency (ER) | payer MEDICAID ==
[2018-02-25 13:18] VITALS: BMI 36.8
[2018-02-25 13:21] VITALS: RESP 18
[2018-02-25] MEDS ORDERED: Multivitamin (MVI) 10 ML, Thiamine 100 MG, Folic Acid 1 MG in Sodium Chloride 0.9% 1,00... IV STA (13:51)
[2018-02-25 14:47] LABS: BASO % 0.6 % (0.0-2.0); EOS # 0.1 K/uL (0.0-0.7); HEMOGLOBIN 12.7 g/dL (12.0-18.0); LYMPH # 0.4 K/uL (1.0-4.3); LYMPH % 6.8 % (20.0-40.0); MEAN CORPUSCULAR HEMOGLOBIN 36.7 pg (27.0-31.0); MEAN CORPUSCULAR HGB CONC 35.3 g/dL (33.0-37.0); MEAN PLATELET VOLUME 8.4 fL (7.2-11.7); MONO # 0.3 K/uL (0.0-0.8); MONO % 4.2 % (0.0-10.0); NEUT # 5.6 K/uL (1.8-7.0); NEUT % 87.4 % (50.0-75.0); RBC 3.47 Mil/uL (4.40-5.90); RED CELL DISTRIBUTION WIDTH 14.4 % (11.5-14.5); WHITE BLOOD COUNT 6.4 K/uL (4.8-10.8)
[2018-02-25 14:59] LABS: INR 1.2
[2018-02-25 15:00] LABS: PLATELET COUNT 102 K/uL (130-400)
[2018-02-25 15:04] LABS: ALB/GLOB RATIO 0.8 (1.0-2.1); ALBUMIN 3.4 g/dL (3.5-5.0); ALT/SGPT 55 U/L (21-72); AST/SGOT 152 U/L (17-59); BLOOD UREA NITROGEN 13 mg/dL (9-20); CALCIUM 9.2 mg/dl (8.6-10.4); GFR AFRICAN-AMERICAN > 60; GFR NON-AFRICAN AMERICAN > 60; LIPASE 168 U/L (23-300)
--- NOTE | 2018-02-25 15:10 | C.PDOC ---
History Of Present Illness Pt states that he has been abusing alcohol. He c/o some N/V/D. Time Seen by Provider: 02/25/18 13:38 Chief Complaint (Nursing): GI Problem History Per: Patient Onset/Duration Of Symptoms: Days Current Symptoms Are (Timing): Still Present Context: Other (Alcohol abuse) Severity: Moderate Quality Of Discomfort: denies: "Pain" Associated Symptoms: Nausea, Vomiting, Diarrhea Alleviating Factors: None Recent travel outside of the [place]: No Additional History Per: Prior Records Past Medical History Reviewed: Historical Data, Nursing Documentation, Vital Signs Vital Signs: Last Vital Signs Temp 98.3 F 02/25/18 15:48 Pulse 108 H 02/25/18 15:48 Resp 18 02/25/18 15:48 BP 189/98 H 02/25/18 15:48 Pulse Ox 95 02/25/18 15:48 - Medical History PMH: Anxiety, Asthma, CHF, HTN, Hypercholesterolemia, Kidney Stones Comment Only: Back Problems (Herniated disc) Surgical History: Cholecystectomy - [facility] Procedures ALCOHOL DETOXIFICATION (06/26/13) CLOSED ENDOSCOPIC BIOPSY OF LARGE INTESTINE (08/30/13) DILATION OF RIGHT URETER WITH INTRALUMINAL DEVICE, ENDO (06/04/17) INSERTION OF INFUSION DEV INTO SUP VENA CAVA, PERC APPROACH (06/04/17) NAIL REMOVAL (02/02/13) ULTRASONOGRAPHY OF SUPERIOR VENA CAVA, GUIDANCE (06/04/17) Family History: States: Unknown Family Hx - Social History Hx Tobacco Use: Yes Hx Alcohol Use: Yes Hx Substance Use: No - Immunization History Hx Tetanus Toxoid Vaccination: Yes Hx Influenza Vaccination: Yes Hx Pneumococcal Vaccination: Yes Review Of Systems Except As Marked, All Systems Reviewed And Found Negative. Constitutional: Negative for: Fever Cardiovascular: Negative for: Chest Pain Respiratory: Negative for: Shortness of Breath, Hemoptysis Gastrointestinal: Positive for: Nausea, Vomiting, Diarrhea. Negative for: Abdominal Pain, Melena, Hematochezia, Hematemesis Genitourinary: Negative for: Dysuria Musculoskeletal: Negative for: Neck Pain, Back Pain Skin: Negative for: Rash Neurological: Negative for: Weakness, Numbness Psych: Negative for: Psychosis, Suicidal ideation, Withdrawal Physical Exam - Physical Exam Appears: Non-toxic, No Acute Distress Skin: Warm, Dry Head: Atraumatic, Normacephalic Eye(s): bilateral: PERRL, EOMI Neck: Normal ROM, Supple Cardiovascular: Rhythm Regular Respiratory: Normal Breath Sounds, No Accessory Muscle Use Gastrointestinal/Abdominal: Soft, No Tenderness Back: No CVA Tenderness Extremity: Normal ROM, No Calf Tenderness Neurological/Psych: Oriented x3, Normal Motor, Normal Sensation ED Course And Treatment - Laboratory Results Result Diagrams: 02/25/18 14:41 02/25/18 14:41 O2 Sat by Pulse Oximetry: 96 Pulse Ox Interpretation: Normal Progress Note: Pt states that he did not take his BP med today, but he just took it in the ED. Pt is declining detox. He states that he feels much better and wants to go home. Reassessment Condition: Improved Disposition Counseled Patient/Family Regarding: Studies Performed, Diagnosis, Need For Followup, Rx Given, Smoking Cessation - Disposition Referrals: Kyle Mancilla MD [Medical Doctor] - Disposition: HOME/ ROUTINE Disposition Time: 16:58 Condition: IMPROVED Additional Instructions: Avoid alcohol. Follow up with your doctor within 1 week for further evaluation and treatment. Return to the ER if you develop shaking, seizure, worsening of symptoms or if you have any other concerns. Prescriptions: Multivit,Calc,Mins/Folic Acid [One-A-Day Proactive 65 Plus Tb] 1 tab PO DAILY # 90 tablet Instructions: Alcohol Abuse and Alcoholism (DC) Forms: [facility] (Romansh) - Clinical Impression Clinical Impression: Alcohol abuse, Nausea vomiting and diarrhea
[2018-02-25 15:27] LABS: BASOPHIL 1 % (0-2); EOSINOPHIL 1 % (0-4); LYMPHOCYTE 5 % (20-40); MONOCYTE 2 % (0-10); NEUTROPHIL 91 % (50-75); PLATELET ESTIMATE DECREASED (NORMAL); TOTAL CELLS COUNTED 100
[2018-02-25 17:04] VITALS: O2SAT 96
[2018-02-25 17:16] VITALS: BP 171/96; PULSE 101; TEMP 98.4
== END 2018-02-25 17:27 | disposition home or self-care (01) ==
LOC: C.ER 13:06
DX: R11.2 Nausea with vomiting, unspecified (principal); R19.7 Diarrhea, unspecified; F10.10 Alcohol abuse, uncomplicated; Y90.9 Presence of alcohol in blood, level not specified
CPT/HCPCS: 80053; 83690; 85025; 85610; 85730; 96365; 96366; 96375; 99285; C9113; J2405; J3411; J7030

== ENCOUNTER 2018-03-03 09:34 | Emergency (ER) | payer MEDICAID ==
[2018-03-03 09:35] VITALS: BMI 36.8
[2018-03-03 09:51] VITALS: BP 162/106; PULSE 91; RESP 18; TEMP 98.2; O2SAT 95
[2018-03-03] MEDS ORDERED: Phenylephrine 1% Nasal Spray (15 ml) NAS STA (09:54)
[2018-03-03] MEDS ORDERED: Phenylephrine 1% Nasal Spray (15 ml) ONE (09:57)
[2018-03-03] MEDS ORDERED: Amoxicillin-Clav 875-125 mg Tab PO STA (10:03)
--- NOTE | 2018-03-03 10:07 | C.PDOC ---
History Of Present Illness 62 y/o male brought in by ambulance for epistaxis from the left nostril. Patient states it started last night and stopped, but then resumed bleeding around 4:00 AM this morning. He denies any trauma or prior episodes of epistaxis. PMHx is significant for HTN, COPD, anxiety, depression, and CHF. Patient denies use of blood thinners. Time Seen by Provider: 03/03/18 09:45 Chief Complaint (Nursing): ENT Problem History Per: Patient History/Exam Limitations: None Onset/Duration Of Symptoms: Intermittent Episodes Current Symptoms Are (Timing): Still Present Symptoms Have Been: Episodic Anticoagulant/Antiplatlet Use?: No Past Medical History Reviewed: Historical Data, Nursing Documentation, Vital Signs Vital Signs: Last Vital Signs Temp 98.2 F 03/03/18 09:45 Pulse 91 H 03/03/18 09:45 Resp 18 03/03/18 09:45 BP 162/106 H 03/03/18 09:45 Pulse Ox 95 03/03/18 10:06 - Medical History PMH: Anxiety, Asthma, Back Problems (Herniated disc), CHF, Depression, HTN, Hypercholesterolemia, Kidney Stones, Chronic Kidney Disease Surgical History: Cholecystectomy - [facility] Procedures ALCOHOL DETOXIFICATION (06/26/13) CLOSED ENDOSCOPIC BIOPSY OF LARGE INTESTINE (08/30/13) DILATION OF RIGHT URETER WITH INTRALUMINAL DEVICE, ENDO (06/04/17) INSERTION OF INFUSION DEV INTO SUP VENA CAVA, PERC APPROACH (06/04/17) NAIL REMOVAL (02/02/13) ULTRASONOGRAPHY OF SUPERIOR VENA CAVA, GUIDANCE (06/04/17) Family History: States: Unknown Family Hx - Social History Hx Tobacco Use: Yes Hx Alcohol Use: Yes (BOUTS OF ALCOHOLISM) Hx Substance Use: No - Immunization History Hx Tetanus Toxoid Vaccination: Yes Hx Influenza Vaccination: Yes Hx Pneumococcal Vaccination: Yes Review Of Systems Except As Marked, All Systems Reviewed And Found Negative. ENT: Positive for: Other (Nosebleed, left nare) Cardiovascular: Negative for: Light Headedness Respiratory: Negative for: Shortness of Breath Neurological: Negative for: Dizziness Physical Exam - Physical Exam Appears: Non-toxic, Other (Appears mildly uncomfortable) Skin: Normal Color, Warm, Dry Head: Atraumatic, Normacephalic Eye(s): bilateral: Normal Inspection, PERRL, EOMI Nose: Normal (Right nare), Epistaxis (Mild epistaxis from the left nare) Oral Mucosa: Moist Throat: Normal (with no blood in the oropharynx) Neck: Normal ROM, Supple Chest: Symmetrical Cardiovascular: Rhythm Regular, No Murmur Respiratory: Normal Breath Sounds, No Accessory Muscle Use, No Wheezing, Other ( Speaking in complete sentences) Neurological/Psych: Oriented x3, Normal Speech ED Course And Treatment O2 Sat by Pulse Oximetry: 95 (RA) Pulse Ox Interpretation: Normal Progress Note: Sprayed olive-synephrine in the left nostril. Packed rhino-rocket to the left nare, which patient tolerated well. Patient given PO Augmentin and instructed to follow up with Dr. Cramer. Provided with prescription for Augmentin and advised to take medication as prescribed. There is agreement to discharge plan. Advised to return to the ER for any worsening symptoms or uncontrollable bleeding. Disposition Counseled Patient/Family Regarding: Diagnosis, Need For Followup, Rx Given - Disposition Referrals: Ulysses Cramer MD [Staff Provider] - Kyle Mancilla MD [Medical Doctor] - Disposition: HOME/ ROUTINE Disposition Time: 10:15 Condition: STABLE Additional Instructions: FOLLOW UP WITH DR CRAMER IN 1-2 DAYS USE MEDICATION DIRECTED RETURN TO ER IF YOUR SYMPTOMS WORSEN SEGUIMIENTO CON DR CRAMER EN 1-2 GEORGES USE MEDICAMENTOS SEGN SE INDICA REGRESE A ER SI JOMAR SNTOMAS FUNCIONAN Prescriptions: Amoxicillin/Clavulanate [Augmentin 875 MG-125 MG] 1 tab PO BID #14 tab Forms: [employer] (Salvadorean) Print Language: AFGHAN - POA Present On Arrival: None - Clinical Impression Clinical Impression: Anterior epistaxis - Scribe Statement The provider has reviewed the documentation as recorded by the Jeff Stanford Provider Attestation: All medical record entries made by the Jeff were at my direction and personally dictated by me. I have reviewed the chart and agree that the record accurately reflects my personal performance of the history, physical exam, medical decision making, and the department course for this patient. I have also personally directed, reviewed, and agree with the discharge instructions and disposition.
[2018-03-03] MEDS ORDERED: Amoxicillin-Clav 875-125 mg Tab PO ONE (10:10)
== END 2018-03-03 10:14 | disposition home or self-care (01) ==
LOC: C.ER 09:34
DX: R04.0 Epistaxis (principal)

== ENCOUNTER 2018-03-05 10:12 | Emergency (ER) | payer MEDICAID ==
[2018-03-05 10:13] VITALS: BMI 36.8
[2018-03-05 10:22] VITALS: TEMP 98.2
--- NOTE | 2018-03-05 10:55 | C.PDOC ---
History Of Present Illness 62-year-old male, presents to the emergency department for nasal packing removal. Patient states that two days ago, he had a nose bleed from left nare, which was packed at that time. Patient was instructed to follow up with ENT, but he was unable to follow due to insurance issues. He denies any new symptoms at this time. Time Seen by Provider: 03/05/18 10:21 Chief Complaint (Nursing): ENT Problem History Per: Patient History/Exam Limitations: None Current Symptoms Are (Timing): Still Present Past Medical History Reviewed: Historical Data, Nursing Documentation, Vital Signs Vital Signs: Last Vital Signs Temp 98.2 F 03/05/18 10:13 Pulse 109 H 03/05/18 10:13 Resp 18 03/05/18 10:13 BP 150/74 03/05/18 10:13 Pulse Ox 99 03/05/18 10:58 - Medical History PMH: Anxiety, Asthma, CHF, Depression, HTN, Hypercholesterolemia, Kidney Stones , Chronic Kidney Disease Comment Only: Back Problems (Herniated disc) Surgical History: Cholecystectomy - [facility] Procedures ALCOHOL DETOXIFICATION (06/26/13) CLOSED ENDOSCOPIC BIOPSY OF LARGE INTESTINE (08/30/13) DILATION OF RIGHT URETER WITH INTRALUMINAL DEVICE, ENDO (06/04/17) INSERTION OF INFUSION DEV INTO SUP VENA CAVA, PERC APPROACH (06/04/17) NAIL REMOVAL (02/02/13) ULTRASONOGRAPHY OF SUPERIOR VENA CAVA, GUIDANCE (06/04/17) Family History: States: No Known Family Hx - Social History Hx Tobacco Use: Yes Hx Alcohol Use: Yes Hx Substance Use: No - Immunization History Hx Tetanus Toxoid Vaccination: Yes Hx Influenza Vaccination: Yes Hx Pneumococcal Vaccination: Yes Review Of Systems Constitutional: Negative for: Fever ENT: Negative for: Nose Pain, Nose Discharge, Nose Congestion Gastrointestinal: Negative for: Nausea, Vomiting Neurological: Negative for: Headache Physical Exam - Physical Exam Appears: Well, Non-toxic, No Acute Distress Skin: Normal Color, Warm, Dry, No Rash Head: Atraumatic, Normacephalic Eye(s): bilateral: Normal Inspection, PERRL Ear(s): Bilateral: Normal Nose: Normal, No Epistaxis (no active bleeding (+)packing left nare) Oral Mucosa: Moist Lips: Normal Appearing Neck: Normal ROM, Supple Respiratory: No Decreased Breath Sounds, No Accessory Muscle Use Extremity: Normal ROM, No Deformity Neurological/Psych: Oriented x3, Normal Cognition ED Course And Treatment O2 Sat by Pulse Oximetry: 99 (RA) Pulse Ox Interpretation: Normal Progress Note: packing removed. No active bleeding. No blood visualized in oropharynx. Pt instructed to f.u with clinic. Disposition Counseled Patient/Family Regarding: Diagnosis, Need For Followup - Disposition Referrals: Minor Mancilla MD [Staff Provider] - Disposition: HOME/ ROUTINE Disposition Time: 11:27 Condition: STABLE Additional Instructions: Follow up with your doctor. Nasal packing removed in Emergency Department today. Don't blow your nose. Forms: [employer] (Bahraini), Gen Discharge Inst Bahraini - POA Present On Arrival: None - Clinical Impression Clinical Impression: Bleeding nose - Scribe Statement The provider has reviewed the documentation as recorded by the Scribe (Annie Restrepo) All medical record entries made by the Scribe were at my direction and personally dictated by me. I have reviewed the chart and agree that the record accurately reflects my personal performance of the history, physical exam, medical decision making, and the department course for this patient. I have also personally directed, reviewed, and agree with the discharge instructions and disposition.
[2018-03-05 11:43] VITALS: BP 142/85; PULSE 84; RESP 16; O2SAT 98
== END 2018-03-05 11:42 | disposition home or self-care (01) ==
LOC: C.ER 10:12
DX: R04.0 Epistaxis (principal)

== ENCOUNTER 2018-03-27 14:23 | Emergency (ER) | payer MEDICAID ==
[2018-03-27 14:23] VITALS: BMI 36.8
[2018-03-27 14:27] VITALS: BP 158/74; PULSE 81; RESP 20; TEMP 97.6; O2SAT 98
--- NOTE | 2018-03-27 14:53 | C.PDOC ---
History Of Present Illness 62 yr old M c/o feeling discomfort of proximal right ear canal on palplation when was taking a shower this AM. No pain or discomfort now. Pt states similar discomfort happened yesterday as well. Denies fever, rhinorrhea, sore throat. Pt requested a refill on albuterol that he uses for asthma. Time Seen by Provider: 03/27/18 14:35 Chief Complaint (Nursing): ENT Problem History Per: Patient History/Exam Limitations: no limitations Onset/Duration Of Symptoms: Days (2) Current Symptoms Are (Timing): Gone Injury To Eye?: No Pain Scale Rating Of: 0 Past Medical History Reviewed: Historical Data, Nursing Documentation, Vital Signs Vital Signs: Last Vital Signs Temp 97.6 F 03/27/18 14:24 Pulse 81 03/27/18 14:24 Resp 20 03/27/18 14:24 BP 158/74 H 03/27/18 14:24 Pulse Ox 98 03/27/18 14:56 - Medical History PMH: Anxiety, Asthma, CHF, Depression, HTN, Hypercholesterolemia, Kidney Stones , Chronic Kidney Disease Comment Only: Back Problems (Herniated disc) Surgical History: Cholecystectomy - [facility] Procedures ALCOHOL DETOXIFICATION (06/26/13) CLOSED ENDOSCOPIC BIOPSY OF LARGE INTESTINE (08/30/13) DILATION OF RIGHT URETER WITH INTRALUMINAL DEVICE, ENDO (06/04/17) INSERTION OF INFUSION DEV INTO SUP VENA CAVA, PERC APPROACH (06/04/17) NAIL REMOVAL (02/02/13) ULTRASONOGRAPHY OF SUPERIOR VENA CAVA, GUIDANCE (06/04/17) Family History: States: Unknown Family Hx - Social History Hx Tobacco Use: Yes Hx Alcohol Use: Yes Hx Substance Use: No - Immunization History Hx Tetanus Toxoid Vaccination: Yes Hx Influenza Vaccination: Yes Hx Pneumococcal Vaccination: Yes Review Of Systems Constitutional: Negative for: Fever Eyes: Negative for: Pain ENT: Positive for: Ear Pain. Negative for: Ear Discharge, Nose Pain Physical Exam - Physical Exam Appears: Well, Non-toxic, No Acute Distress Skin: Normal Color, Warm, Dry Head: Atraumatic, Normacephalic Eye(s): bilateral: Normal Inspection Ear(s): Bilateral: Normal Nose: Normal Oral Mucosa: Moist Tongue: Normal Appearing Lips: Normal Appearing Gingiva: Normal Appearing Throat: Normal Neck: Normal, Normal ROM Chest: Symmetrical Cardiovascular: Rhythm Regular Respiratory: Normal Breath Sounds Gastrointestinal/Abdominal: Normal Exam Back: Normal Inspection ED Course And Treatment O2 Sat by Pulse Oximetry: 98 Disposition Counseled Patient/Family Regarding: Diagnosis, Need For Followup, Rx Given - Disposition Referrals: Ulysses Quiroga MD [Staff Provider] - Disposition: HOME/ ROUTINE Disposition Time: 14:48 Condition: STABLE Additional Instructions: FOLLOW UP WITH DR. QUIROGA ON THURSDAY FOR RE-EVALUATION. IF SYMPTOMS GET WORSE OR ANY NEW CONCERNING SYMPTOMS DEVELOP RETURN TO ED. Prescriptions: Pseudoephedrine HCl [Sudafed 12 Hour] 120 mg PO BID #6 tablet.er Albuterol HFA [Ventolin HFA 90 mcg/actuation (8 g)] 2 puff IH [id number] PRN #1 bottle PRN Reason: Wheezing Instructions: Ear Infections (Otitis Media) Forms: [employer] [facility] (Citizen Of [place]) - Clinical Impression Clinical Impression: Ear pain, right
== END 2018-03-27 14:59 | disposition home or self-care (01) ==
LOC: C.ER 14:23
DX: H92.01 Otalgia, right ear (principal); E78.00 Pure hypercholesterolemia, unspecified; I12.9 Hypertensive chronic kidney disease with stage 1 through stage 4 chronic kidney disease, or unspecified chronic kidney disease; N18.9 Chronic kidney disease, unspecified; I50.9 Heart failure, unspecified; Z72.0 Tobacco use

== ENCOUNTER 2018-04-23 11:18 | Emergency (ER) | payer MEDICAID ==
[2018-04-23 11:18] VITALS: BMI 36.8
[2018-04-23 11:57] VITALS: BP 160/96; PULSE 82; RESP 16; TEMP 98.1; O2SAT 98
--- NOTE | 2018-04-23 11:58 | C.PDOC ---
History Of Present Illness The patient is a 62-year-old male with history of chronic back pain, which he manages with pain medication. He is leaving for [place] tomorrow and presents to the ED requesting a Toradol injection. Otherwise, he denies fever, chills, urinary/bowel incontinence, extremity numbness/weakness, or recent trauma/injury. Chief Complaint (Nursing): Back Pain History Per: Patient History/Exam Limitations: no limitations Onset/Duration Of Symptoms: Hrs Current Symptoms Are (Timing): Still Present Quality Of Discomfort: "Pain" Previous Symptoms: Back Pain Associated Symptoms: denies: Incontinence, New Weakness, New Numbness Additional History Per: Patient Past Medical History Reviewed: Historical Data, Nursing Documentation, Vital Signs Vital Signs: Last Vital Signs Temp 98.1 F 04/23/18 11:47 Pulse 82 04/23/18 11:47 Resp 16 04/23/18 11:47 BP 160/96 H 04/23/18 11:47 Pulse Ox 98 04/23/18 15:11 - Medical History PMH: Anxiety, Asthma, CHF, Depression, HTN, Hypercholesterolemia, Kidney Stones , Chronic Kidney Disease Comment Only: Back Problems (Herniated disc) Surgical History: Cholecystectomy - [facility] Procedures ALCOHOL DETOXIFICATION (06/26/13) CLOSED ENDOSCOPIC BIOPSY OF LARGE INTESTINE (08/30/13) DILATION OF RIGHT URETER WITH INTRALUMINAL DEVICE, ENDO (06/04/17) INSERTION OF INFUSION DEV INTO SUP VENA CAVA, PERC APPROACH (06/04/17) NAIL REMOVAL (02/02/13) ULTRASONOGRAPHY OF SUPERIOR VENA CAVA, GUIDANCE (06/04/17) Family History: States: Unknown Family Hx - Social History Hx Tobacco Use: Yes Hx Alcohol Use: Yes Hx Substance Use: No - Immunization History Hx Tetanus Toxoid Vaccination: Yes Hx Influenza Vaccination: Yes Hx Pneumococcal Vaccination: Yes Review Of Systems Constitutional: Negative for: Fever, Chills Genitourinary: Negative for: Incontinence Musculoskeletal: Positive for: Back Pain Neurological: Negative for: Weakness, Numbness Physical Exam - Physical Exam Appears: Non-toxic, No Acute Distress Skin: Normal Color, Warm, Dry Head: Atraumatic, Normacephalic Neck: Supple Chest: Symmetrical, No Deformity, No Tenderness Back: Other (tenderness to lower back region ) Extremity: Normal ROM, Capillary Refill (less than 2 seconds ) Neurological/Psych: Oriented x3, Normal Speech, Normal Cognition Gait: Steady ED Course And Treatment O2 Sat by Pulse Oximetry: 98 (on RA) Pulse Ox Interpretation: Normal Progress Note: Toradol IM given. Patient's [facility] records reviewed. On re- examination, patient is resting comfortably, showing no signs of distress and reports an improvement in his pain. Patient is ambulatory in the ED without distress and is stable for discharge. Patient is advised to follow up with his PMD within a timely manner for further evaluation. Disposition - Disposition Referrals: Minor Mancilla MD [Staff Provider] - Disposition: HOME/ ROUTINE Disposition Time: 12:04 Condition: STABLE Additional Instructions: Follow up with PMD within 1-2 days. Return to ED if feel worse. Instructions: Low Back Pain (DC) Forms: [employer] (Slovak) - Clinical Impression Clinical Impression: Chronic low back pain - PA / SQL DEVELOPER / Resident Statement MD/DO has reviewed & agrees with the documentation as recorded. - Scribe Statement The provider has reviewed the documentation as recorded by the Scribe (Joy Tam) All medical record entries made by the Scribe were at my direction and personally dictated by me. I have reviewed the chart and agree that the record accurately reflects my personal performance of the history, physical exam, medical decision making, and the department course for this patient. I have also personally directed, reviewed, and agree with the discharge instructions and disposition.
== END 2018-04-23 12:19 | disposition home or self-care (01) ==
LOC: C.ER 11:18
DX: G89.29 Other chronic pain (principal); M54.5 Low back pain; E78.00 Pure hypercholesterolemia, unspecified; I12.9 Hypertensive chronic kidney disease with stage 1 through stage 4 chronic kidney disease, or unspecified chronic kidney disease; N18.9 Chronic kidney disease, unspecified; I50.9 Heart failure, unspecified; Z72.0 Tobacco use
CPT/HCPCS: 96372; 99283; J1885

== ENCOUNTER 2018-07-10 12:55 | Emergency (ER) | payer MEDICAID ==
[2018-07-10 12:56] VITALS: BMI 36.8
[2018-07-10 13:17] VITALS: RESP 18; TEMP 97.7
[2018-07-10] MEDS ORDERED: Multivitamin (MVI) 10 ML, Thiamine 100 MG, Folic Acid 1 MG in Sodium Chloride 0.9% 1,00... IV ONE (14:12)
--- NOTE | 2018-07-10 14:21 | C.PDOC ---
History Of Present Illness 62 years old male with PMHx of liver disease, kidney stones, and alcoholism presents to ED requesting medication for shaking. Patient states he was sober "for a while" then he went to [place] and started drinking again; realized he can not stop drinking on his own. He is a patient of Minor Bassett and has had similar complaints due to excessive drinking. Denies fever, chills, nausea, or vomiting. Time Seen by Provider: 07/10/18 13:32 Chief Complaint (Nursing): Substance Abuse History Per: Patient History/Exam Limitations: no limitations Onset/Duration Of Symptoms: Hrs Current Symptoms Are (Timing): Still Present Suicide/Self Injury Attempted (Context): None Modifying Factor(s): Alcohol Associated Symptoms: denies: Suicidal Thoughts, Suicidal Plan Involuntary Hold By: None Recent travel outside of the [place]: No Past Medical History Reviewed: Historical Data, Nursing Documentation, Vital Signs Vital Signs: Last Vital Signs Temp 97.7 F 07/10/18 13:14 Pulse 92 H 07/10/18 13:14 Resp 18 07/10/18 13:14 BP 134/78 07/10/18 13:14 Pulse Ox 98 07/10/18 13:14 - Medical History PMH: Anxiety, Asthma, Back Problems (Herniated disc), CHF, Depression, HTN, Hypercholesterolemia, Kidney Stones, Chronic Kidney Disease Surgical History: Cholecystectomy - [facility] Procedures ALCOHOL DETOXIFICATION (06/26/13) CLOSED ENDOSCOPIC BIOPSY OF LARGE INTESTINE (08/30/13) DILATION OF RIGHT URETER WITH INTRALUMINAL DEVICE, ENDO (06/04/17) INSERTION OF INFUSION DEV INTO SUP VENA CAVA, PERC APPROACH (06/04/17) NAIL REMOVAL (02/02/13) ULTRASONOGRAPHY OF SUPERIOR VENA CAVA, GUIDANCE (06/04/17) Family History: States: Unknown Family Hx - Social History Hx Tobacco Use: Yes Hx Alcohol Use: Yes Hx Substance Use: No - Immunization History Hx Tetanus Toxoid Vaccination: Yes Hx Influenza Vaccination: Yes Hx Pneumococcal Vaccination: Yes Review Of Systems Constitutional: Positive for: Other (Shaking ). Negative for: Fever, Chills Gastrointestinal: Negative for: Nausea, Vomiting, Diarrhea Skin: Negative for: Rash Neurological: Negative for: Weakness, Numbness Physical Exam - Physical Exam Appears: Non-toxic, No Acute Distress, Other (Tremulous) Head: Atraumatic, Normacephalic Eye(s): bilateral: Normal Inspection, PERRL, EOMI, Other (Conjunctiva. Injected. ) Oral Mucosa: Moist Throat: Normal, No Erythema, No Exudate, No Drooling Neck: Normal ROM, Supple Chest: Symmetrical, No Tenderness Cardiovascular: Rhythm Regular Respiratory: Normal Breath Sounds, No Rales, No Rhonchi, No Wheezing Gastrointestinal/Abdominal: Bowel Sounds (Active ), Soft, No Tenderness, No Distention, Other (Obese ) Extremity: Normal ROM Extremity: Bilateral: Atraumatic, Normal Color And Temperature, Normal ROM Pulses: Left Radial: Normal, Right Radial: Normal Neurological/Psych: Oriented x3, Normal Speech Gait: Steady ED Course And Treatment O2 Sat by Pulse Oximetry: 98 (RA) Pulse Ox Interpretation: Normal Medical Decision Making Medical Decision Making: Plan: * Librium * Banana Bag * Re-evaluate Disposition Discussed With : Minor Mancilla Counseled Patient/Family Regarding: Diagnosis, Need For Followup - Disposition Referrals: Minor Mancilla MD [Staff Provider] - Disposition: HOME/ ROUTINE Disposition Time: 17:53 Condition: STABLE Instructions: Alcohol Use - When Is Drinking a Problem? Forms: [facility] (Maori), Gen Discharge Inst Maori - POA Present On Arrival: None - Clinical Impression Clinical Impression: Alcohol abuse - Scribe Statement The provider has reviewed the documentation as recorded by the Scribpriti Mistry All medical record entries made by the Scribe were at my direction and personally dictated by me. I have reviewed the chart and agree that the record accurately reflects my personal performance of the history, physical exam, medical decision making, and the department course for this patient. I have also personally directed, reviewed, and agree with the discharge instructions and disposition.
[2018-07-10 18:49] VITALS: BP 151/81; PULSE 87; O2SAT 97
== END 2018-07-10 19:09 | disposition home or self-care (01) ==
LOC: C.ER 12:55
DX: F10.10 Alcohol abuse, uncomplicated (principal); Y90.9 Presence of alcohol in blood, level not specified
CPT/HCPCS: 96365; 96366; 99284; J3411; J7030

== ENCOUNTER 2018-09-01 13:41 | Emergency (ER) | payer MEDICAID ==
[2018-09-01 13:41] VITALS: BMI 36.8
[2018-09-01 14:00] VITALS: BP 161/94; PULSE 81; RESP 18; TEMP 98.5; O2SAT 98
[2018-09-01] MEDS ORDERED: Lidocaine 5% Patch TD STA (14:12)
[2018-09-01] MEDS ORDERED: Lidocaine 5% Patch TD ONE (14:22)
--- NOTE | 2018-09-01 14:30 | C.PDOC ---
History Of Present Illness Pt c/o low back pain. Denies recent injury. Time Seen by Provider: 09/01/18 14:05 Chief Complaint (Nursing): Back Pain History Per: Patient Onset/Duration Of Symptoms: Days Current Symptoms Are (Timing): Still Present Quality Of Discomfort: "Pain" Severity: Moderate Previous Symptoms: Back Pain Associated Symptoms: None Exacerbating Factor(s): Movement Additional History Per: Prior Records Past Medical History Reviewed: Historical Data, Nursing Documentation, Vital Signs Vital Signs: Last Vital Signs Temp 98.5 F 09/01/18 13:58 Pulse 81 09/01/18 13:58 Resp 18 09/01/18 13:58 BP 161/94 H 09/01/18 13:58 Pulse Ox 98 09/01/18 13:58 - Medical History PMH: Anxiety, Asthma, Back Problems (Herniated disc), CHF, Depression, HTN, Hypercholesterolemia, Kidney Stones, Chronic Kidney Disease Surgical History: Cholecystectomy - [facility] Procedures ALCOHOL DETOXIFICATION (06/26/13) CLOSED ENDOSCOPIC BIOPSY OF LARGE INTESTINE (08/30/13) DILATION OF RIGHT URETER WITH INTRALUMINAL DEVICE, ENDO (06/04/17) INSERTION OF INFUSION DEV INTO SUP VENA CAVA, PERC APPROACH (06/04/17) NAIL REMOVAL (02/02/13) ULTRASONOGRAPHY OF SUPERIOR VENA CAVA, GUIDANCE (06/04/17) Family History: States: Unknown Family Hx - Social History Hx Tobacco Use: Yes Hx Alcohol Use: Yes Hx Substance Use: No - Immunization History Hx Tetanus Toxoid Vaccination: Yes Hx Influenza Vaccination: Yes Hx Pneumococcal Vaccination: Yes Review Of Systems Except As Marked, All Systems Reviewed And Found Negative. Constitutional: Negative for: Fever, Weakness Cardiovascular: Negative for: Chest Pain Respiratory: Negative for: Shortness of Breath Gastrointestinal: Negative for: Abdominal Pain Genitourinary: Negative for: Dysuria, Incontinence, Hematuria Musculoskeletal: Positive for: Back Pain. Negative for: Leg Pain Skin: Negative for: Rash Neurological: Negative for: Weakness, Numbness Physical Exam - Physical Exam Appears: Non-toxic, No Acute Distress Skin: Normal Color, Warm, Dry, No Rash Head: Atraumatic, Normacephalic Eye(s): bilateral: PERRL, EOMI Neck: Normal ROM, Supple Back: No CVA Tenderness, No Vertebral Tenderness, Paraspinal Tenderness (lumbar) Extremity: Normal ROM Neurological/Psych: Oriented x3, Normal Motor, Normal Sensation ED Course And Treatment O2 Sat by Pulse Oximetry: 98 Pulse Ox Interpretation: Normal Reassessment Condition: Improved Disposition Counseled Patient/Family Regarding: Diagnosis, Need For Followup, Rx Given - Disposition Referrals: Kyle Mancilla MD [Medical Doctor] - Disposition: HOME/ ROUTINE Disposition Time: 14:30 Condition: STABLE Additional Instructions: Follow up with your doctor for further evaluation and treatment. Return to the ER if you develop weakness, numbness, abdominal pain, trouble urinating, worsening of symptoms or have any other concerns. Prescriptions: Cyclobenzaprine [Cyclobenzaprine HCl] 10 mg PO TID PRN #15 tab PRN Reason: Muscle Spasm Instructions: Low Back Pain (DC) - Clinical Impression Clinical Impression: Low back pain
== END 2018-09-01 14:35 | disposition home or self-care (01) ==
LOC: C.ER 13:41
DX: M54.5 Low back pain (principal)
CPT/HCPCS: 96372; 99283; J1885

== ENCOUNTER 2018-12-30 11:33 | Emergency (ER) | payer MEDICAID ==
[2018-12-30 11:34] VITALS: BMI 36.8
[2018-12-30 11:47] VITALS: BP 161/81; PULSE 91; RESP 20; TEMP 97.7; O2SAT 98
[2018-12-30] MEDS ORDERED: Lidocaine 5% Patch TD STA (12:02)
--- NOTE | 2018-12-30 12:12 | C.PDOC ---
History Of Present Illness Patient is a 63 year old male, with a PMHx of herniated disc in his lower back, who presents to the ED c/o lower back pain for over the past 2 weeks. Patient reports the pain as a 7/10 and has been taking Motrin without relief. He reports that he has seen a "back specialist" in the past who recommended surgery, but deferred surgery at the time. He has been seen in the ED multiple times for this reason. Patient denies any weakness, numbness, tingling to extremities, urinary or bowel incontinence. Chief Complaint (Nursing): Back Pain History Per: Patient History/Exam Limitations: no limitations Onset/Duration Of Symptoms: Days (2 weeks) Current Symptoms Are (Timing): Still Present Quality Of Discomfort: "Pain" Severity: Moderate Pain Scale Rating Of: 7 Previous Symptoms: Back Pain Associated Symptoms: denies: Incontinence, New Weakness, New Numbness Exacerbating Factor(s): Turning Recent travel outside of the [place]: No Additional History Per: Patient Past Medical History Reviewed: Historical Data, Nursing Documentation, Vital Signs Vital Signs: Last Vital Signs Temp 97.7 F 12/30/18 11:43 Pulse 91 H 12/30/18 11:43 Resp 20 12/30/18 11:43 BP 161/81 H 12/30/18 11:43 Pulse Ox 98 12/30/18 11:43 Primary Care Provider: Kyle Mancilla - Medical History PMH: Anxiety, Asthma, Back Problems (Herniated disc), CHF, Depression, HTN, Hypercholesterolemia, Kidney Stones, Chronic Kidney Disease Surgical History: Cholecystectomy - [facility] Procedures ALCOHOL DETOXIFICATION (06/26/13) CLOSED ENDOSCOPIC BIOPSY OF LARGE INTESTINE (08/30/13) DILATION OF RIGHT URETER WITH INTRALUMINAL DEVICE, ENDO (06/04/17) INSERTION OF INFUSION DEV INTO SUP VENA CAVA, PERC APPROACH (06/04/17) NAIL REMOVAL (02/02/13) ULTRASONOGRAPHY OF SUPERIOR VENA CAVA, GUIDANCE (06/04/17) Family History: States: Unknown Family Hx - Social History Hx Tobacco Use: Yes Hx Alcohol Use: No Hx Substance Use: No - Immunization History Hx Tetanus Toxoid Vaccination: Yes Hx Influenza Vaccination: Yes Hx Pneumococcal Vaccination: Yes Review Of Systems Constitutional: Negative for: Weakness Cardiovascular: Negative for: Chest Pain Respiratory: Negative for: Shortness of Breath Gastrointestinal: Negative for: Nausea, Vomiting Genitourinary: Negative for: Incontinence Musculoskeletal: Positive for: Back Pain (lower back). Negative for: Neck Pain Skin: Negative for: Rash, Bruising Neurological: Negative for: Numbness, Other (tingling to extremities) Physical Exam - Physical Exam Appears: Non-toxic, No Acute Distress Skin: Warm, Dry Head: Atraumatic, Normacephalic Neck: Normal ROM, Supple Chest: Symmetrical, No Deformity Cardiovascular: Rhythm Regular Respiratory: Normal Breath Sounds, No Accessory Muscle Use, No Wheezing Gastrointestinal/Abdominal: Soft, No Tenderness Back: No CVA Tenderness, Vertebral Tenderness, Decreased ROM (due to pain), Paraspinal Tenderness (lumbar tednerness ), Other (No ecchymosis, erythema, or edema) Extremity: No Pedal Edema, No Calf Tenderness, Capillary Refill (less than 2 seconds), No Swelling, Other (Limited ROM due to pain) Extremity: Bilateral: Normal Color And Temperature Neurological/Psych: Oriented x3, Normal Speech, Normal Cognition, Normal Sensation Gait: Steady ED Course And Treatment O2 Sat by Pulse Oximetry: 98 (on RA) Pulse Ox Interpretation: Normal Medical Decision Making Medical Decision Making: Plan: Toradol 60mg IM Lidoderm 1ea TD Continue Meds as prescribed Follow up with PMD to be referred to Neurosurgeon Rest and Ice the area Return to the ED if symptoms worsen Patient verbalized understanding and is in agreement with plan Disposition Counseled Patient/Family Regarding: Diagnosis, Need For Followup, Rx Given - Disposition Referrals: Kyle Mancilla MD [Medical Doctor] - Fausto Marvin MD [Staff Provider] - Disposition: HOME/ ROUTINE Disposition Time: 12:09 Condition: STABLE Additional Instructions: Continue Meds as prescribed Follow up with PMD to be referred to back specialist Rest and Ice the area Return to the ED if symptoms worsen Prescriptions: Cyclobenzaprine [Flexeril] 10 mg PO TID PRN #15 tab PRN Reason: Muscle Spasm Lidocaine 5% [Lidoderm] 1 ea TD DAILY PRN #30 patch PRN Reason: Pain, Moderate (4-7) Naproxen [Naprosyn] 500 mg PO BID #30 tablet Instructions: Low Back Pain (DC), Herniated Disc (DC) Forms: [employer] ([place]ian) - Clinical Impression Clinical Impression: Lumbar back pain, Herniated disc - PA / MANAGER RAIL / Resident Statement MD/DO has reviewed & agrees with the documentation as recorded. - Scribe Statement The provider has reviewed the documentation as recorded by the Jeff Stern All medical record entries made by the Jeff were at my direction and personally dictated by me. I have reviewed the chart and agree that the record accurately reflects my personal performance of the history, physical exam, medical decision making, and the department course for this patient. I have also personally directed, reviewed, and agree with the discharge instructions and disposition.
[2018-12-30] MEDS ORDERED: Lidocaine 5% Patch TD ONE (12:19)
== END 2018-12-30 12:25 | disposition home or self-care (01) ==
LOC: C.ER 11:33
DX: M51.26 Other intervertebral disc displacement, lumbar region (principal)
CPT/HCPCS: 96372; 99283; J1885